=== PATIENT | female | born 1970 | race Caucasian/White ===

== ENCOUNTER → 2018-03-31 08:45 | Outpatient (CLI) | payer OTHER, SELFPAY ==
--- NOTE | 2018-03-31 08:50 | ECHOD_ITS ---
Reason For Study: MV DISORDER Procedure This was a 2D Doppler, Color Flow transthoracic echocardiogram. The exam was of adequate technical quality. Exam performed in department. Left Ventricle Normal LV size. Left ventricular systolic function is normal. The estimated ejection fraction is 60 %. No evidence for diastolic dysfunction. No regional wall motion abnormalities noted. Right Ventricle Normal RV size. Normal systolic function. Atria The left atrium is mildly enlarged. Normal right atrium. No doppler evidence for ASD. Mitral Valve There is no mitral annular calcification. Mild diffuse mitral valve thickening. Mild mitral valve prolapse. Trivial mitral valve insufficiency. Tricuspid Valve Normal tricuspid valve. Trivial tricuspid valve insufficiency. Right ventricular systolic pressure estimated to be 26 mmHg. Aortic Valve Trisinus/trileaflet aortic valve. Normal aortic valve. Pulmonic Valve The pulmonic valve is not well visualized. Mild (1+) pulmonic valve insufficiency. Great Vessels Normal sized aortic root. Pericardium/Pleural No pericardial effusion. MMode/2D Measurements & Calculations LVIDd: 5.1 cm IVSd: 1.1 cm Ao root diam: 3.3 cm LVIDs: 3.2 cm LVPWd: 1.0 cm LA dimension: 3.9 cm RVDd: 3.1 cm FS: 36.9 % LAV(MOD-bp): 60.8 ml LA A4 area: 19.2 cm2 RA A4 area: 19.1 cm2 LAV(MOD-bp) Indexed: 83.2 ml/m2 LAV(MOD-sp2): 63.5 ml LAV(MOD-sp4): 52.6 ml Doppler Measurements & Calculations MV E max wilian: 92.5 cm/sec Lat Peak E' Wilian: 13.9 cm/sec Med Peak E' Wilian: 11.0 cm/sec MV A max wilian: 69.1 cm/sec E/E' lat: 6.7 E/E' med: 8.4 MV E/A: 1.3 Ao V2 max: 136.7 cm/sec LV V1 max: 100.7 cm/sec PA V2 max: 99.7 cm/sec Ao max P.5 mmHg LV V1 max P.1 mmHg PI end-d wilian: 124.6 cm/sec TR max wilian: 239.1 cm/sec TR max P.3 mmHg Interpretation Summary Left ventricular systolic function is normal. The estimated ejection fraction is 60 %. The left atrium is mildly enlarged. Mild diffuse mitral valve thickening. Mild mitral valve prolapse. Trivial mitral valve insufficiency. Trivial tricuspid valve insufficiency. Mild (1+) pulmonic valve insufficiency. Right ventricular systolic pressure estimated to be 26 mmHg. No evidence for diastolic dysfunction. Ordering Physician: Jesse Carpio Referring Physician: Jesse Carpio Performed By: Shelby Hunter RDCS, RVT
== END ==
PROVIDERS: Family Provider Family Medicine; PCP Family Medicine; Visit Provider Family Medicine
DX: I05.9 Rheumatic mitral valve disease, unspecified (principal)
CPT/HCPCS: 93306

== ENCOUNTER 2018-05-10 16:00 | Outpatient (RCR) | payer OTHER, SELFPAY ==
--- NOTE | 2018-03-22 10:45 | HP.PTEVAL_ITS ---
Patient's Visit Information KRISTI MEDRANO is a 47 year old F referred to Physical Therapy by Jesse Carpio with a diagnosis of R plantar fascitis. Date of Evaluation: 03/16/18 Physical Therapist: Darci Nair - Visit Plan Frequency: 2x /Week Duration: 4 Weeks Plan: Start with G/S stretching, plantar fascia stretching, DFM to plantar fascia/graston. Use US to reduce symptoms. Aggressive stretching as tolerated. - Subjective Subjective: Pt. is here today for her initial evaluation with diagnosis of R foot plantar fascitis. Pt. reports having this pain for ~4-5 years, but has recently become worse. Pt. has has some relief with purchasing over the counter orthotics. Pt. works as a home health aide and has been having a lot of pain with walking, negotiating stairs, increased pain in mornings. She does have a night splint that she has been wearing. Pt. has not trialed any exercises for her symptoms. Pt. denies N/T in either LEs. Pt. reports being able to walk upto 1 mile, but has to stop due to pain. Pt. has recently purchased new shoes which helps. Pt. is hopeful to reduce symptoms in order to get back to work and recreational walking with increased tolerance. - Pain R plantar fascia Pain Intensity (Out of 10): 4 Pain Intensity Range: 1, 6 - Objective POSTURE: PT. has normal posture in stance. Pt. has slight over pronation in SLS. Pt. reports increased pain in barefoot. PALPATION: Pt. has increased pain with palpation of inferior aspect of calcaneus, most likely heel spur. Pt. has pain at plantar fascia insertion. Pt. has pain throughout longitudinal arch. NEUROLOGICAL: Pt. has normal sensation to light and sharp touch throughout bilateral. Pt. has 2+ bilateral achilles and patellar DTR bilaterally. Pt. is able to rise on heels and toes without issues, no visible weakness noted. ROM: L ankle- DF 12drg, PF 55deg, INV 18deg, EVR 18. R ankle- 8 deg of DF, PF 54deg, INV 18deg, EVR 18deg. MMT: 5/5 throughout bilateral ankles, 4+/5 bilateral foot intrinsic strength. GAIT: Pt. ambulates without AD. Pt. has slight antalgic pattern during R stance phase. Pt. has increased foot pronation with hind foot valgus. STAIRS: Pt. has increased pain with eccentric loading with R stance phase, no pain with ascending. SPECIAL TESTING: + windlass testing on R side, both unloaded and loaded. - Goals Goal 1:: Pt. to be I with HEP. Goal Time Frame: 4-6 Weeks Goal 2:: Pt. to have increased R ankle DF to 18deg reducing stress applied to plantar fascia with gait and standing positions. Goal Time Frame: 4-6 Weeks Goal 3:: Pt. to ambulate unlimited distance with 0-2/10 pain allowing for increased community mobility and tolerance to recreational walking. Goal Time Frame: 4-6 Weeks Goal 4:: Pt. to negotiate steps with reciprocal pattern with 1 HR with 0-2/10 pain allowing for increased tolerance to all work and home activities. Goal Time Frame: 4-6 Weeks Goal 5:: Pt. to complete all work related activities with 0-2/10 pain allowing for increased tolerance to all work activities. Goal Time Frame: 4-6 Weeks - Rehabilitation Potential Physical Therapy Diagnosis: Pt. has signs and symptoms consistent withR plantar fascitis, but also has heel spuring that may be contributing to her issues. Pt. has descreased facia length and G/S length. Pt. Rehabilitation Potential: Excellent - Anticipated Interventions Patient/Client Instruction: Educate patient on: Condition, Plan of Care, Risk Factors, Benefits of Fitness Program For the Purpose of:: To improve health and function, To foster healthy habits, To improve decision making, To facilitate caregiver knowledge, To improve self management, To prevent re-injury, To improve ability to perform tasks related to life management, To improve tolerance to ADL's Therapeutic Exercise to Include: Strength training, Power training, Body mechanics, Postural training, Flexibilty training, Passive ROM, Active ROM For the Purpose of:: To decrease pain, To increase ROM, To improve nutrient delivery to tissue, To increase oxygenation perfusion, To improve muscle performance and motor function, To improve gait and locomotor functions, To improve health of tissue, To decrease soft tissue restriction, To increase flexibility/ROM, To improve endurance, To improve balance Manual Therapy Techniques to Include: Massage, Mobilization, Passive ROM, Functional dry needling, Soft tissue mobilization For the Purpose of:: To decrease pain, To decrease swelling/inflammation, To increase ROM Ultrasound (thermal/non thermal): Yes For the Purpose of:: To decrease pain, To decrease swelling/inflammation, To increase ROM, To improve health of tissue, To decrease soft tissue restriction, To increase flexibility/ROM Thank you for the opportunity to evaluate your patient. For Medicare and Medicare HMO plans, please review the plan of care and approve it. It will need to be FAXED BACK to us at [phone] for Medicare purposes. Please let me know if there are questions or concerns regarding this plan of care. Physician Signature: Date:
--- NOTE | 2018-05-11 07:58 | HP.PTDCSUM ---
HP - PT D/C Summary It has been my pleasure to treat KRISTI MEDRANO under orders from Jesse Carpio, for the diagnosis of R plantar fascitis for a total of 8 visit(s). Discharge Date: 05/10/18 Please see the following information for a summary of their discharge status. - Subjective Subjective: Pt. reports having continued pain in lateral heel. Pt. ambulates with antalgic pattern. She reports having a good few weeks after injection, but is getting worse again. Pt. desires to follow up with physician at this point in time. - Pain R plantar fascia Pain Intensity (Out of 10): 0 R inferior calcaneus Pain Intensity (Out of 10): 3 - Overall Improvement % Improvement: 50 - Objective Objective/Function: Pt. has full motion of R ankle. Pt. has no pain throughout plantar fascia or longitudinal arch. Pt. has marked pain at lateral plantar surfaces of calcaneus. Pt. had 5/5 strength throughout ankle. GAIT- pt. continues to ambulates with antalgic pattern during heel strike and R stance phase. - Goals Goal 1:: Pt. to be I with HEP. Goal Progress: Goal Met Goal 2:: Pt. to have increased R ankle DF to 18deg reducing stress applied to plantar fascia with gait and standing positions. Goal Progress: Goal Met Goal 3:: Pt. to ambulate unlimited distance with 0-2/10 pain allowing for increased community mobility and tolerance to recreational walking. Goal Progress: Not Progressing Goal 4:: Pt. to negotiate steps with reciprocal pattern with 1 HR with 0-2/10 pain allowing for increased tolerance to all work and home activities. Goal Progress: Progressing Goal 5:: Pt. to complete all work related activities with 0-2/10 pain allowing for increased tolerance to all work activities. Goal Progress: Not Progressing - Plan Plan: Pt. to follow up with physician at this point in time to determine best course of action. - D/C Information Discharge Comments: Pt. was seen for her plantar fascitis in her R foot. Pt. is no longer having fascia pain, but is having lateral calcaneal pain with walking. Pt. has full motion of R ankle and strength. Pt. is still having pain during walking and is not progressing as expected with PT. Pt. will be DC back to physician at this point in time. If there are questions or concerns regarding this patient's physical therapy, please feel free to call me at [phone]. Thank you for the referral of this patient. Sincerely, Darci Nair
== END 2018-05-10 19:00 | disposition home or self-care (01) ==
LOC: PT 16:00
PROVIDERS: Family Provider Family Medicine; PCP Family Medicine; Visit Provider Family Medicine
DX: M72.2 Plantar fascial fibromatosis (principal)
CPT/HCPCS: 97035; 97110; 97162

== ENCOUNTER → 2018-05-19 12:46 | Outpatient (CLI) | payer OTHER, SELFPAY ==
--- NOTE | 2018-05-19 13:10 | RAD_ITS ---
STUDY: X-RAY - RIGHT FOOT CLINICAL: Female, 47 years old. Plantar fascial fibromatosis. TECHNIQUE: 3 weight. view(s) of the foot. COMPARISON: None. FINDINGS: There is an early enthesophyte involving the posterior superior calcaneus at the site of insertion of the Achilles tendon. There is a small plantar calcaneal spur. Normal talus and remaining tarsal bones. Normal visualized subtalar, talonavicular, calcaneocuboid, tarsal and tarsometatarsal articulations. Minor periarticular spurring at the lateral head of the first metatarsal. Normal 2-5 metatarsi. There is mild degenerative arthrosis of the metatarsophalangeal joint of the hallux . Normal tibial and fibular sesamoid bones. Normal interphalangeal joint of the great toe. Minor lateral particular spurring at the base of the first proximal phalanx Normal distal phalanx of the great toe. Normal second through fifth metatarsophalangeal joints. Normal interphalangeal joints and phalanges of the lesser toes. The soft tissue structures are unremarkable. There is no demonstrated osseous destructive lesion or fracture. RAD/Foot min 3 Views IMPRESSION: Minor degenerative changes of the foot, as described. Electronically Signed: Dell Brown MD at 19:45 EDT , Service support ,
== END ==
PROVIDERS: Family Provider Family Medicine; PCP Family Medicine; Visit Provider Family Medicine
DX: M72.2 Plantar fascial fibromatosis (principal)
CPT/HCPCS: 73630

== ENCOUNTER → 2018-07-14 08:12 | Outpatient (CLI) | payer OTHER, SELFPAY | PROVIDERS: Family Provider Family Medicine; PCP Family Medicine; Visit Provider Obstetrics & Gynecology | DX: Z12.31 Encounter for screening mammogram for malignant neoplasm of breast (principal) | CPT/HCPCS: 77063; 77067 ==

== ENCOUNTER → 2018-08-25 09:54 | Outpatient (CLI) | payer OTHER, SELFPAY ==
[2018-08-25 12:24] LABS: Erythrocyte Sedimentation Rate 20 mm/hr (0-20)
[2018-08-25 12:30] LABS: Absolute Lymphocyte Count 2.09 X10^3/ul (0.83-4.51); Absolute Neutrophil Count 5.9 X10^3/uL (2.0-7.7); Basophil# 0.04 X10^3/uL; Basophil% 0.4 % (0-1); Eosinophil# 0.16 X10^3/uL; Eosinophils% 1.8 % (0-5); Hematocrit 44.2 % (37-47); Hemoglobin 14.2 g/dl (12.0-15.0); Lymphocyte # 2.09 X10^3/ul (4.0); Lymphocyte % 23.5 % (19-41); Mean Corp Hgb Conc 32.1 g/gl (32-36); Mean Corpuscular Hgb 30.6 pg (27.0-32.0); Mean Corpuscular Volume 95.3 fL (81-99); Monocyte# 0.72 X10^3/uL; Monocyte% 8.1 % (0-10); Neutrophil # 5.88 X10^3/uL (2.7-7.7); Neutrophil % 66.1 % (47-70); Platelet Count 321 K/mm3 (150-450); RBC Distribution Width SD 44.9 fl (35.1-43.9); Red Blood Count 4.64 M/mm3 (4.2-5.4); White Blood Count 8.9 K/mm3 (4.4-11.0)
[2018-08-25 12:34] LABS: POSITIVE COUNT NO; POSITIVE DIFFERENTIAL NO; POSITIVE MORPHOLOGY NO
[2018-08-25 12:43] LABS: Vitamin B12 1118 pg/mL (211-911); Vitamin D,25 Hydroxy 36.6 ng/mL (29.95-100.01)
[2018-08-25 12:49] LABS: AST(SGOT) 18 U/L (15-37); Alanine Aminotransfer ALT/SGPT 30 U/L (13-56); Albumin, Serum 3.8 g/dL (3.2-5.0); Alkaline Phosphatase 87 U/L (45-117); Anion Gap 7 (5-15); BUN 12 mg/dL (7-18); BUN/Creat Ratio 14.5 RATIO (10-20); Calcium,Total 9.2 mg/dL (8.5-10.1); Chloride 105 mmol/L (98-107); Creatinine, Serum 0.83 mg/dL (0.55-1.02); EST Glomerular Filtration Rate 78 mL/min (>60); Est Glom Filt Rate - Afr Amer 95 mL/min (>60); Ferritin 81 ng/mL (8-252); Glucose 85 mg/dL (74-106); Iron 101 ug/dL (50-170); Potassium 4.1 mmol/L (3.5-5.1); Protein, Total 7.8 g/dL (6.4-8.2); Sodium Level 139 mmol/L (136-145); T4 Free Direct 0.91 ng/dL (0.76-1.46); Thyroid Stim Hormone (TSH) 3.46 uIU/mL (0.358-3.74)
== END ==
PROVIDERS: Family Provider Family Medicine; PCP Family Medicine; Visit Provider Family Medicine
DX: R53.83 Other fatigue (principal); E03.9 Hypothyroidism, unspecified
CPT/HCPCS: 36415; 80053; 82306; 82607; 82728; 83540; 84439; 84443; 85025; 85652

== ENCOUNTER 2018-11-11 08:48 | Emergency (ER) | payer OTHER, SELFPAY ==
[2018-11-11 08:49] VITALS: BP 135/71; PULSE 75; RESP 17; TEMP 36.8; O2SAT 96; BMI 35.9
--- NOTE | 2018-11-11 09:00 | EKG12_ITS ---
Test Reason : GEN ILLNESS Blood Pressure : / mmHG Vent. Rate : 070 BPM Atrial Rate : 070 BPM P-R Int : 140 ms QRS Dur : 084 ms QT Int : 406 ms P-R-T Axes : 023 -07 028 degrees QTc Int : 438 ms Normal sinus rhythm Normal ECG Confirmed by ABRIL BARNES ([id number]), editor house organ RYANNE MATHEW ([id number] on 11/17/2018 2:44:24 PM Referred By: SONYA Confirmed By:ABRIL BARNES
--- NOTE | 2018-11-11 09:00 | RAD_ITS ---
STUDY: X-RAY CHEST REASON FOR EXAM: Female, 47 years old. Congestion TECHNIQUE: Frontal and lateral views of the chest. COMPARISON: 03/28/2017 FINDINGS: The lungs are clear and expanded. There is no demonstrated pleural abnormality. Normal size heart. Normal mediastinum and fred. Normal visualized pulmonary arteries. Normal visualized aortic arch and descending thoracic aorta. Normal visualized thoracic spine. Normal visualized ribs, clavicles, and shoulders. There is no demonstrated abnormality of the visualized soft tissue structures of the upper abdomen. RAD/Chest PA and Lateral IMPRESSION: Normal x-ray examination of the chest. Electronically Signed: Juan Garcia MD at 9:50 EST Tel , Service support ,
--- NOTE | 2018-11-11 09:10 | ED.VISSUMM ---
- ER Visit Summary Date of Service: 11/11/18 Chief Complaint: Cough, cold symptoms History of Present Illness: The patient is a 47 F with no history of underlying lung disease presents with cough. Patient states that she was recently diagnosed with sinus infection. She completed a course of azithromycin. Her last dose was 3 days ago. States over the past 2 days, she began to feel worse. She feels like she is having difficulty breathing. She had a scant cough without productive sputum. She denies any fevers but has had some chills and sweats. She denies any underlying history of lung disease. She does wear CPAP at night. She denies chest pain. Physical Examination: Vital signs reviewed General: Well-nourished, well-developed Head: Normocephalic, atraumatic Eyes: Pupils equal and reactive, extraocular muscles intact Neck, supple, no lymphadenopathy Heart: Regular rate and rhythm Respiratory: No distress, scant wheeze throughout Abdomen: Soft, nontender, nondistended, no peritoneal signs Back: Nontender Extremities: Nontender, no edema, no cords Skin: Normal color no rash Neuro: Alert and oriented, no focal or lateralizing deficits Test Results: [] Emergency Department Course and Treatment: The patient presents with cough, shortness of breath, and wheezing. She is not hypoxic. She has no tachypnea. She was given nebulized breathing treatment which improved her aeration. She was also given steroids. Her x-ray shows no evidence of volume overload, enlarged cardiac silhouette, pneumothorax, or other dangerous process EKG demonstrated sinus rhythm without evidence of acute ischemia. My suspicion is that this is likely viral bronchitis causing her bronchospasm. She has already been on antibiotics. She does not have a fever. She does not have pneumonia. I do not see indication to continue antibiotics at this time. I am going to treat the patient with an inhaler and a prednisone burst. She is comfortable with this plan of care. She will be discharged home. Treatment Plan: [] Disposition: Discharge Impression: Viral bronchitis This note was generated with [employer] dictation software. It may contain incorrect words, spelling, and punctuation that were not noted in review of the chart prior to signing ED Disposition - Plan for ED Patient: Chief Complaint: General Illness Instructions: ED Wheezing Prescriptions: Albuterol Inhaler [Ventolin Hfa] 2 puff INHALATION Q4H PRN PRN #1 inhaler PRN Reason: Wheezing Prednisone 10 mg PO UD #33 tab Referrals: Conner Carpio MD [Primary Care Provider] -
[2018-11-11 09:15] VITALS: PULSE 79; RESP 18
[2018-11-11] MEDS: Ipratropium/Albuterol Sulfate 3 ML AMPUL.NEB INHALATION (09:15)
[2018-11-11] MEDS: predniSONE 20 MG Tablet 60 MG PO (10:00)
[2018-11-11 10:04] VITALS: BP 134/63; PULSE 73; RESP 17; O2SAT 94
== END 2018-11-11 10:05 | disposition home or self-care (01) ==
PROVIDERS: Emergency Provider Emergency Medicine; Family Provider Family Medicine; PCP Family Medicine
DX: J20.8 Acute bronchitis due to other specified organisms (principal); E07.9 Disorder of thyroid, unspecified; Z79.899 Other long term (current) drug therapy
CPT/HCPCS: 71046; 93005; 94640; 99284

== ENCOUNTER → 2018-11-26 17:48 | Outpatient (CLI) | payer OTHER, SELFPAY ==
[2018-11-11 08:49] VITALS: BMI 35.9
== END ==
PROVIDERS: Family Provider Family Medicine; PCP Family Medicine; Referring Provider Podiatrist; Visit Provider Podiatrist
DX: L60.0 Ingrowing nail (principal)
CPT/HCPCS: 87070; 87075; 87077; 87186; 87205

== ENCOUNTER → 2018-12-06 08:52 | Outpatient (CLI) | payer OTHER, SELFPAY ==
[2018-11-11 08:49] VITALS: BMI 35.9
[2018-12-06 10:12] LABS: Cholesterol 172 mg/dL (200); Glucose 97 mg/dL (74-106); High Density Lipoprotein 66 mg/dL; Triglycerides 89 mg/dL; Very Low Density Lipoprotein 18 mg/dL (5-40)
[2018-12-06 10:17] LABS: Vitamin D,25 Hydroxy 44.7 ng/mL (29.95-100.01)
== END ==
PROVIDERS: Family Provider Family Medicine; PCP Family Medicine; Visit Provider Family Medicine
DX: E78.5 Hyperlipidemia, unspecified (principal)
CPT/HCPCS: 36415; 80061; 82306; 82947

== ENCOUNTER → 2018-12-10 18:55 | Outpatient (CLI) | payer OTHER, SELFPAY ==
[2018-11-11 08:49] VITALS: BMI 35.9
[2018-12-10 21:06] LABS: M R Staph aureus DNA By PCR POSITIVE (Negative); Probe Check PASS; Staph aureus DNA By PCR POSITIVE (Negative)
--- OUTSIDE RECORDS SUMMARY | 2019-02-14 08:21 | XMS RPT_ITS ---
:1970 Author Organization OHIP Support Name Relationship Address Phone [facility] Unavailable [address] + [place] [address] PHAN MEDRANO Unavailable [address] [place] [address] SUMMMERS, IOLA Unavailable [address] + [place] [address] [facility] Unavailable [address] + [place] [address] ABDIRAHMANKARRI PHAN Unavailable [address] [place] [address] SUMMMERS, IOLA Unavailable [address] + [place] [address] [facility] Unavailable [address] + [place] [address] IVKARRI PHAN Unavailable [address] [place] [address] SUMMMERS, IOLA Unavailable [address] + [place] [address] [facility] Unavailable [address] + [place] [address] IVKARRI PHAN Unavailable [address] [place] [address] SUMMMERS, IOLA Unavailable [address] + [place] [address] [facility] Unavailable [address] + [place] [address] MITCHELL PHAN Unavailable [address] [place] [address] SUMMMERS, IOLA Unavailable [address] + [place] [address] [facility] Unavailable [address] + [place] [address] MITCHELL PHAN Unavailable [address] [place] [address] SUMMMERS, IOLA Unavailable [address] + [place] [address] [facility] Unavailable [address] + [place] [address] IVPHAN ZENG Unavailable [address] [place] [address] SUMMMERS, IOLA Unavailable [address] + [place] [address] [facility] Unavailable [address] + [place] [address] MITCHELL PHAN Unavailable [address] [place] [address] SUMMMERS, IOLA Unavailable [address] + [place] [address] [facility] Unavailable [address] + [place] [address] PHAN MEDRANO Unavailable [address] [place] [address] SUMMMERS, IOLA Unavailable [address] + [place] [address] [facility] Unavailable [address] + [place] [address] MITCHELL PHAN Unavailable [address] [place] [address] SUMMMERS, IOLA Unavailable [address] + [place] [address] [facility] Unavailable [address] + [place] [address] IVKARRI PHAN Unavailable [address] [place] [address] SUMMMERS, IOLA Unavailable [address] + [place] [address] Care Team Providers Name Role Phone Jesse Carpio Primary Care Unavailable Jamil Vu Attending Unavailable Ranney, Christopher Attending Unavailable Ranney, Christopher Primary Care Unavailable Ranney, Christopher Attending Unavailable [facility] , Jamil Attending Unavailable Ranney, Christopher Primary Care Unavailable , Jamil Referring Unavailable , Jamil Attending Unavailable Ranney, Christopher Primary Care Unavailable , Jamil Referring Unavailable Ranney, Christopher Attending Unavailable Ranney, Christopher Referring Unavailable Ranney, Christopher Primary Care Unavailable Ranney, Christopher Attending Unavailable Ranney, Christopher Referring Unavailable Ranney, Christopher Primary Care Unavailable Edgar Sol Attending Unavailable Ranney, Christopher Referring Unavailable Ranney, Christopher Attending Unavailable Ranney, Christopher Referring Unavailable [facility], [facility] Unavailable Seals, Chip Attending Unavailable Seals, Chip Referring Unavailable Ran[facility], [facility] Unavailable Ranney, Christopher Attending Unavailable Ranney, Christopher Primary Care Unavailable PROBLEMS PROBLEMS DATE TYPE CONDITION / CODE ATTENDING STATUS SOURCE 12/11/2018 Unknown L60.0 - Ingrowing Jamil Active [place] nail / Community L60.0(ICD-10) Hospital Repository 05/19/2018 Unknown 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 TOE TYPE CODE TESTS RESULT OUT OF REFERENCE UNITS RANGE LAB L8200.1100 Negative High MRSA POSITIVE RESULT LAB L8200.1150 Negative High SA RESULT POSITIVE Performed By: #### L8200.1075 #### [facility] [address] [place], [address] Observed: 2018 Status: F Source: [place] CULTURE, DEEP WOUND 3:30 PM [facility] REPOSITORY Results called on 12/16/180909 by MARIANNE to [phone]. Gram Stain Gram Stain 2+ Red Blood Cells No White Blood Cells No organisms seen Wound Culture #4 Gram positive micah suggestive of a diptheroid. Copy of report sent to Infection Control Printer [id number] 12/16/18 0737 MARIANNE. ORGANISM 1: Staphylococcus haemolyticus Amount Growth 1+ ORGANISM 2: Staphylococcus epidermidis Amount Growth 1+ ORGANISM 3: Streptococcus sanguinis Amount Growth Rare ORGANISM 4: Gram positive micah Amount Growth 1+ ORGANISM 5: Meth. resistant Staph. aureus Amount Growth Rare Staphylococcus haemolyticus: REACTION Cefoxitin *NF NEG Doxycline 1 S Daptomycin $$ 0.25 S Clindamycin $$ 0.5 S Inducable Clindamycin Resistan NEG Erythromycin $ >=8 R Gentamicin $ <=0.5 S Levofloxacin $ <=0.12 S Linezolid $$$$ 2 S Moxifloxicin *NF <=0.25 S Oxacillin NF <=0.25 S Tigecycline $$$$ <=0.12 S Rifampin $$ <=0.5 S Tetracycline NF >=16 R Trimethoprim/Sulfametho $ <=10 S Vancomycin $ <=0.5 S (NF) indicates non-formulary drug at [facility]. Approval by Infectious Disease Specialist required before non-formulary drugs may be ordered and/or dispensed. * CLSI guidelines does not recommend testing of cephalosporins. This interpretation is deduced from Beta-lactam/penicillin results. Staphylococcus epidermidis: REACTION Cefoxitin *NF POS Doxycline 1 S Daptomycin $$ 0.5 S Clindamycin $$ <=0.12 S Inducable Clindamycin Resistan NEG Erythromycin $ >=8 R Gentamicin $ <=0.5 S Levofloxacin $ <=0.12 S Linezolid $$$$ 1 S Moxifloxicin *NF <=0.25 S Oxacillin NF >=4 R Tigecycline $$$$ <=0.12 S Rifampin $$ <=0.5 S Tetracycline NF 2 S Trimethoprim/Sulfametho $ 80 R Vancomycin $ 1 S (NF) indicates non-formulary drug at [facility]. Approval by Infectious Disease Specialist required before non-formulary drugs may be ordered and/or dispensed. * CLSI guidelines does not recommend testing of cephalosporins. This interpretation is deduced from Beta-lactam/penicillin results. Streptococcus sanguinis: REACTION Ampicillin $ 0.50 I Benzylpenicillin NF 0.25 I Cefotaxime (Other dx) $ <=0.12 S Ceftriaxone (other dx) $ <=0.12 S Clindamycin $$ <=0.25 S Erythromycin $ <=0.12 S Linezolid $$$$ <=2 S Vancomycin $ 0.5 S (NF) indicates non-formulary drug at [facility]. Approval by Infectious Disease Specialist required before non-formulary drugs may be ordered and/or dispensed. * CLSI guidelines does not recommend testing of cephalosporins. This interpretation is deduced from Beta-lactam/penicillin results. Meth. resistant Staph. aureus: REACTION Cefoxitin *NF POS Doxycline <=0.5 S Daptomycin $$ 0.25 S Clindamycin $$ >=4 R Inducable Clindamycin Resistan NEG Erythromycin $ >=8 R Gentamicin $ <=0.5 S Levofloxacin $ >=8 R Linezolid $$$$ 2 S Moxifloxicin *NF >=8 R Oxacillin NF >=4 R Tigecycline $$$$ <=0.12 S Rifampin $$ <=0.5 S Tetracycline NF <=1 S Trimethoprim/Sulfametho $ <=10 S Vancomycin $ <=0.5 S (NF) indicates non-formulary drug at [facility]. Approval by Infectious Disease Specialist required before non-formulary drugs may be ordered and/or dispensed. * CLSI guidelines does not recommend testing of cephalosporins. This interpretation is deduced from Beta-lactam/penicillin results. Cult, Anaerobic Studies have confirmed that Anaerobic Gram Positive Cocci are routinely susceptible to: Penicillin/Ampicillin, Ampicillin/Sulbactam, Piperacillin/Tazobactam, Cefoxatin, Ertapenem, Imipenem, Meropenem and Metronidazole and vary in resistance to: Clindamycin and Moxifloxacin. ORGANISM 1: Anaerobic cocci Performed By: #### M100.1500 #### [facility] [address] [place], [place], [address] LIPID PROFILE Collected: 12/06/2018 Status: F Source: [place] 8:56 AM [facility] REPOSITORY TYPE CODE TESTS RESULT OUT OF RANGE REFERENCE UNITS LAB L501.4900 200 mg/dL Normal CHOL 172 Result Comment: <200 mg/dL Desirable 200-240 mg/dL Borderline >240 mg/dL High Risk LAB L501.5000 mg/dL Normal TRIG 89 Result Comment: The drugs N-Acetylcysteine and Metamizole may falsely depress this assay. Serum Triglycerides Reference Interval Normal <150 mg/dL Borderline high 150 - 199 mg/dL High 200 - 499 mg/dL Very High > or = 500 mg/dL LAB L501.6400 mg/dL Normal HDL 66 Result Comment: The drugs N-Acetylcysteine and Metamizole may falsely depress this assay. Reference Range HDL <40 mg/dL Low HDL Cholesterol HDL >or= 60 mg/dL High HDL Cholesterol LAB L501.6500 0-130 mg/dL Normal LDL 88 LAB L501.6600 5-40 mg/dL Normal VLDL 18 Performed By: #### L500.4100, L506.1000 #### [facility] [address] [place], [address] VITAMIN D,25 HYDROXY Collected: 12/06/2018 Status: F Source: [place] 8:56 AM [facility] REPOSITORY TYPE CODE TESTS RESULT OUT OF RANGE REFERENCE UNITS LAB L506.1000 29.95-100.01 ng/mL Normal Vitamin D 44.7 25-OH Result Comment: Vitamin D 25(OH) Status Range Deficiency <20 ng/mL (50nmol/L) Insuffciency 20 - 30 ng/mL (50 - 75 nmol/L) Sufficiency 30 - 100 ng/mL (75 - 250 nmol/L) Toxicity >100 ng/mL (>250 nmol/L) Performed By: #### L500.4100, L506.1000 #### [facility] [address] [place], [address] GLUCOSE Collected: 12/06/2018 Status: F Source: [place] 8:56 AM [facility] REPOSITORY TYPE CODE TESTS RESULT OUT OF RANGE REFERENCE UNITS LAB L501.0100 74-106 mg/dL Normal GLU 97 Result Comment: Please note revised GLUCOSE reference range effective 2017. Performed By: #### L501.0100 #### [facility] [address] [place], [address] Observed: 11/26/2018 Status: F Source: [place] CULTURE, DEEP WOUND 2:55 PM [facility] REPOSITORY Copy of report sent to Infection Control Printer [id number] 11/28/18 0857 TODD. Results called on 11/29/18-4654 by LALO to /Kaylah [phone]. Comments: LEFT HALLUX Gram Stain Gram Stain No White Blood Cells Rare Red Blood Cells Very Rare Gram positive cocci Wound Culture ORGANISM 1: Meth. resistant Staph. aureus Amount Growth 3+ Meth. resistant Staph. aureus: REACTION Benzylpenicillin NF >=0.5 R Cefoxitin *NF + Clindamycin $$ >=8 R Inducable Clindamycin Resistan - Erythromycin $ >=8 R Gentamicin $ <=0.5 S Levofloxacin $ >=8 R Linezolid $$$$ 2 S Oxacillin NF >=4 R Tigecycline $$$$ <=0.12 S Rifampin $$ <=0.5 S Tetracycline NF <=1 S Trimethoprim/Sulfametho $ <=10 S Vancomycin $ 1 S (NF) indicates non-formulary drug at [facility]. Approval by Infectious Disease Specialist required before non-formulary drugs may be ordered and/or dispensed. * CLSI guidelines does not recommend testing of cephalosporins. This interpretation is deduced from Beta-lactam/penicillin results. Cult, Anaerobic No anaerobic bacteria isolated. Performed By: #### M100.1500 #### [facility] [address] [place], [address] 12 LEAD ELECTROCARDIOGRAM Observed: 11/17/2018 Status: F Source: [place] 2:44 PM [facility] REPOSITORY [facility] [address] [place] [address] 12 Lead EKG 11/11/18 0919 MR#: [id number] Acct: [id number] Name: KRISTI MEDRANO Rep #: [id number] : 1970 47 From: Kaushal Barnes MD Attending Dr: Status: DEP ER Ordering Dr: Jamil Vu MD Date: 11/11/18 Location: ED Sex: F C Admitted: Test Reason : GEN ILLNESS Blood Pressure : / mmHG Vent. Rate : 070 BPM Atrial Rate : 070 BPM P-R Int : 140 ms QRS Dur : 084 ms QT Int : 406 ms P-R-T Axes : 023 -07 028 degrees QTc Int : 438 ms Normal sinus rhythm Normal ECG Confirmed by KAUSHAL BARNES ([id number]), editor house organ RYANNE MATHEW ([id number]) on 11/17/2018 2:44:24 PM Referred By: SONYA Confirmed By:KAUSHAL BARNES 11/17/18 1444 Date Kaushal Barnes MD CC: Jesse Carpio MD; Jamil Vu MD Signed EMERGENCY DEPARTMENT Observed: 11/11/2018 Status: F Source: [place] SUMMARY 11:01 AM [facility] REPOSITORY [facility] Medical Records Department [address] [place] [address] Emergency Department Summary 11/11/18 0910 MR#: [id number] Acct: [id number] Name: KRISTI MEDRANO Rep #: [id number] : 1970 47 From: Jamil Vu MD PCP: Jesse Carpio MD Status: DEP ER - ER Visit Summary Date of Service: 11/11/18 Chief Complaint: Cough, cold symptoms History of Present Illness: The patient is a 47 F with no history of underlying lung disease presents with cough. Patient states that she was recently diagnosed with sinus infection. She completed a course of azithromycin. Her last dose was 3 days ago. States over the past 2 days, she began to feel worse. She feels like she is having difficulty breathing. She had a scant cough without productive sputum. She denies any fevers but has had some chills and sweats. She denies any underlying history of lung disease. She does wear CPAP at night. She denies chest pain. Physical Examination: Vital signs reviewed General: Well-nourished, well-developed Head: Normocephalic, atraumatic Eyes: Pupils equal and reactive, extraocular muscles intact Neck, supple, no lymphadenopathy Heart: Regular rate and rhythm Respiratory: No distress, scant wheeze throughout Abdomen: Soft, nontender, nondistended, no peritoneal signs Back: Nontender Extremities: Nontender, no edema, no cords Skin: Normal color no rash Neuro: Alert and oriented, no focal or lateralizing deficits Test Results: [] Emergency Department Course and Treatment: The patient presents with cough, shortness of breath, and wheezing. She is not hypoxic. She has no tachypnea. She was given nebulized breathing treatment which improved her aeration. She was also given steroids. Her x-ray shows no evidence of volume overload, enlarged cardiac silhouette, pneumothorax, or other dangerous process EKG demonstrated sinus rhythm without evidence of acute ischemia. My suspicion is that this is likely viral bronchitis causing her bronchospasm. She has already been on antibiotics. She does not have a fever. She does not have pneumonia. I do not see indication to continue antibiotics at this time. I am going to treat the patient with an inhaler and a prednisone burst. She is comfortable with this plan of care. She will be discharged home. Treatment Plan: [] Disposition: Discharge Impression: Viral bronchitis This note was generated with [employer] Karma dictation software. It may contain incorrect words, spelling, and punctuation that were not noted in review of the chart prior to signing ED Disposition - Plan for ED Patient: Chief Complaint: General Illness Instructions: ED Wheezing Prescriptions: Albuterol Inhaler [Ventolin Hfa] 2 puff INHALATION Q4H PRN PRN #1 inhaler PRN Reason: Wheezing Prednisone 10 mg PO UD #33 tab Referrals: Conner Carpio MD [Primary Care Provider] - What to do if you have Problems For any increased pain, shortness of breath, bleeding, nausea or vomiting, chest pain, or any unexpected problems, contact your Primary Care Provider. Call [facility] ([phone]) or report to the closest Emergency Room. Call 911 if necessary. 11/11/18 1101 <Electronically signed by Jamil Vu MD> Date Jamil Vu MD Cosigner Signature (If Indicated): Date CC: Jesse Carpio MD CHEST PA AND LATERAL Observed: 11/11/2018 Status: F Source: [place] 9:01 AM [facility] REPOSITORY [facility] Imaging Services [address] [place] [address] Chest PA and Lateral MR#: [id number] Acct: [id number] Name: KRISTI MEDRANO Rep #: [id number] : 1970 F 47 From: Juan Garcia MD PCP: Jesse Carpio MD Status: REG ER Study: Chest PA and Lateral Date of Exam: 11/11/18 Exam# [id number] Ordering Dr: Jamil Vu MD STUDY: X-RAY CHEST REASON FOR EXAM: Female, 47 years old. Congestion TECHNIQUE: Frontal and lateral views of the chest. COMPARISON: 03/28/2017 FINDINGS: The lungs are clear and expanded. There is no demonstrated pleural abnormality. Normal size heart. Normal mediastinum and fred. Normal visualized pulmonary arteries. Normal visualized aortic arch and descending thoracic aorta. Normal visualized thoracic spine. Normal visualized ribs, clavicles, and shoulders. There is no demonstrated abnormality of the visualized soft tissue structures of the upper abdomen. RAD/Chest PA and Lateral IMPRESSION: Normal x-ray examination of the chest. Electronically Signed: Juan Garcia MD at 9:50 EST Tel , Service support , CC: Jesse Carpio MD; Jamil Vu MD Supply Teacher: Signed ERYTHROCYTE SED RATE Collected: 08/25/2018 Status: F Source: [place] 9:55 AM [facility] REPOSITORY TYPE CODE TESTS RESULT OUT OF RANGE REFERENCE UNITS LAB L102.0000 0-20 mm/hr Normal SED RATE 20 Performed By: #### L101.9900, L100.0100, L503.0105, L506.1000, L500.4050, L501.9520, L503.6150, L503.6550, L506.0400 #### [facility] [address] [place], [place], [id number] CBC W/DIFF, AUTOMATED Collected: 08/25/2018 Status: F Source: [place] 9:55 AM [facility] REPOSITORY TYPE CODE TESTS RESULT OUT OF RANGE REFERENCE UNITS LAB L100.1000 4.4-11.0 K/mm3 Normal WBC 8.9 LAB L100.1200 4.2-5.4 M/mm3 Normal RBC 4.64 LAB L100.1300 12.0-15.0 g/dl Normal HGB 14.2 LAB L100.1400 37-47 % Normal HCT 44.2 LAB L100.1500 81-99 fL Normal MCV 95.3 LAB L100.1600 27.0-32.0 pg Normal MCH 30.6 LAB L100.1700 32-36 g/gl Normal MCHC 32.1 LAB L100.1810 11.6-14.6 % Normal RDW CV 13.0 LAB L100.1820 35.1-43.9 fl High RDW SD 44.9 LAB L100.1900 150-450 K/mm3 Normal PLT 321 LAB L100.2000 6.2-12.0 fl Normal MPV 11.0 LAB L100.2100 47-70 % Normal NEUT% 66.1 LAB L100.2200 19-41 % Normal LY% 23.5 LAB L100.2300 0-10 % Normal MONO% 8.1 LAB L100.2400 0-5 % Normal EO% 1.8 LAB L100.2500 0-1 % Normal BASO% 0.4 LAB L100.2550 0.0-0.9 % Normal IM GRAN % 0.100 Result Comment: IG% - Immature Granulocytes (promyelocytes, myelocytes and metamyelocytes) > 1% indicates that a LEFT SHIFT is Present. LAB L100.2620 2.0-7.7 X10 3/uL Normal Absolute Neut 5.9 LAB L100.2720 0.83-4.51 X10 3/ul Normal Absolute Lymph 2.09 Performed By: #### L101.9900, L100.0100, L503.0105, L506.1000, L500.4050, L501.9520, L503.6150, L503.6550, L506.0400 #### [facility] [address] [place], [address] VITAMIN B12 Collected: 08/25/2018 Status: F Source: [place] 9:55 AM [facility] REPOSITORY TYPE CODE TESTS RESULT OUT OF REFERENCE UNITS RANGE LAB L503.0105 211-911 pg/mL High Vitamin B12 1118 Performed By: #### L101.9900, L100.0100, L503.0105, L506.1000, L500.4050, L501.9520, L503.6150, L503.6550, L506.0400 #### [facility] [address] [place], [place], [address] VITAMIN D,25 HYDROXY Collected: 08/25/2018 Status: F Source: [place] 9:55 AM [facility] REPOSITORY TYPE CODE TESTS RESULT OUT OF RANGE REFERENCE UNITS LAB L506.1000 29.95-100.01 ng/mL Normal Vitamin D 36.6 25-OH Result Comment: Vitamin D 25(OH) Status Range Deficiency <20 ng/mL (50nmol/L) Insuffciency 20 - 30 ng/mL (50 - 75 nmol/L) Sufficiency 30 - 100 ng/mL (75 - 250 nmol/L) Toxicity >100 ng/mL (>250 nmol/L) Performed By: #### L101.9900, L100.0100, L503.0105, L506.1000, L500.4050, L501.9520, L503.6150, L503.6550, L506.0400 #### [facility] [address] [place], [address] COMPREHENSIVE METABOLIC Collected: 08/25/2018 Status: F [facility] REPOSITORY TYPE CODE TESTS RESULT OUT OF RANGE REFERENCE UNITS LAB L501.0100 74-106 mg/dL Normal GLU 85 Result Comment: Please note revised GLUCOSE reference range effective 2017. LAB L501.1000 7-18 mg/dL Normal BUN 12 LAB L501.1100 0.55-1.02 mg/dL Normal CREAT,SERUM 0.83 Result Comment: The validity of the calculated GFR AND GFRAA in patients over 70 years has not been determined. Clinical correlation is essential. LAB L501.1110 >60 mL/min Normal EST GFR 78 Result Comment: Non- GFR Calc LAB L501.1115 >60 mL/min Normal EST GFR - AA 95 Result Comment: GFR Calc LAB L501.1300 10-20 RATIO Normal BUN/CRE 14.5 LAB L501.1500 6.4-8.2 g/dL T Normal PROT 7.8 LAB L501.1800 3.2-5.0 g/dL Normal ALB 3.8 LAB L501.1950 2.2-4.2 g/dL Normal GLOB 4.0 LAB L501.2000 0.9-2.4 RATIO Normal A/G 1.0 LAB L501.2200 8.5-10.1 mg/dL CA Normal 9.2 LAB L501.4100 15-37 U/L Normal AST 18 LAB L501.4305 45-117 U/L Normal ALK P 87 LAB L501.4405 13-56 U/L Normal ALT 30 LAB L501.4600 0.20-1.00 mg/dL T Normal BILI 0.40 LAB L501.5300 136-145 mmol/L NA Normal 139 LAB L501.5600 3.5-5.1 mmol/L K Normal 4.1 LAB L501.5900 98-107 mmol/L CL Normal 105 LAB L501.6100 21.0-32.0 mmol/L Normal CO2 27.0 LAB L501.6200 5-15 Normal GAP 7 Performed By: #### L101.9900, L100.0100, L503.0105, L506.1000, L500.4050, L501.9520, L503.6150, L503.6550, L506.0400 #### [facility] [address] [place], [address] THYROID STIM HORMONE Collected: 08/25/2018 Status: F Source: [place] (TSH) 9:55 AM [facility] REPOSITORY TYPE CODE TESTS RESULT OUT OF RANGE REFERENCE UNITS LAB L501.9520 0.358-3.74 uIU/mL Normal TSH 3.46 Performed By: #### L101.9900, L100.0100, L503.0105, L506.1000, L500.4050, L501.9520, L503.6150, L503.6550, L506.0400 #### [facility] [address] [place], [place], [id number] IRON Collected: 08/25/2018 Status: F Source: [place] 9:55 AM [facility] REPOSITORY TYPE CODE TESTS RESULT OUT OF RANGE REFERENCE UNITS LAB L503.6150 50-170 ug/dL Normal IRON 101 Performed By: #### L101.9900, L100.0100, L503.0105, L506.1000, L500.4050, L501.9520, L503.6150, L503.6550, L506.0400 #### [facility] [address] [place] [address] Ave[address] [place], [place], [id number] FERRITIN Collected: 08/25/2018 Status: F Source: [place] 9:55 AM [facility] REPOSITORY TYPE CODE TESTS RESULT OUT OF RANGE REFERENCE UNITS LAB L503.6550 8-252 ng/mL Normal FERRITIN 81 Performed By: #### L101.9900, L100.0100, L503.0105, L506.1000, L500.4050, L501.9520, L503.6150, L503.6550, L506.0400 #### [facility] [address] [place] [address] Ave[address] [place], [place], [id number] T4 FREE DIRECT Collected: 08/25/2018 Status: F Source: [place] 9:55 AM [facility] REPOSITORY TYPE CODE TESTS RESULT OUT OF RANGE REFERENCE UNITS LAB L506.0400 0.76-1.46 ng/dL Normal T4 FREE 0.91 DIRECT Performed By: #### L101.9900, L100.0100, L503.0105, L506.1000, L500.4050, L501.9520, L503.6150, L503.6550, L506.0400 #### [facility] [place], [address] SCREENING MAMM (CAD), Observed: 07/14/2018 Status: F Source: [place] 8:13 AM [facility] REPOSITORY [facility] Imaging Services [address] [place] [address] SCREENING MAMM (CAD), BILAT MR#: [id number] Acct: [id number] Name: KRISTI MEDRANO Rep #: [id number] : 1970 F 47 From: Bebeto Booker MD PCP: Jesse Carpio MD Status: REG CLI Study: SCREENING MAMM (CAD), BILAT Date of Exam: 07/14/18 Exam# [id number] Ordering Dr: Chip Collier MD MAMMOGRAPHY - BILATERAL SCREENING REASON FOR EXAM: Female, 47 years old. Routine annual screening examination. PERTINENT HISTORY: Non-contributory. TECHNIQUE: Digital bilateral breast jim (3D mammographic acquisition) in the CC and MLO projections. 2-D mediolateral oblique (MLO) and craniocaudad (CC) views of both breasts were obtained. CAD: Full Field Digital Mammography with Computer Added Detection was performed. COMPARISON: Comparison is made with prior study dated March 12, 2016 and prior ultrasound dated March 24, 2016. FINDINGS: Breast Composition: The breasts are heterogeneously dense, which may obscure small masses. There are no dominant masses or suspicious calcifications. No other significant abnormalities are identified. There has been no significant change since the prior study. BI/SCREENING MAMM (CAD), BILAT IMPRESSION: Stable bilateral screening mammogram. Yearly follow-up mammogram recommended. (A) ASSESSMENT CATEGORY: BIRADS Category 1: Negative. A letter regarding these results will be sent to the patient by the facility within 30 days. Approximately 10% of breast cancers are not detected by mammography. A normal mammogram should not delay biopsy of a clinically suspicious abnormality. [id number] Electronically Signed: Bebeto Booker MD at 9:46 EDT Tel [phone], Service support , CC: Jesse Carpio MD; Chip Collier MD Supply Teacher: Signed FOOT MIN 3 VIEWS Observed: 05/19/2018 Status: F Source: [place] 12:51 PM [facility] REPOSITORY [facility] Imaging Services [address] [place] [address] Foot min 3 Views MR#: [id number] Acct: [id number] Name: KRISTI MEDRANO Rep #: [id number] : 1970 F 47 From: Steven Brown MD PCP: Jesse Carpio MD Status: REG CLI Study: Foot min 3 Views Date of Exam: 05/19/18 Exam# [id number] Ordering Dr: Conner Carpio MD STUDY: X-RAY - RIGHT FOOT CLINICAL: Female, 47 years old. Plantar fascial fibromatosis. TECHNIQUE: 3 weight. view(s) of the foot. COMPARISON: None. FINDINGS: There is an early enthesophyte involving the posterior superior calcaneus at the site of insertion of the Achilles tendon. There is a small plantar calcaneal spur. Normal talus and remaining tarsal bones. Normal visualized subtalar, talonavicular, calcaneocuboid, tarsal and tarsometatarsal articulations. Minor periarticular spurring at the lateral head of the first metatarsal. Normal 2-5 metatarsi. There is mild degenerative arthrosis of the metatarsophalangeal joint of the hallux . Normal tibial and fibular sesamoid bones. Normal interphalangeal joint of the great toe. Minor lateral particular spurring at the base of the first proximal phalanx Normal distal phalanx of the great toe. Normal second through fifth metatarsophalangeal joints. Normal interphalangeal joints and phalanges of the lesser toes. The soft tissue structures are unremarkable. There is no demonstrated osseous destructive lesion or fracture. RAD/Foot min 3 Views IMPRESSION: Minor degenerative changes of the foot, as described. Electronically Signed: Dell Brown MD at 19:45 EDT , Service support , CC: Jesse Carpio MD Supply Teacher: Signed PT D/C SUMMARY (1) Observed: 05/11/2018 Status: F Source: [place] 7:58 AM [facility] REPOSITORY [facility] Physical Therapy [facility] [address] [place] [address]. [address] [place] [address] Fax REHABILITATION SERVICES DISCHARGE SUMMARY MR#: [id number] Acct: [id number] Name: KRISTI MEDRANO Rep #: [id number] : 1970 47 From: Darci Nair DPT Referring Dr.: Jesse Carpio MD Status: REG RCR Insurance: [employer] [id number] SELF PAY INSURANCE [place] - PT D/C Summary It has been my pleasure to treat KRISTI MEDRANO under orders from Jesse Carpio, for the diagnosis of R plantar fascitis for a total of 8 visit(s). Discharge Date: 05/10/18 Please see the following information for a summary of their discharge status. - Subjective Subjective: Pt. reports having continued pain in lateral heel. Pt. ambulates with antalgic pattern. She reports having a good few weeks after injection, but is getting worse again. Pt. desires to follow up with physician at this point in time. - Pain R plantar fascia Pain Intensity (Out of 10): 0 R inferior calcaneus Pain Intensity (Out of 10): 3 - Overall Improvement % Improvement: 50 - Objective Objective/Function: Pt. has full motion of R ankle. Pt. has no pain throughout plantar fascia or longitudinal arch. Pt. has marked pain at lateral plantar surfaces of calcaneus. Pt. had 5/5 strength throughout ankle. GAIT- pt. continues to ambulates with antalgic pattern during heel strike and R stance phase. - Goals Goal 1:: Pt. to be I with HEP. Goal Progress: Goal Met Goal 2:: Pt. to have increased R ankle DF to 18deg reducing stress applied to plantar fascia with gait and standing positions. Goal Progress: Goal Met Goal 3:: Pt. to ambulate unlimited distance with 0-2/10 pain allowing for increased community mobility and tolerance to recreational walking. Goal Progress: Not Progressing Goal 4:: Pt. to negotiate steps with reciprocal pattern with 1 HR with 0-2/10 pain allowing for increased tolerance to all work and home activities. Goal Progress: Progressing Goal 5:: Pt. to complete all work related activities with 0-2/10 pain allowing for increased tolerance to all work activities. Goal Progress: Not Progressing - Plan Plan: Pt. to follow up with physician at this point in time to determine best course of action. - D/C Information Discharge Comments: Pt. was seen for her plantar fascitis in her R foot. Pt. is no longer having fascia pain, but is having lateral calcaneal pain with walking. Pt. has full motion of R ankle and strength. Pt. is still having pain during walking and is not progressing as expected with PT. Pt. will be DC back to physician at this point in time. If there are questions or concerns regarding this patient's physical therapy, please feel free to call me at [phone]. Thank you for the referral of this patient. Sincerely, Darci Nair <Electronically signed by Darci Nair DPT> 05/11/18 0758 CC: Jesse Carpio MD CLS Signed ECHOCARDIOGRAM COMPLETE Observed: 03/31/2018 Status: F Source: [place] 5:47 PM [facility] REPOSITORY [facility] Cardiovascular Services [address] [place] [address] Echo Complete 03/31/18 0851 MR#: [id number] Acct: [id number] Name: KRISTI MEDRANO Rep #: [id number] : 1970 47 From: Edgar Sol MD Attending Dr: Jesse Carpio MD Status: REG CLI Ordering Dr: Conner Carpio MD Date: 03/31/18 Location: [facility] Sex: F C Admitted: Reason For Study: MV DISORDER Procedure This was a 2D Doppler, Color Flow transthoracic echocardiogram. The exam was of adequate technical quality. Exam performed in department. Left Ventricle Normal LV size. Left ventricular systolic function is normal. The estimated ejection fraction is 60 %. No evidence for diastolic dysfunction. No regional wall motion abnormalities noted. Right Ventricle Normal RV size. Normal systolic function. Atria The left atrium is mildly enlarged. Normal right atrium. No doppler evidence for ASD. Mitral Valve There is no mitral annular calcification. Mild diffuse mitral valve thickening. Mild mitral valve prolapse. Trivial mitral valve insufficiency. Tricuspid Valve Normal tricuspid valve. Trivial tricuspid valve insufficiency. Right ventricular systolic pressure estimated to be 26 mmHg. Aortic Valve Trisinus/trileaflet aortic valve. Normal aortic valve. Pulmonic Valve The pulmonic valve is not well visualized. Mild (1+) pulmonic valve insufficiency. Great Vessels Normal sized aortic root. Pericardium/Pleural No pericardial effusion. MMode/2D Measurements AND Calculations LVIDd: 5.1 cm IVSd: 1.1 cm Ao root diam: 3.3 cm LVIDs: 3.2 cm LVPWd: 1.0 cm LA dimension: 3.9 cm RVDd: 3.1 cm FS: 36.9 % LAV(MOD-bp): 60.8 ml LA A4 area: 19.2 cm2 RA A4 area: 19.1 cm2 LAV(MOD-bp) Indexed: 83.2 ml/m2 LAV(MOD-sp2): 63.5 ml LAV(MOD-sp4): 52.6 ml Doppler Measurements AND Calculations MV E max wilian: 92.5 cm/sec Lat Peak E' Wilian: 13.9 cm/sec Med Peak E' Wilian: 11.0 cm/sec MV A max wilian: 69.1 cm/sec E/E' lat: 6.7 E/E' med: 8.4 MV E/A: 1.3 Ao V2 max: 136.7 cm/sec LV V1 max: 100.7 cm/sec PA V2 max: 99.7 cm/sec Ao max P.5 mmHg LV V1 max P.1 mmHg PI end-d wilian: 124.6 cm/sec TR max wilian: 239.1 cm/sec TR max P.3 mmHg Interpretation Summary Left ventricular systolic function is normal. The estimated ejection fraction is 60 %. The left atrium is mildly enlarged. Mild diffuse mitral valve thickening. Mild mitral valve prolapse. Trivial mitral valve insufficiency. Trivial tricuspid valve insufficiency. Mild (1+) pulmonic valve insufficiency. Right ventricular systolic pressure estimated to be 26 mmHg. No evidence for diastolic dysfunction. Ordering Physician: Jesse Carpio Referring Physician: Jesse Carpio Performed By: Shelby Hunter RDCS, RVT 03/31/18 1747 Date Edgar Sol MD CC: Jesse Carpio MD Date Dictated: 03/31/18 0851 Date Transcribed: 03/31/18 1747 Supply Teacher: Signed INITAL EVALUATION (1) Observed: 03/22/2018 Status: F Source: [place] - PT 10:45 AM [facility] REPOSITORY [facility] Physical Therapy [facility] [address] [place], [place] [address] Fax REHABILITATION SERVICES INITIAL EVALUATION MR#: [id number] Acct: [id number] Name: KRISTI MEDRANO Rep #: [id number] : 1970 47 From: Darci Nair DPT Referring Dr.: Jesse Carpio MD Status: REG RCR Insurance: [employer] [id number] SELF PAY INSURANCE Patient's Visit Information KRISTI MEDRANO is a 47 year old F referred to Physical Therapy by Jesse Carpio with a diagnosis of R plantar fascitis. Date of Evaluation: 03/16/18 Physical Therapist: Darci Nair - Visit Plan Frequency: 2x /Week Duration: 4 Weeks Plan: Start with G/S stretching, plantar fascia stretching, DFM to plantar fascia/graston. Use US to reduce symptoms. Aggressive stretching as tolerated. - Subjective Subjective: Pt. is here today for her initial evaluation with diagnosis of R foot plantar fascitis. Pt. reports having this pain for 4-5 years, but has recently become worse. Pt. has has some relief with purchasing over the counter orthotics. Pt. works as a home health aide and has been having a lot of pain with walking, negotiating stairs, increased pain in mornings. She does have a night splint that she has been wearing. Pt. has not trialed any exercises for her symptoms. Pt. denies N/T in either LEs. Pt. reports being able to walk upto 1 mile, but has to stop due to pain. Pt. has recently purchased new shoes which helps. Pt. is hopeful to reduce symptoms in order to get back to work and recreational walking with increased tolerance. - Pain R plantar fascia Pain Intensity (Out of 10): 4 Pain Intensity Range: 1, 6 - Objective POSTURE: PT. has normal posture in stance. Pt. has slight over pronation in SLS. Pt. reports increased pain in barefoot. PALPATION: Pt. has increased pain with palpation of inferior aspect of calcaneus, most likely heel spur. Pt. has pain at plantar fascia insertion. Pt. has pain throughout longitudinal arch. NEUROLOGICAL: Pt. has normal sensation to light and sharp touch throughout bilateral. Pt. has 2+ bilateral achilles and patellar DTR bilaterally. Pt. is able to rise on heels and toes without issues, no visible weakness noted. ROM: L ankle- DF 12drg, PF 55deg, INV 18deg, EVR 18. R ankle- 8 deg of DF, PF 54deg, INV 18deg, EVR 18deg. MMT: 5/5 throughout bilateral ankles, 4+/5 bilateral foot intrinsic strength. GAIT: Pt. ambulates without AD. Pt. has slight antalgic pattern during R stance phase. Pt. has increased foot pronation with hind foot valgus. STAIRS: Pt. has increased pain with eccentric loading with R stance phase, no pain with ascending. SPECIAL TESTING: + windlass testing on R side, both unloaded and loaded. - Goals Goal 1:: Pt. to be I with HEP. Goal Time Frame: 4-6 Weeks Goal 2:: Pt. to have increased R ankle DF to 18deg reducing stress applied to plantar fascia with gait and standing positions. Goal Time Frame: 4-6 Weeks Goal 3:: Pt. to ambulate unlimited distance with 0-2/10 pain allowing for increased community mobility and tolerance to recreational walking. Goal Time Frame: 4-6 Weeks Goal 4:: Pt. to negotiate steps with reciprocal pattern with 1 HR with 0-2/10 pain allowing for increased tolerance to all work and home activities. Goal Time Frame: 4-6 Weeks Goal 5:: Pt. to complete all work related activities with 0-2/10 pain allowing for increased tolerance to all work activities. Goal Time Frame: 4-6 Weeks - Rehabilitation Potential Physical Therapy Diagnosis: Pt. has signs and symptoms consistent withR plantar fascitis, but also has heel spuring that may be contributing to her issues. Pt. has descreased facia length and G/S length. Pt. Rehabilitation Potential: Excellent - Anticipated Interventions Patient/Client Instruction: Educate patient on: Condition, Plan of Care, Risk Factors, Benefits of Fitness Program For the Purpose of:: To improve health and function, To foster healthy habits, To improve decision making, To facilitate caregiver knowledge, To improve self management, To prevent re-injury, To improve ability to perform tasks related to life management, To improve tolerance to ADL's Therapeutic Exercise to Include: Strength training, Power training, Body mechanics, Postural training, Flexibilty training, Passive ROM, Active ROM For the Purpose of:: To decrease pain, To increase ROM, To improve nutrient delivery to tissue, To increase oxygenation perfusion, To improve muscle performance and motor function, To improve gait and locomotor functions, To improve health of tissue, To decrease soft tissue restriction, To increase flexibility/ROM, To improve endurance, To improve balance Manual Therapy Techniques to Include: Massage, Mobilization, Passive ROM, Functional dry needling, Soft tissue mobilization For the Purpose of:: To decrease pain, To decrease swelling/inflammation, To increase ROM Ultrasound (thermal/non thermal): Yes For the Purpose of:: To decrease pain, To decrease swelling/inflammation, To increase ROM, To improve health of tissue, To decrease soft tissue restriction, To increase flexibility/ROM Thank you for the opportunity to evaluate your patient. For Medicare and Medicare HMO plans, please review the plan of care and approve it. It will need to be FAXED BACK to us at [phone] for Medicare purposes. Please let me know if there are questions or concerns regarding this plan of care. Physician Signature: Date: <Electronically signed by Darci Nair DPT> 03/22/18 1045 CC: Jesse Carpio MD CLS Signed For Medicare only, by signing this I certify the plan of care. Physicians Signature Date ALLERGIES ALLERGIES DATE TYPE / CODE NAME / CODE REACTION SEVERITY SOURCE 11/11/2018 Drug venom-honey Swelling SV [facility] Allergy/4160 [id number] Hospital 45647(SNOMED 98(RXNORM) Repository CT) ENCOUNTERS ENCOUNTERS ADMIT/DISCHARGE ACCOUNT ADMITTING ENCOUNTER LOCATION SOURCE NUMBER CLASS 2018 [id number] Ambulatory [place] 3 [facility] ing:LABSPEC Repository 12/06/2018 [id number] Ambulatory [place] 7 [facility] ing:LAB.FUTUR Repository E 11/26/2018 [id number] [place] 9 [facility] ing:LABSPEC Repository 11/21/2018 [id number] Ambulatory [place] 0 [facility] ing:LAB.FUTUR Repository E 11/11/2018/ [id number] Emergency Louise [place] 8 4 [facility] ing:ED Repository 08/25/2018 [id number] [place] 1 [facility] ing:MFPLAB Repository 07/14/2018 [id number] Ambulatory [place] [facility] 9 [facility] ing:OPBI Repository 05/19/2018 [id number] Ambulatory [place] 7 [facility] ing:MTRAD Repository 05/10/2018/ [id number] Ambulatory [place] 8 9 [facility] ing:PT Repository 03/31/2018 [id number] Ambulatory [place] 1 [facility] ing:CVS Repository 03/31/2018 [id number] Ambulatory BMSBuilding:W [place] 8 [facility] Repository PAYERS PAYERS ENCOUNTER GUARANTOR PAYER SUBSCRIBER SOURCE 2018 KRISTI Tavera Primary PHAN R [place] [id number] Insurance:HEALTH IVINODOB: [facility] [id number] [address]Hrtxtl Number: Repository 135[address]Ixd: 330 [id number] [phone] () Date:4365-48-81DE [address] [place] [address]YD: 2018 Secondary NOT GIVENUNK [place] Insurance:SELF PAY [facility] Number: Effective Repository Date:2018 12/06/2018 KRISTI Tavera Primary PHAN Gil [id number] Insurance:HEALTH IVINODOB: [facility] [id number] [address]Buvhit Number: Repository [id number]: (330 [id number] [phone] (HP) Date:2703-71-55JU [address] [address]BT: 12/06/2018 Secondary NOT GIVENUNK [place] Insurance:SELF PAY [facility] Number: Effective Repository Date:2018-11-21 11/26/2018 KRISTI Tavera Primary PHAN [place] [id number] Insurance:HEALTH IVINODOB: [facility] [id number] [address]Twripm Number: Repository [phone]: (330 [id number] [phone] () Date:3838-79-32PF [address] [address]BJ: 11/26/2018 Secondary NOT GIVENUNK [place] Insurance:SELF PAY [facility] Number: Effective Repository Date:2018-11-26 11/21/2018 KRISTI Tavera Primary PHAN R [place] [id number] Insurance:HEALTH IVINODOB: [facility] [id number] [address]Klewqt Number: Repository [phone]: (330 [id number] [phone] (HP) Date:5247-54-49EB [address] [address]CE: 11/21/2018 Secondary NOT GIVENUNK [place] Insurance:SELF PAY [facility] Number: Effective Repository Date:2018-11-21 11/11/2018 KRISTI Tavera Primary PHAN Gil [id number] Insurance:HEALTH IVINODOB: [facility] [id number] [address]Qaagjg Number: Repository [phone]: (330) [id number] [phone] (HP) Date:4224-23-00HH [address] [place] [address]VP: 11/11/2018 Secondary NOT GIVENUNK [place] Insurance:SELF PAY [facility] Number: Effective Repository Date:2018-11-11 08/25/2018 DOREAN A Primary PHAN IVINODOB: [place] [id number] Insurance:[facility] [id number] [address]Svmblj Number: Repository [id number]: (330) [id number] [phone] (HP) Date:7318-57-25EO [facility] [address] [place] [phone]: 08/25/2018 Secondary NOT GIVENUNK [place] Insurance:SELF PAY [facility] Number: Effective Repository Date:2018-08-25 07/14/2018 DOREAN A Primary PHAN IVINODOB: [place] [id number] Insurance:[facility] [id number] [address]Aywexm Number: Repository [phone]: (330) [id number] [phone] (HP) Date:4385-03-45KJ [address] [address]DC: 07/14/2018 Secondary NOT GIVENUNK [place] Insurance:SELF PAY [facility] Number: Effective Repository Date:2018-06-23 05/19/2018 DOREAN A Primary PHAN IVINODOB: [place] [id number] Insurance:[facility] [id number] [address]Cnwdxz Number: Repository [id number]: (330) [id number] [phone] (HP) Date:3814-08-74YC [address] [place] [address]WR: 05/19/2018 Secondary NOT GIVENUNK [place] Insurance:SELF PAY [facility]: Effective Repository Date:2018-05-19 05/10/2018 DOREAN A Primary PHAN IVINODOB: [place] [id number] Insurance:HEALTH [id number] [address]Rdjprv Number: Repository [phone]: (330 [id number] [phone] (HP) Date:4861-85-01WD [address] [place] [phone]: 05/10/2018 Secondary NOT GIVENUNK [place] Insurance:SELF PAY [facility] Number: Effective Repository Date:2018-03-11 03/31/2018 KRISTI A Primary PHNA IVINODOB: [place] [id number] Insurance:[facility] [id number] [address]Ypjdhg Number: Repository [phone]: (330 [id number] [phone] () Date:8933-02-62KH [address] [address]GI: 03/31/2018 Secondary NOT GIVENUNK [place] Insurance:SELF PAY [facility] Number: Effective Repository Date:2018-03-11 03/31/2018 LAURAEATenzin A Primary PHAN IVINODOB: [place] [id number] Insurance:HEALTH [id number] [address]Pypnsk Number: Repository [id number]: (330 [id number] [phone] (HP) Date:2373-07-35HC [address] [address]MN: 03/31/2018 Secondary NOT GIVENUNK [place] Insurance:SELF PAY [facility] Number: Effective Repository Date:2018-03-31
== END ==
PROVIDERS: Family Provider Family Medicine; PCP Family Medicine; Referring Provider Podiatrist; Visit Provider Podiatrist
DX: L60.0 Ingrowing nail (principal)
CPT/HCPCS: 87070; 87075; 87077; 87186; 87205; 87640

== ENCOUNTER → 2019-02-15 06:31 | Outpatient (CLI) | payer OTHER, SELFPAY ==
[2019-01-13 15:01] VITALS: BMI 35.9
--- NOTE | 2019-02-15 08:51 | STRESSREP ---
Stress Test Report Date: 02-15-19 Procedure: Exercise tolerance test/imaging study Indications: Shortness of breath/dyspnea on exertion Consent: Per the patient Procedure: The patient exercised on a Santosh protocol for 6 minutes completing Stage II achieving a peak heart rate of 162 bpm (94 % predicted maximal heart rate) with a peak blood pressure 166/70 mmHg and a peak MET capacity of 7 METs. The baseline ECG demonstrated on his bradycardia. The peak exercise ECG demonstrated no obvious ECG changes. There was an isolated PVC during recovery. The functional capacity was considered average. There was no complaint of chest discomfort during exercise or recovery. The examination was discontinued secondary to dyspnea and leg fatigue. Impression: 1. Technically adequate (percent predicted maximal heart rate greater than 85%) exercise tolerance test 2. Peak exercise ECG with no obvious ECG change 3. There was an isolated PVC during recovery 4. Nuclear images pending Myocardial perfusion imaging study: Technique: The patient was injected with 14.7 mCi of technetium 99m Cardiolite and subsequently rest SPECT Cardiolite nuclear imaging was obtained in the horizontal long, vertical long, and short axis views. The patient exercised on a Santosh protocol for 6 minutes completing Stage II achieving a peak heart rate of 162 bpm (94 % predicted maximal heart rate) with a peak blood pressure 166/70 mmHg and a peak MET capacity of 7 METs. The patient was injected with 44.4 mCi of technetium 99m Cardiolite and subsequently stress SPECT Cardiolite nuclear imaging was obtained in the horizontal long, vertical long, and short axis views. A gated Cardiolite study at peak stress was obtained. Interpretation: Rest and stress SPECT Cardiolite nuclear imaging status post realignment, normalization, and attenuation correction, demonstrates the appearance of relative uniform tracer uptake and myocardial perfusion appearing within normal limits. There is end systolic thickening and brightening. The gated Cardiolite study demonstrates myocardial thickening and inward wall motion. The reported LVEF is 74 %. Impression: 1. Rest and stress SPECT Cardiolite nuclear imaging demonstrate relative uniform tracer uptake and myocardial perfusion appearing within normal limits. 2. The gated Cardiolite study reports an LVEF of 74 %. This note was generated with Dine[employer]asm software. It may contain incorrect words, spelling, and punctuation that were not noted in checking the note before signing.
== END ==
PROVIDERS: Family Provider Family Medicine; PCP Family Medicine; Referring Provider Internal Medicine Cardiovascular Disease; Visit Provider Internal Medicine Cardiovascular Disease
DX: R06.02 Shortness of breath (principal)
CPT/HCPCS: 78452; 93017; A9500; A4216

== ENCOUNTER → 2019-05-04 16:52 | Outpatient (CLI) | payer OTHER, SELFPAY ==
[2019-01-13 15:01] VITALS: BMI 35.9
--- NOTE | 2019-05-04 16:55 | RAD_ITS ---
STUDY: X-RAY - CERVICAL SPINE REASON FOR EXAM: Female, 48 years old. Neck pain, right shoulder and arm pain. TECHNIQUE: 5 view(s) of the cervical spine were obtained. COMPARISON: None FINDINGS: Normal anterior atlantoaxial articulation. Normal odontoid process. Normal cervical lordosis. There is multi-level endplate spondylosis. There is multi-level degenerative disc disease with multilevel disc space narrowing. Normal visualized intervertebral neuroforamina. The soft tissue structures are unremarkable. RAD/Cerv Spine 4 or 5 Views IMPRESSION: Moderate degenerative disc disease lower cervical spine. MRI would be useful. Electronically Signed: Gigi Swenson MD at 17:20 EDT Tel , Service support ,
== END ==
PROVIDERS: Family Provider Family Medicine; PCP Family Medicine; Referring Provider Family Medicine; Visit Provider Family Medicine
DX: M54.2 Cervicalgia (principal)
CPT/HCPCS: 72050

== ENCOUNTER → 2019-05-23 13:57 | Outpatient (CLI) | payer OTHER, SELFPAY ==
[2019-01-13 15:01] VITALS: BMI 35.9
--- NOTE | 2019-05-23 14:04 | MRI_ITS ---
STUDY: MRI CERVICAL SPINE WITHOUT CONTRAST REASON FOR EXAM: Female, 48 years old. Right shoulder pain and finger numbness TECHNIQUE: Standardized fat and water weighted pulse sequences were obtained in the sagittal and axial planes. COMPARISON: Cervical spine on May 04, 2019 FINDINGS: Normal foramen magnum and brainstem-cervical cord junction. Normal craniovertebral junction. Normal anterior atlantoaxial articulation. Normal odontoid process. Decreased cervical lordosis. Normal vertebral bodies and posterior osseous elements. C2-3: Normal endplates. Normal disc height, signal and morphology. Normal central canal and intervertebral neural foramina. C3-4: Normal endplates. Normal disc height, signal and morphology. Normal central canal and intervertebral neural foramina. C4-5: Narrowed disc space and endplate spurring. Minor bulging disc osteophyte complex. Mild narrowing the central canal. Severe bilateral neuroforaminal stenosis secondary to bony hypertrophy. C5-6: Disc space and endplate spurring. Mild bulging disc osteophyte complex with associated central/right paracentral disc protrusion and mild narrowing the central canal and compression upon the cord to the right of the midline. Severe right neuroforaminal stenosis and mild to moderate narrowing on the left secondary to bony hypertrophy C6-7: Narrowed disc space with endplate spurring and degenerative endplate changes. Minor bulging disc osteophyte complex. Normal central canal. Moderate right neuroforaminal stenosis and mild to moderate narrowing on the left secondary to bony hypertrophy C7-T1: Normal endplates. Normal disc height, signal and morphology. Normal central canal and intervertebral neural foramina. Normal cervical cord. Normal visualized soft tissue structures. No significant change since prior exam given differences in imaging techniques MRI/Spine Cervical (Routine) IMPRESSION: Moderate spondylosis and multilevel spinal stenosis most severe at C5-6 with associated cord compression and severe neuroforaminal stenosis. Other findings as above Electronically Signed: Román Mireles MD at 16:04 EDT , Service support ,
== END ==
PROVIDERS: Family Provider Family Medicine; PCP Family Medicine; Referring Provider Family Medicine; Visit Provider Family Medicine
DX: S46.811A Strain of other muscles, fascia and tendons at shoulder and upper arm level, right arm, initial encounter (principal)
CPT/HCPCS: 72141

== ENCOUNTER 2019-06-01 16:00 | Outpatient (RCR) | payer OTHER, SELFPAY ==
[2019-01-13 15:01] VITALS: BMI 35.9
--- NOTE | 2019-05-11 14:00 | HP.PTEVAL_ITS ---
Patient's Visit Information KRISTI MEDRANO is a 48 year old F referred to Physical Therapy by Conner Carpio MD with a diagnosis of R arm pain, cervical pain, cervical DDD. Date of Evaluation: 05/06/19 Physical Therapist: Darci Nair DPT - Visit Plan Frequency: 2x /Week Duration: 4 Weeks Plan: Start with gentle retraction, trigger point release, modalities as needed. Progress postural control, further retraction once symptoms have strated to alleviate. Pt. is in a lot of pain this date and did not present with a directional preference. May warrant MRI if not progressing. - Subjective Findings: Pt. is here today for her initial evaluation with diagnosis of R arm pain, cervical DDD. Pt. reports having radiating pain down her R arm to her thumb and index finger. Pt. has numbness along came region. Pt. reports having pain for ~10 days without any mechanism of injury. She has had pain in her neck and R amr previously, but not this intense. Pt. reports unbale to get comfortable in any position and is now having to sleep semi reclined in chair. Pt. reprots inability to complete work related activities seoncdary to increased pain. She did have an injection recently without reduction in symptoms. Pt. re ports having R UE weakness as well. Pt. has had an xray- showing DDD in lower cervical spine. Pt. is hopeful to reduce symptoms in order to get back to all recreational/work activities wtihout limitations. - Pain R UE Pain Intensity (Out of 10): 6 Pain Intensity Range: 3, 10 Cervical spine Pain Intensity (Out of 10): 4 Pain Intensity Range: 2, 8 - Objective POSTURE: PT. has FH posture, R arm in gaureded posture. Pt. had increased tho racic kyphosis as well. PALAPTION: Pt. has increased pain at R cervical erector spinea, R UT and R levator scapule. Hypomobility noted throughout cervical spine, increased pain in lower cervical with spring PA. NEURO: normal sensation, normal DTR of BUEs. ROM: cervical spine: normal throuhgout, except rectraction (mod loss increase NW), ext mod loss increase NW. B shoulders- normal throughout, except flexion abd on R side. (normal range, but increase in symptoms). MMT: Pt. has normal symmetrical strength of BUEs. cervical iso- normal throughout. - Special Tests C/S Radiculapathy - Right Upper limb tension test: Negative C/S Radiculapathy - Right Spurlings: Positive C/S Radiculapathy - Right Cervical distraction: Positive C/S Radiculapathy - Right Relief test: Negative C/S Radiculapathy - Valsalva: Negative Cervical Sitting: Protrusion - Mechanical Response: No effect Cervical Sitting: Protrusion - Symptoms During Testing: No effect Cervical Sitting: Protrusion - Symptoms After Testing: No effect Cervical Sitting: Retraction - Mechanical Response: No effect Cervical Sitting: Retraction - Symptoms During Testing: Increases Cervical Sitting: Retraction - Symptoms After Testing: Worse Cervical Sitting: Retraction-Extension - Mechanical Response: No effect Cerv Sitting: Retraction-Extension - Symptoms During Testing: Increases Cerv Sitting: Retraction-Extension - Symptoms After Testing: Worse Cervical Sitting: Sidebend Right - Mechanical Response: No effect Cervical Sitting: Sidebend Right - Symptoms During Testing: No effect Cervical Sitting: Sidebend Right - Symptoms After Testing: No effect Cervical Sitting: Sidebend Left - Mechanical Response: No effect Cervical Sitting: Sidebend Left - Symptoms During Testing: Increases Cervical Sitting: Sidebend Left - Symptoms After Testing: Worse Cervical Sitting: Rotation Right - Mechanical Response: No effect Cervical Sitting: Rotation Right - Symptoms During Testing: No effect Cervical Sitting: Rotation Right - Symptoms After Testing: No effect Cervical Sitting: Rotation Left - Mechanical Response: No effect Cervical Sitting: Rotation Left - Symptoms During Testing: No effect Cervical Sitting: Rotation Left - Symptoms After Testing: No effect Cervical Sitting: Flexion - Mechanical Response: No effect Cervical Sitting: Flexion - Symptoms During Testing: No effect Cervical Sitting: Flexion - Symptoms After Testing: No effect - Goals Goal 1:: Pt. to be I with HEP. Goal Time Frame: 4-6 Weeks Goal 2:: Pt. to have full cervical ROM without increase in symptoms. Goal Time Frame: 4-6 Weeks Goal 3:: Pt. have decreased N/T in RUE by 50%. Goal Time Frame: 4-6 Weeks Goal 4:: Pt. to sleep throughout the night without issues. Goal Time Frame: 4-6 Weeks Goal 5:: Pt. to demonstrate proper posture throughout therapy session. Goal Time Frame: 4-6 Weeks Goal 6:: Pt. to resume all work related activities without increase in symptoms. - Rehabilitation Potential Physical Therapy Diagnosis: Pt. has signs and symptoms consistent with R arm pain, cervical pain, cervical DDD. Pt. appears to have radiating pain down her R UE to thumb and 4trh finger. Pt. has numbness in same region. Pt. did not have a a directional preference this date, but symptoms are highly irritable. Pt. would benefit from PT to increase ROM, but may need MRI to rule out more sinister pathology. Rehabilitation Potential: Fair - Anticipated Interventions Patient/Client Instruction: Educate patient on: Condition, Plan of Care, Risk Factors, Benefits of Fitness Program For the Purpose of:: To foster healthy habits, To improve decision making, To facilitate caregiver knowledge, To improve self management, To prevent re- injury, To improve ability to perform tasks related to life management Therapeutic Exercise to Include: Strength training, Power training, Body mec hanics, Postural training, Flexibilty training, Passive ROM, Active ROM, Araseli Exercises, Scapular Strength/Stabilization For the Purpose of:: To decrease pain, To decrease swelling/inflammation, To increase ROM, To improve nutrient delivery to tissue, To increase oxygenation perfusion, To improve health of tissue, To decrease soft tissue restriction, To increase flexibility/ROM Manual Therapy Techniques to Include: Mobilization, Functional dry needling, Soft tissue mobilization For the Purpose of:: To decrease pain, To decrease swelling/inflammation, To increase ROM, To improve nutrient delivery to tissue, To increase oxygenation perfusion, To improve muscle performance and motor function TENS: Yes IF ES: Yes Cryotherapy (ice pack, ice massage): Yes Ultrasound (thermal/non thermal): Yes For the Purpose of:: To decrease pain, To decrease swelling/inflammation, To increase ROM, To improve nutrient delivery to tissue, To increase oxygenation perfusion, To improve muscle performance and motor function Thank you for the opportunity to evaluate your patient. For Medicare and Medicare HMO plans, please review the plan of care and approve it. It will need to be FAXED BACK to us at [phone] for Medicare purposes. For Medicare only, by signing this I certify the plan of care. Please let me know if there are questions or concerns regarding this plan of care. Physician Signature: Date:
--- NOTE | 2019-11-17 07:38 | HP.PTDCNRP_ITS ---
HP - Discharge Summary (1) - Patient Information KRISTI MEDRANO was seen in my office for initial evaluation on 05/06/19. The following Plan of Care was established for this patient: Initial Frequency: 2x /Week Initial Duration: 4 Weeks - Anticipated Interventions Patient/Client Instruction: Educate patient on: Condition, Plan of Care, Risk Factors, Benefits of Fitness Program For the Purpose of:: To foster healthy habits, To improve decision making, To facilitate caregiver knowledge, To improve self management, To prevent re- injury, To improve ability to perform tasks related to life management Therapeutic Exercise to Include: Strength training, Power training, Body mechanics, Postural training, Flexibilty training, Passive ROM, Active ROM, Araseli Exercises, Scapular Strength/Stabilization For the Purpose of:: To decrease pain, To decrease swelling/inflammation, To increase ROM, To improve nutrient delivery to tissue, To increase oxygenation perfusion, To improve health of tissue, To decrease soft tissue restriction, To increase flexibility/ROM Manual Therapy Techniques to Include: Mobilization, Functional dry needling, So ft tissue mobilization For the Purpose of:: To decrease pain, To decrease swelling/inflammation, To increase ROM, To improve nutrient delivery to tissue, To increase oxygenation perfusion, To improve muscle performance and motor function TENS: Yes IF ES: Yes Cryotherapy (ice pack, ice massage): Yes Ultrasound (thermal/non thermal): Yes For the Purpose of:: To decrease pain, To decrease swelling/inflammation, To increase ROM, To improve nutrient delivery to tissue, To increase oxygenation perfusion, To improve muscle performance and motor function This patient was last seen in our office 05/11/19. Pertinent comments regarding their Physical therapy will appear below: Pt. was seen for her radiating cervical pain. Pt. was seen for 2 visits and has not been seen in several months. Pt. will be DC from PT at this point in time. At this point I will be discontinuing this patient from physical therapy. I would be happy to see this patient again in the future if found appropriate by the physician. Thank you! Darci Nair, MARIELY
== END 2019-06-01 19:00 | disposition home or self-care (01) ==
LOC: PT 16:00
PROVIDERS: Family Provider Family Medicine; PCP Family Medicine; Referring Provider Family Medicine; Visit Provider Family Medicine
DX: M50.30 Other cervical disc degeneration, unspecified cervical region (principal)
CPT/HCPCS: 97014; 97035; 97161; G0283

== ENCOUNTER → 2019-06-02 15:49 | Outpatient (CLI) | payer OTHER, SELFPAY ==
[2019-01-13 15:01] VITALS: BMI 35.9
--- NOTE | 2019-06-02 15:53 | RAD_ITS ---
STUDY: X-RAY - CERVICAL SPINE REASON FOR EXAM: Female, 48 years old. Disc herniation. TECHNIQUE: Frontal, odontoid, and lateral neutral, flexion, and extension view(s) of the cervical spine were obtained. COMPARISON: MRI May 23, 2019 FINDINGS: Normal anterior atlantoaxial articulation. Normal odontoid process. There is straightening of the normal cervical lordosis in the neutral position. There is grade 1 retrolisthesis at C2-3. There is grade 1 retrolisthesis at C2-3 and C3-4 in extension. There is reduction in flexion. There is no acute fracture. There is C5-6 and C6-7 disc space narrowing and endplate spondylosis. The soft tissue structures are unremarkable. RAD/Cerv Spine 2 or 3 Views IMPRESSION: Cervical spondylosis. Electronically Signed: Wilner Hale MD at 9:26 EDT , Service support ,
== END ==
PROVIDERS: Family Provider Family Medicine; PCP Family Medicine
DX: M50.222 Other cervical disc displacement at C5-C6 level (principal)
CPT/HCPCS: 72040

== ENCOUNTER → 2019-09-01 08:47 | Outpatient (CLI) | payer OTHER, SELFPAY ==
[2019-01-13 15:01] VITALS: BMI 35.9
[2019-09-01 10:40] LABS: Hematocrit 43.3 % (37-47); Mean Corp Hgb Conc 32.3 g/dL (32-36); Mean Corpuscular Hgb 31.5 pg (27.0-32.0); Mean Corpuscular Volume 97.3 fL (81-99); Mean Platelet Vol. 10.7 fl (6.2-12.0); Platelet Count 323 K/mm3 (150-450); RBC Distribution Width CV 12.5 % (11.6-14.6); RBC Distribution Width SD 44.5 fl (35.1-43.9); Red Blood Count 4.45 M/mm3 (4.2-5.4); White Blood Count 7.1 K/mm3 (4.4-11.0)
[2019-09-01 11:27] LABS: AST(SGOT) 16 U/L (15-37); Alanine Aminotransfer ALT/SGPT 24 U/L (13-56); Albumin, Serum 3.6 g/dL (3.2-5.0); Alkaline Phosphatase 76 U/L (45-117); Anion Gap 8 (5-15); BUN 12 mg/dL (7-18); BUN/Creat Ratio 14.2 RATIO (10-20); Calcium,Total 9.1 mg/dL (8.5-10.1); Chloride 107 mmol/L (98-107); Creatinine, Serum 0.84 mg/dL (0.55-1.02); EST Glomerular Filtration Rate 76 mL/min (>60); Est Glom Filt Rate - Afr Amer 92 mL/min (>60); Ferritin 132 ng/mL (8-252); Globulin 3.7 g/dL (2.2-4.2); Glucose 97 mg/dL (74-106); Iron 124 ug/dL (50-170); Protein, Total 7.3 g/dL (6.4-8.2); Sodium Level 141 mmol/L (136-145); Thyroid Stim Hormone (TSH) 5.79 uIU/mL (0.358-3.74)
[2019-09-01 11:29] LABS: Vitamin B12 1074 pg/mL (211-911); Vitamin D,25 Hydroxy 46.1 ng/mL (29.95-100.01)
== END ==
PROVIDERS: Family Provider Family Medicine; PCP Family Medicine; Referring Provider Family Medicine; Visit Provider Family Medicine
DX: D64.9 Anemia, unspecified (principal); E78.5 Hyperlipidemia, unspecified; E03.9 Hypothyroidism, unspecified; E55.9 Vitamin D deficiency, unspecified
CPT/HCPCS: 36415; 80053; 82306; 82607; 82728; 83540; 84443; 85027

== ENCOUNTER → 2019-12-01 16:15 | Outpatient (CLI) | payer OTHER, SELFPAY ==
[2019-01-13 15:01] VITALS: BMI 35.9
[2019-12-01 18:02] LABS: Thyroid Stim Hormone (TSH) 4.25 uIU/mL (0.358-3.74)
== END ==
PROVIDERS: Family Provider Family Medicine; PCP Family Medicine; Referring Provider Family Medicine; Visit Provider Family Medicine
DX: E03.9 Hypothyroidism, unspecified (principal)
CPT/HCPCS: 36415; 84439; 84443

== ENCOUNTER → 2020-02-01 16:31 | Outpatient (CLI) | payer OTHER, SELFPAY ==
[2019-01-13 15:01] VITALS: BMI 35.9
[2020-02-01 18:41] LABS: Thyroid Stim Hormone (TSH) 2.22 uIU/mL (0.358-3.74)
== END ==
PROVIDERS: PCP Family Medicine; Referring Provider Family Medicine; Visit Provider Family Medicine
DX: E03.9 Hypothyroidism, unspecified (principal)
CPT/HCPCS: 36415; 84443

== ENCOUNTER → 2020-05-02 09:37 | Outpatient (CLI) | payer OTHER, SELFPAY ==
[2020-03-02 13:16] VITALS: BMI 36.2
--- NOTE | 2020-05-02 09:41 | RAD_ITS ---
STUDY: X-RAY - LUMBAR SPINE REASON FOR EXAM: Female, 49 years old. Low back pain TECHNIQUE: 3 view(s) of the lumbar spine were obtained. COMPARISON: Comparison is made with prior examination dated November 27, 2015. FINDINGS: Normal lumbar lordosis. There is no substantial scoliosis. There is a normal alignment of the vertebrae. Marked degree of disc space narrowing and spondylosis at the L5-S1 level. Phleboliths are seen in the pelvis more prominent on the left side. RAD/Lumbar Spine 2 or 3 Views IMPRESSION: Degenerative changes of the spine, as detailed above. This is unchanged. Electronically Signed: Bebeto Booker, at 10:54 EDT , Service support ,
== END ==
PROVIDERS: PCP Family Medicine; Referring Provider Anesthesiology Pain Medicine; Visit Provider Anesthesiology Pain Medicine
DX: M54.5 Low back pain (principal)
CPT/HCPCS: 72100

== ENCOUNTER → 2020-08-20 16:43 | Outpatient (CLI) | payer OTHER, SELFPAY ==
[2020-03-02 13:16] VITALS: BMI 36.2
== END ==
PROVIDERS: PCP Family Medicine; Visit Provider Family Medicine
DX: Z20.828 Contact with and (suspected) exposure to other viral communicable diseases (principal)
CPT/HCPCS: 87635; U0003

== ENCOUNTER → 2020-10-08 16:00 | Outpatient (CLI) | payer OTHER, SELFPAY ==
[2020-03-02 13:16] VITALS: BMI 36.2
== END ==
PROVIDERS: PCP Family Medicine; Visit Provider Family Medicine
DX: Z20.828 Contact with and (suspected) exposure to other viral communicable diseases (principal)
CPT/HCPCS: 87635; U0003

== ENCOUNTER → 2020-11-06 15:44 | Outpatient (CLI) | payer OTHER, SELFPAY ==
[2020-03-02 13:16] VITALS: BMI 36.2
--- NOTE | 2020-11-06 15:50 | RAD_ITS ---
STUDY: X-RAY - PELVIS AND LEFT HIP REASON FOR EXAM: Female, 49 years old. left hip pain that radiates into groin TECHNIQUE: 3 views of the pelvis and hip. COMPARISON: None. FINDINGS: There is a non-specific bowel gas pattern. Normal visualized soft tissue structures. Normal bilateral iliac wings, sacroiliac joints and visualized sacrum. Normal bilateral superior and inferior pubic rami. Normal pubic symphysis. Normal bilateral ischial tuberosities. Normal visualized femoral head. Normal acetabulum. Normal hip joint. RAD/HIP, UNI W/ Pelvis 2-3 Views IMPRESSION: Normal x-ray examination of the pelvis and hip. Electronically Signed: Bishop Gabriel MD at 23:29 EST , Service support ,
== END ==
PROVIDERS: PCP Family Medicine; Referring Provider Family Medicine; Visit Provider Family Medicine
DX: M25.552 Pain in left hip (principal)
CPT/HCPCS: 73502

== ENCOUNTER → 2020-11-09 09:13 | Outpatient (CLI) | payer OTHER, SELFPAY ==
[2020-03-02 13:16] VITALS: BMI 36.2
[2020-11-09 10:09] LABS: Hematocrit 41.8 % (37-47); Hemoglobin 13.4 g/dL (12.0-15.0); Mean Corp Hgb Conc 32.1 g/dL (32-36); Mean Corpuscular Hgb 31.1 pg (27.0-32.0); Mean Platelet Vol. 10.6 fl (6.2-12.0); Platelet Count 348 K/mm3 (150-450); RBC Distribution Width CV 12.8 % (11.6-14.6); RBC Distribution Width SD 45.9 fl (35.1-43.9); Red Blood Count 4.31 M/mm3 (4.2-5.4); White Blood Count 10.4 K/mm3 (4.4-11.0)
[2020-11-09 10:40] LABS: Vitamin B12 754 pg/mL (211-911); Vitamin D,25 Hydroxy 44.3 ng/mL
[2020-11-09 10:56] LABS: Anion Gap 6 (5-15); BUN 22 mg/dL (7-18); BUN/Creat Ratio 27.3 RATIO (10-20); Chloride 105 mmol/L (98-107); Cholesterol 173 mg/dL (200); Creatinine, Serum 0.81 mg/dL (0.55-1.02); EST Glomerular Filtration Rate 80 mL/min (>60); Est Glom Filt Rate - Afr Amer 97 mL/min (>60); Glucose 85 mg/dL (74-106); High Density Lipoprotein 63 mg/dL; Sodium Level 138 mmol/L (136-145); Thyroid Stim Hormone (TSH) 5.74 uIU/mL (0.358-3.74); Triglycerides 62 mg/dL; Very Low Density Lipoprotein 12 mg/dL (5-40)
== END ==
PROVIDERS: PCP Family Medicine; Referring Provider Family Medicine; Visit Provider Family Medicine
DX: R53.83 Other fatigue (principal); E03.9 Hypothyroidism, unspecified; Z13.220 Encounter for screening for lipoid disorders
CPT/HCPCS: 36415; 80048; 80061; 82306; 82607; 84443; 85027

== ENCOUNTER → 2020-11-29 14:01 | Outpatient (CLI) | payer OTHER, SELFPAY ==
[2020-03-02 13:16] VITALS: BMI 36.2
== END ==
PROVIDERS: PCP Family Medicine; Referring Provider Family Medicine; Visit Provider Family Medicine
DX: Z20.822 Contact with and (suspected) exposure to COVID-19 (principal)
CPT/HCPCS: 87635; U0005; U0003

== ENCOUNTER 2021-02-05 06:52 | Emergency (ER) | payer OTHER, SELFPAY ==
[2020-03-02 13:16] VITALS: BMI 36.2
[2021-02-05 06:53] VITALS: BP 118/59; PULSE 68; RESP 16; TEMP 36.8; O2SAT 97; BMI 38.4
[2021-02-05] MEDS: Ondansetron 4 MG/2 ML Vial IV (07:12)
[2021-02-05] MEDS: morphine 8 MG/ML Syringe IV (07:15)
--- NOTE | 2021-02-05 07:24 | ED.VIS.BACK ---
History of Present Illness Chief Complaint: Back Informant: Patient, Significant Other Onset: Month(s) - Chronic back pain that up abruptly got worse. Context: Sudden Onset Chronic pain exacerbated by: History of degenerative disc disease and problems with disks. Injury: - - He denies any injury. Timing: Continuous Quality: Dull, Aching Location: Lumbar Current Severity: Severe Maximum Severity: Severe Worsened by: improves with: Movement, Ambulation, Bending Relieved by: Nothing Associated Symptoms: - - She denies bowel bladder dysfunction. She denies saddle paresthesia or anesthesia. She denies radicular pain. She denies fever or chills. She has no risk factors for epidural abscess. She has not had a recent epidural injection. She is scheduled for an epidural injection. Her last injection w Narrative: Patient 50-year-old obese woman who presents with acute exacerbation of low back pain. She has no red flags for epidural abscess. Her pain is not in a radicular pattern. Patient pain is exacerbated with movement. Patient did not take anything prior to presentation. She denies direct trauma. She denies any bruising or rash. Prior similar symptoms: Yes, With Prior Back Pain Recent Illness/Hospitalization: No - Past Medical History (1) Nonrheumatic mitral (valve) prolapse Status: Acute (2) Menorrhagia Status: Chronic (3) Mixed hyperlipidemia Status: Chronic Past Medical History - Allergies and Home Meds Allergies/Adverse Reactions: Allergies sertraline [From Zoloft] Allergy (Severe, Verified 02/05/21 06:55) nausea, vomiting venom-honey bee [bee venom (honey bee)] Allergy (Severe, Verified 02/05/21 06:55) Swelling bupropion [From Wellbutrin] Adverse Reaction (Severe, Verified 02/05/21 06:55) nightmares citalopram [From Celexa] Adverse Reaction (Severe, Verified 02/05/21 06:55) sexual side effect Primary Care Physician: Conner Carpio MD [Primary Care Provider] - Prior records reviewed: Yes Surgical History: noncontributory Lives: Spouse/ Significant Other Smoking Status: Never smoker Alcohol: None Drugs: None - Family History Maternal Family History: Family History (Last Reviewed 01/13/19 @ 14:54 by Adriane Wniston) Sister Hypertension Myocardial infarction Sister Heart disease Hypertension Grandmother CVA (cerebral vascular accident) Heart disease Brother Hypertension Father CVA (cerebral vascular accident) Sister Hypertension Sister Hypertension Mother Heart disease Family History: Reports: No pertinent history Paternal Family History: Family History (Last Reviewed 01/13/19 @ 14:54 by Adriane Winston) Sister Hypertension Myocardial infarction Sister Heart disease Hypertension Grandmother CVA (cerebral vascular accident) Heart disease Brother Hypertension Father CVA (cerebral vascular accident) Sister Hypertension Sister Hypertension Mother Heart disease Family History: Reports: No pertinent history Review of Systems General: Denies: Chills, Fever, Malaise, Subjective, Sweats ENT: Denies: Rhinorrhea, Sore throat Cardiovascular: Denies: Chest pain, Palpitations Respiratory: Denies: Dyspnea, Cough, Dyspnea on exertion Gastrointestinal: Denies: Abdominal pain, Nausea, Vomiting, Diarrhea, Melena, Hematochezia Genitourinary: Denies: Dysuria, Hematuria, Frequency Musculoskeletal: Reports: Back pain. Denies: Myalgias, Arthralgias, Neck pain, Swelling, Extremity Pain Skin: Denies: Rash, Wounds Neurological: Denies: Headache, Weakness, Parasthesia, Numbness Psych: Reports: Depression, Anxiety Endocrine: Denies: Polyuria, Polydipsia Hematologic: Denies: Easy bruising, Easy bleeding Physical Exam Vital Signs/Narrative: Vital Signs Temp Pulse Resp BP Pulse Ox 02/05/21 06:53 98.2 F 68 16 118/59 L 97 Inital Vital Signs reviewed: Yes General: Well nourished, Well developed, Obese Head: Normocephalic, Atraumatic Eyes: Perrl, EOMI. Negative for: Pale conjunctiva, Scleral icterus ENT: Moist mucous membranes, No rhinorrhea Neck: Supple, Nontender, No lymphadenopathy, No JVD Cardiovascular: Regular rate, Regular rhythm, No murmurs, Normal S1, Normal S2 Respiratory: No distress, CTA bilaterally, Chest nontender Abdomen: Soft, Nontender, Nondistended, Normal bowel sounds. Negative for: Hepatomegaly, Splenomegaly, Bernal's sign Rectal: Deferred, - - Perianal sensation. Back: Normal Inspection, Nontender, Paraspinal Tenderness - Right lower paralumbar region above the superior posterior iliac crest., Negative SLR - Right, Negative SLR - Left. Negative for: Surgical Scar, Well-Healed, Spinal tenderness, CVA tenderness, Positive SLR - Right, Positive SLR - Left Extremeties: Nontender, No edema, Strong Pulses, Symmetric. Negative for: Tenderness, Edema Skin: Normal color, No rash, No Trauma. Negative for: Cyanosis, Diaphoresis, Jaundice Neuro: Alert, Oriented, Normal Strength - Over 5 strength with plantar dorsiflexion. EHL intact. Normal sensation over L3, L4 and L5 dermatome., Normal Sensation, Normal DTR - Deep tendon reflex 2+ the patella and ankle and symmetric. Psychological: Depressed Diagnostic/Tx/Re-eval - Medical Decision Making Presents with atraumatic exacerbation of back pain. Will review prior MRI. Based on pain with minimal movement this is consistent with a musculoskeletal etiology. She has no radicular pain and negative straight leg and crossover test. There is no neurologic deficit appreciated on examination. Patient's prior records were reviewed. Going back to 2013 there is no images of the LS spine other than plain x-rays. There is an MRI of the cervical spine which reveals multiple levels of disc disease. There is also spinal stenosis with mild impingement of spinal cord. Patient was reevaluated at 0755. She reports significant improving the pain presently is a 5. Plan is additional dose of morphine and discharged home. states he will contact Dr. Pugh. Patient was informed she has significant degenerative disease. The degenerative disease will only get worse. She was encouraged to lose weight which has contributed to her degenerative disc disease. She was explained the physics of weight with relationship to back pain. ED Disposition - Plan for ED Patient: Disposition: Home or Assisted Living Diagnosis: Acute exacerbation of chronic low back pain Instructions: ED Back Pain (Acute or Chronic) Referrals: Conner Carpio MD [Primary Care Provider] -
[2021-02-05] MEDS: Morphine 4 MG/ML Syringe IV (08:12)
[2021-02-05 08:46] VITALS: BP 119/57; PULSE 62; RESP 15; O2SAT 99
== END 2021-02-05 08:48 | disposition home or self-care (01) ==
PROVIDERS: Emergency Provider Emergency Medicine; PCP Family Medicine
DX: M54.5 Low back pain (principal); G89.29 Other chronic pain; E66.9 Obesity, unspecified
CPT/HCPCS: 96374; 96375; 96376; 99283; A4216; J2405

== ENCOUNTER 2021-03-03 10:02 | Emergency (ER) | payer OTHER, SELFPAY ==
[2021-03-03 10:03] VITALS: BP 149/86; PULSE 72; RESP 18; TEMP 37.1; O2SAT 96; BMI 38.2
--- NOTE | 2021-03-03 10:34 | ED.VIS.GEN ---
History of Present Illness Chief Complaint: Back Informant: Patient, Significant Other Onset: Yesterday Context: Gradual Onset - Without any particular injury, movement, lifting, or obvious trigger Timing: Continuous Quality: Pain, burning Location: Neck down into rhomboids and back of head Current Severity: Severe Maximum Severity: Severe Worsened by: Movement Relieved by: Nothing Associated Symptoms: Denies weakness, numbness upper extremities or bowel or bladder dysfunction Narrative: Patient states she has a history of chronic pain in her neck and lumbosacral back along with radiculopathies in both regions. For this, she gets periodic epidural steroid injections in both regions by her pain specialist. The pain she is having now is typical of a flareup of her chronic neck pain and in addition, this exact pain has been temporarily relieved by epidural steroid injections in the past. She denies anything unusual, stating that if it was not the weekend she would have gone straight to her pain specialist Dr. Pugh. She does not like to take pain medicine if she can avoid it, she took a diclofenac yesterday but it did not help and that is all she had at home as far as prescription pain medications. She was here relatively recently for similar problem with exacerbation in her low back and received a shot of morphine which did help significantly and then she saw Dr. Pugh and had an injection now her low back feels relatively good and stable. 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 (2) Nonrheumatic mitral (valve) prolapse Status: Chronic (3) Mixed hyperlipidemia Status: Chronic Past Medical History - Allergies and Home Meds Allergies/Adverse Reactions: Allergies sertraline [From Zoloft] Allergy (Severe, Verified 03/03/21 10:18) nausea, vomiting venom-honey bee [bee venom (honey bee)] Allergy (Severe, Verified 03/03/21 10:18) Swelling bupropion [From Wellbutrin] Adverse Reaction (Severe, Verified 03/03/21 10:18) nightmares citalopram [From Celexa] Adverse Reaction (Severe, Verified 03/03/21 10:18) sexual side effect Primary Care Physician: Conner Carpio MD [Primary Care Provider] - Lives: Spouse/ Significant Other Smoking Status: Never smoker - Family History Maternal Family History: Family History (Last Reviewed 01/13/19 @ 14:54 by Adriane Winston) Sister Hypertension Myocardial infarction Sister Heart disease Hypertension Grandmother CVA (cerebral vascular accident) Heart disease Brother Hypertension Father CVA (cerebral vascular accident) Sister Hypertension Sister Hypertension Mother Heart disease Family History: Reports: No pertinent history Paternal Family History: Family History (Last Reviewed 01/13/19 @ 14:54 by Adriane Winston) Sister Hypertension Myocardial infarction Sister Heart disease Hypertension Grandmother CVA (cerebral vascular accident) Heart disease Brother Hypertension Father CVA (cerebral vascular accident) Sister Hypertension Sister Hypertension Mother Heart disease Family History: Reports: No pertinent history Review of Systems General: Denies: Chills, Fever, Sweats Cardiovascular: Denies: Chest pain, Palpitations Respiratory: Denies: Dyspnea, Cough Gastrointestinal: Denies: Abdominal pain, Vomiting Musculoskeletal: Reports: Neck pain, Back pain. Denies: Swelling, Extremity Pain Neurological: Reports: Headache. Denies: Weakness, Parasthesia, Numbness Physical Exam Vital Signs/Narrative: Vital Signs Temp Pulse Resp BP Pulse Ox 03/03/21 10:03 98.7 F 72 18 149/86 H 96 Inital Vital Signs reviewed: Yes General: Well nourished, Well developed, Acute Distress - Pain. Lying left lateral decub, sobbing and moaning. Attempts to converse, follows commands, otherwise appropriate. Head: Normocephalic, Atraumatic Eyes: Perrl, EOMI Neck: Supple, No lymphadenopathy, - - Diffusely tender. Full range of motion. Respiratory: No distress Skin: Normal color, No rash, No Trauma Neurological: Alert, Oriented x3, Cranial nerves II-XII grossly intact, Normal Strength, Normal Sensation, Normal Gait Psychological: Tearful Diagnostic/Tx/Re-eval - Medical Decision Making Patient confirms that she is having an exacerbation of chronic symptoms. She does not have any objective weakness in her arms. She was given dose of morphine, Toradol 30 IM, prophylactic Zofran, and discharged stable condition with her . ED Disposition - Plan for ED Patient: Disposition: Home or Assisted Living Diagnosis: Chronic neck pain, Acute neck pain Instructions: ED Back and Neck Pain, General Referrals: Conner Carpio MD [Primary Care Provider] - Román Miles MD [STAFF PHYSICIAN] - As soon as possible
[2021-03-03] MEDS: Ondansetron ODT 4 MG Tablet 8 MG PO (10:42)
[2021-03-03] MEDS: Ketorolac 30 MG/ML Syringe IM (10:43)
[2021-03-03] MEDS: Morphine 4 MG/ML Syringe IM (10:45)
[2021-03-03 11:11] VITALS: BP 113/76; PULSE 56; RESP 15
== END 2021-03-03 11:12 | disposition home or self-care (01) ==
LOC: ED 10:45
PROVIDERS: Emergency Provider Emergency Medicine; PCP Family Medicine
DX: M54.2 Cervicalgia (principal); G89.29 Other chronic pain; E78.2 Mixed hyperlipidemia
CPT/HCPCS: 96372; 99282

== ENCOUNTER → 2021-03-13 10:46 | Outpatient (CLI) | payer OTHER, SELFPAY ==
[2021-03-03 10:03] VITALS: BMI 38.2
--- NOTE | 2021-03-13 10:49 | RAD_ITS ---
STUDY: X-RAY - CERVICAL SPINE REASON FOR EXAM: Female, 50 years old. LYMPHADENOPATHY TECHNIQUE: view(s) of the cervical spine were obtained. COMPARISON: None FINDINGS: Normal anterior atlantoaxial articulation. Normal odontoid process. Normal cervical lordosis. There is multi-level endplate spondylosis. There is multi-level degenerative disc disease with multilevel disc space narrowing. Normal visualized intervertebral neuroforamina. The soft tissue structures are unremarkable. RAD/Neck for Soft Tissue IMPRESSION: Multilevel disc space narrowing and spondylosis. Electronically Signed: Bebeto Booker MD at 15:52 EDT , Service support ,
[2021-03-13 12:27] LABS: Erythrocyte Sedimentation Rate 5 mm/hr (0-30)
[2021-03-13 12:30] LABS: Absolute Lymphocyte Count 1.96 X10^3/uL (0.83-4.51); Absolute Neutrophil Count 4.3 X10^3/uL (2.0-7.7); Basophil# 0.06 X10^3/uL; Basophil% 0.8 % (0-1); Eosinophil# 0.13 X10^3/uL; Eosinophils% 1.8 % (0-5); Hematocrit 44.4 % (37-47); Hemoglobin 13.6 g/dL (12.0-15.0); Lymphocyte # 1.96 X10^3/ul (0.83-4.51); Lymphocyte % 27.5 % (19-41); Mean Corp Hgb Conc 30.6 g/dL (32-36); Mean Corpuscular Hgb 30.3 pg (27.0-32.0); Mean Corpuscular Volume 98.9 fL (81-99); Mean Platelet Vol. 10.2 fl (6.2-12.0); Monocyte# 0.64 X10^3/uL; NRBC Flagged by Analyzer 0 % (0-5); Neutrophil % 60.3 % (47-70); Platelet Count 428 K/mm3 (150-450); RBC Distribution Width CV 12.6 % (11.6-14.6); Red Blood Count 4.49 M/mm3 (4.2-5.4); White Blood Count 7.1 K/mm3 (4.4-11.0)
[2021-03-13 12:53] LABS: CRP 5.11 mg/L (0.0-3.0); T4 Free Direct 1.07 ng/dL (0.76-1.46)
== END ==
PROVIDERS: PCP Family Medicine; Referring Provider Family Medicine; Visit Provider Family Medicine
DX: R59.0 Localized enlarged lymph nodes (principal); M51.36 Other intervertebral disc degeneration, lumbar region; E03.9 Hypothyroidism, unspecified
CPT/HCPCS: 36415; 70360; 84439; 84443; 85025; 85652; 86140

== ENCOUNTER → 2021-03-29 08:53 | Outpatient (CLI) | payer OTHER, SELFPAY ==
[2021-03-03 10:03] VITALS: BMI 38.2
--- NOTE | 2021-03-29 08:58 | US_ITS ---
HISTORY: ENLARGED LYMPH NODES EXAMINATION: US Thyroid (eg thyroid, parathyroid, parotid) TECHNIQUE: Felix scale and color doppler imaging was performed of the thyroid gland. COMPARISON: None FINDINGS: RIGHT THYROID LOBE: 5.4 x 1.8 x 1.4 cm. Heterogenous echotexture with normal vascularity. Nodules: No thyroid nodules are present. LEFT THYROID LOBE: 5.0 x 1.6 x 1.4 cm. Heterogenous echotexture with normal vascularity. Nodules: Single solid nodule in the lower pole, 10 x 10 x 6 mm, with smooth margins, hypoechoic, wider than tall without internal calcification. TR 4, moderately suspicious. ISTHMUS: 5 mm. Nodules: No thyroid nodules are present. Bilateral lymph nodes identified, largest on the right and 0.3 cm, on the left 1.6 cm, normal morphology. US/Thyroid IMPRESSION: Heterogenous thyroid with single moderately suspicious 10 mm solid nodule inferior left lobe, TI-RADS Category 4, moderately suspicious. Recommend routine annual follow-up. ACR TI-RADS recommendations (J Am Carlos Radiol 2017): Based on composition, echogenicity, shape, margin, and echogenic foci. TR5 (=7 points) - Highly suspicious FNA if = 1cm, follow up if 0.5-0.9 cm every year for 5 years TR4 (4 - 6 points) - Moderately suspicious FNA if = 1.5cm, follow - up if 1-1.4 cm in 1, 2, 3 and 5 years TR3 (3 points) - Mildly suspicious FNA if = 2.5cm, follow - up if 1.5-2.4 cm in 1, 3 and 5 years TR2 (2 points) - Not suspicious No FNA or follow-up TR1 (0 points) - Benign No FNA or follow-up -Biopsy no more than 2 nodules which meet FNA criteria. -Follow/report no more than 4 nodules with highest TR point totals. -Follow-up can stop at 5 years if there is no change in size. -If nodule TR level increases on follow-up the next sonogram should be done in one year. at 2344 Reported and signed by: Jian Corley MD Electronically Signed: Jian Corley MD at 23:43 EDT Tel , Service support ,
== END ==
PROVIDERS: PCP Family Medicine; Referring Provider Family Medicine; Visit Provider Family Medicine
DX: R59.0 Localized enlarged lymph nodes (principal)
CPT/HCPCS: 76536

== ENCOUNTER → 2021-05-15 11:45 | Outpatient (CLI) | payer OTHER, SELFPAY ==
--- NOTE | 2021-05-15 11:48 | BI_ITS ---
MAMMOGRAPHY - BILATERAL SCREENING 3-D TOMOSYNTHESIS REASON FOR EXAM: Female, 50 years old. SCREENING PERTINENT HISTORY: No significant family history. TECHNIQUE: 2-D mammograms and 3-D Tomosynthesis of the breast (s) were performed. CAD was performed. COMPARISON: 07/14/2018 FINDINGS: The breast composition is of scattered fibroglandular tissue. However: There is small irregular density seen on the craniocaudal view lateral aspect of the left breast that needs further assessment by ultrasound. Otherwise no obvious spiculated lesion, microcalcifications, skin thickening or nipple retraction. There are multiple benign looking lymph nodes in the axillary areas bilaterally. BI/SCRN MAMM (CAD)W/EDER BILAT IMPRESSION: Small dense. Small irregular density seen on the left side lateral aspect craniocaudal view needs further assessment by ultrasound. This is new since the previous exam June 2018 BIRADS-0 Electronically Signed: Anabel Mendez, at 15:53 EDT Tel , Service support ,
== END ==
PROVIDERS: PCP Family Medicine; Referring Provider Family Medicine; Visit Provider Family Medicine
DX: Z12.31 Encounter for screening mammogram for malignant neoplasm of breast (principal)
CPT/HCPCS: 77063; 77067

== ENCOUNTER 2021-05-20 17:38 | Emergency (ER) | payer OTHER, SELFPAY ==
[2021-05-20 17:39] VITALS: BP 127/75; PULSE 72; RESP 16; TEMP 36.6; O2SAT 95; BMI 37.4
--- NOTE | 2021-05-20 19:28 | CT_ITS ---
STUDY: CTA HEAD AND NECK WITH CONTRAST REASON FOR EXAM: Female, 50 years old. Sudden head and neck pain RADIATION DOSAGE (If Supplied By Facility): CTDIvol = ( 28.54 ) mGy, DLP = ( 1491.33 ) mGycm TECHNIQUE: CT angiography was performed with a multi-detector CT scanner. Data acquisition was obtained from the skull base through the vertex following intravenous administration of 100mL Isovue-370. MIP images were reconstructed from the axial data set. Post-processing of the angiographic images was performed, with multiplanar reformation and 3D reconstruction. Individualized dose optimization techniques were used for this CT. COMPARISON: May 18, 2015 FINDINGS: Normal bilateral petrous carotid arteries. Normal right cavernous carotid artery with a normal supraclinoid bifurcation. Normal left cavernous carotid artery with a normal supraclinoid bifurcation. Normal right A1 segments of the anterior cerebral artery. Normal left A1 segments of the anterior cerebral artery. Normal intact anterior communicating artery (ACOM). Normal bilateral A2 segments of the anterior cerebral arteries. Normal right M1 and M2 segments of the middle cerebral arteries, with a normal M1 bifurcation. Normal left M1 and M2 segments of the middle cerebral arteries, with a normal M1 bifurcation. Normal right posterior communicating artery (PCOM). There is non-visualization of the left posterior communicating artery (PCOM). There is a small atretic left vertebral artery with a dominant right vertebral artery. Normal basilar artery with a normal basilar bifurcation. The visualized bilateral superior cerebellar (SCA) arteries are normal. Normal bilateral P1, P2 and visualized P3 segments of the posterior cerebral arteries. There is no demonstrated aneurysm of the [place]. There is no demonstrated abnormality of the visualized brain. AORTIC ARCH: Normal visualized aortic arch. Normal origins of the brachiocephalic, left common carotid, and left subclavian arteries. RIGHT CAROTID ARTERIES: Normal right common carotid artery (CCA). Normal right common carotid bulb. Normal origin of the right internal carotid (ICA) artery without a hemodynamically significant stenosis. There is atherosclerotic tortuous elongation of the cervical portion of the right internal carotid artery. Normal origin of the right external carotid artery (ECA). LEFT CAROTID ARTERIES: Normal left common carotid artery (CCA). Normal left common carotid bulb. Normal origin of the left internal carotid (ICA) artery without a hemodynamically significant stenosis. There is atherosclerotic tortuous elongation of the cervical portion of the left internal carotid artery. Normal origin of the left external carotid artery (ECA). VERTEBRAL ARTERIES: Normal bilateral vertebral arteries. Other: Thyroid gland is enlarged with small nodules. There is degenerative change of the cervical spine. CT/CTA Head AND Neck W/ Contrast IMPRESSION: No aneurysm or large vessel occlusion. No internal carotid artery stenosis. Tortuous internal carotid arteries. Electronically Signed: Wilner Hale MD at 21:27 EDT , Service support ,
--- NOTE | 2021-05-20 19:30 | EDS_ITS ---
HPI History of Present Illness Chief Complaint: Headache Detail of Chief Complaint: Headache that started suddenly around 5:20 PM. Informant: patient Onset/Context/Timing Current Severity: 04/01 Maximum Severity: 07/02 Narrative Narrative: Patient presents to the emergency department with complaint of sudden onset of headache that started around 5:20 PM. Patient states that she was doing some work on her knees when she had sudden onset of pain in her head and felt like someone was squeezing her head. Patient complains of pain down into her neck as well. She denies nausea or vomiting. She denies photophobia. She states that 10 years ago she used to have headaches and migraines but really has not had any issue with them since that time. She states that 10 years ago she required a blood patch for a severe headache that was not associated with any type of instrumentation or lumbar puncture. Patient states that there is a family history of brain aneurysms and has had multiple family members from them. Prior similar symptoms: No [facility] Medical History (Updated 05/20/21 @ 21:[address] Sierra Scott, ) Anxiety Benzodiazepine overdose Cardiac murmur Depression Dysmenorrhea Menorrhagia Mixed hyperlipidemia Nonrheumatic mitral (valve) prolapse MARLYN on CPAP Sinus bradycardia Sinusitis Suicidal overdose Suicidal overdose Home Medications sennosides 1 tab PO BID PRN 11/17/16 [History Last Taken Unknown] trazodone 200 mg PO QHS 11/17/16 [History Last Taken Unknown] pravastatin 40 mg PO QHS 03/28/17 [History Last Taken Unknown] fluticasone propionate 50 mcg/actuation nasal spray,suspension 2 spray INTRANASAL DAILY 12/27/18 [History Last Taken Unknown] lisdexamfetamine 30 mg capsule 40 mg PO QAM cap 12/27/18 [History Last Taken Unknown] omeprazole 20 mg tablet,delayed release 20 mg PO DAILY 12/27/18 [History Last Taken Unknown] cholecalciferol (vitamin D3) 50 mcg (2,000 unit) capsule 4,000 unit PO DAILY cap 01/13/19 [History Last Taken Unknown] cyanocobalamin (vitamin B-12) 1,000 mcg tablet 1,000 mcg PO .qod tab 03/02/20 [History Last Taken Unknown] levothyroxine 100 mcg tablet See Rx Instructions .ROUTE .COMPLEX tab 04/10/20 [History Last Taken Unknown] diclofenac potassium 100 mg PO DAILY 03/03/21 [History Last Taken Unknown] Allergy/AdvReac Type Severity Reaction Status Date / Time sertraline [From Zoloft] Allergy Severe nausea, Verified 05/20/21 17:39 vomiting venom-honey bee Allergy Severe Swelling Verified 05/20/21 17:39 [bee venom (honey bee)] bupropion [From Wellbutrin] AdvReac Severe nightmares Verified 05/20/21 17:39 citalopram [From Celexa] AdvReac Severe sexual Verified 05/20/21 17:39 side effect Family History Sister Hypertension Myocardial infarction Sister Heart disease Hypertension Grandmother CVA (cerebral vascular accident) Heart disease Brother Hypertension Father CVA (cerebral vascular accident) Sister Hypertension Sister Hypertension Mother Heart disease Surgical History History of carpal tunnel surgery History of hysterectomy Social History (Updated 03/02/20 @ 13:[address] Edgar Sol MD) Smoking Status: Never smoker alcohol intake: never substance use type: does not use ROS ROS ED Constitutional Constitutional ED: Reports systems reviewed and no addt'l complaints, except as documented; Denies body ache(s), change in weight or chills Eyes Eyes: Denies acute decrease in peripheral vision, change in vision, double vision or loss of vision ENT ENT ED: Reports none; Denies ear pain, lip swelling, loss taste/smell, neck pain, otalgia or sore throat Cardiovascular Cardiovascular: Reports none; Denies abdominal pain, chest pain with activity, leg edema, lightheadedness, palpitations, rapid heart rate or syncope Respiratory/Chest Respiratory/Chest: Reports none; Denies change in mental status, dry cough, dyspnea, hemoptysis, shortness of breath at rest or shortness of breath with exertion Gastrointestinal Gastrointestinal: Reports none and nausea; Denies abdominal pain, change in stool character, diarrhea, hematemesis, hematochezia, melena, rectal bleeding or vomiting Genitourinary Genitourinary ED: Reports none; Denies abdominal discomfort, anuria, dysuria, genital pain or polyuria Musculoskeletal Musculoskeletal: Reports none; Denies arthralgias, back pain, difficulty walking, extremity pain, muscle weakness or myalgias Integumentary Reports none; Denies abscess or rash Neurologic Neurologic: Reports none and headache(s); Denies abnormal gait, confusion, focal weakness, frequent falls, loss of vision, numbness, paresthesias, radicular pain, vertigo or weakness Psychiatric Psychiatric: Reports systems reviewed and no addt'l complaints, except as documented and none; Denies behavioral changes, confusion, difficulty concentrating, hallucinations, suicidal ideation, tactile hallucinations or visual hallucinations Endocrine Endocrinology: Denies none, cold intolerance, excessive sweating, fatigue or heat intolerance Hematologic/Lymphatic Hematologic/Lymphatic: Reports none; Denies anemia, easy bleeding or easy bruising Allergic/Immunologic Allergic/Immunologic ED: Denies as per HPI, none, lip swelling, mouth swelling, throat swelling, tongue swelling or hives EXAM Physical Exam Const Vital Signs: 05/20/21 17:39 05/20/21 20:51 Temperature 97.8 F Temperature Source Temporal Pulse Rate 72 55 L Respiratory Rate 16 15 Blood Pressure 127/75 H 120/72 Blood Pressure Mean 92 88 Pulse Ox 95 Oxygen Delivery Method Room Air Positive well nourished and well developed General Appearance ED: well developed and NAD HEENT Reports TM's clear and moist mucous membranes normocephalic and atraumatic; Negative for trauma or tenderness Tympanic Membrane ED: Yes TM's clear Eyes PERRL and EOMs intact bilaterally General Eye ED: Negative for pale conjunctiva or scleral icterus Neck no lymphadenopathy, supple and no JVD General: Negative for tenderness Chest Wall inspection of chest normal and palpation of chest normal Chest: Negative for tenderness Resp normal respiratory effort and clear to auscultation bilaterally Effort and Inspection: Negative for respiratory distress or pain with movement Auscultation: Negative for rhonchi, wheezes or diminished lung sounds Cardio regular rate, regular rhythm, S1 normal heart sound, S2 normal heart sound and no murmurs Peripheral Pulses: pulses 2+ throughout GI normal to inspection, nondistended, normoactive bowel sounds, soft to palpation, non-tender, non-distended and no masses Back/Spine no CVA tenderness and no thoracic nor lumbar tenderness Extremity normal to inspection General Extremety ED: Negative for edema General Extremity: Negative for edema Neuro oriented x3, CN's II-XII intact bilaterally, no sensory deficits noted and gait normal Neuro Narrative: Finger-nose and heel gavin testing within normal limits, negative Romberg, negative for drift, fundi benign Sensorium / Orientation: awake, alert, oriented to person, oriented to place and oriented to time Motor Exam: strength 5/5 throughout and strength abnormal Psych mental status grossly normal Skin no rashes or lesions noted and no wounds MDM MDM MDM Narrative Medical decision making narrative: Patient's headache mostly resolved at this time after medication with Reglan and Benadryl as well as a liter fluid bolus. CTA of head and neck was unremarkable. I suspect possibly migraine as the etiology versus tension headache. Patient's had a lot of chronic issues with neck pain and history of spinal stenosis. She is in pain management. She will follow-up with her primary care physician and pain management doctor. Lab Data Attestation: I reviewed the patient's lab results. Labs: Laboratory Results - last 24 hr 05/20/21 05/20/21 19:40 19:40 WBC 8.3 RBC 4.14 L Hgb 12.7 Hct 40.4 MCV 97.6 MCH 30.7 MCHC 31.4 L RDW Std Deviation 45.1 H RDW Coeff of Serafin 12.6 Plt Count 334 MPV 10.3 Immature Gran % (Auto) 0.400 Neut % (Auto) 63.8 Lymph % (Auto) 25.0 Harlan % (Auto) 8.2 Eos % (Auto) 1.9 Baso % (Auto) 0.7 Absolute Neuts (auto) 5.3 Absolute Lymphs (auto) 2.06 Nucleated RBC % 0 Sodium 143 Potassium 3.7 Chloride 106 Carbon Dioxide 30.0 Anion Gap 7 BUN 14 Creatinine 0.89 Estim Creat Clear Calc 68.05 Est GFR (MDRD) Af Amer 86 Est GFR (MDRD) Non-Af 71 BUN/Creatinine Ratio 15.7 Glucose 109 H Calcium 9.1 Radiography Diagnostic Testing: Radiology Impression Head/Neck CTA 05/20/21 19:28 IMPRESSION: No aneurysm or large vessel occlusion. No internal carotid artery stenosis. Tortuous internal carotid arteries. Electronically Signed: Wilner Hale MD at 21:27 EDT , Service support , Discharge Plan Triage Chief Complaint: Headache ED Provider: Ungur,Remus Dx/Rx/DC Orders Clinical Impression: Headache Instructions: ED Headache Unspecified Prescriptions: No Action Vyvanse 30 mg capsule 40 mg PO QAM RF: 0 fluticasone propionate [Allergy Relief (fluticasone)] 50 mcg/actuation spray,suspension 2 spray INTRANASAL DAILY RF: 0 omeprazole 20 mg tablet,delayed release (DR/EC) 20 mg PO DAILY RF: 0 levothyroxine 100 mcg tablet See Rx Instructions .ROUTE .COMPLEX RF: 0 sennosides 1 TABLET tablet 1 tab PO BID PRN (Reason: Constipation) RF: 0 trazodone 100 MG tablet 200 mg PO QHS RF: 0 cholecalciferol (vitamin D3) 2,000 unit capsule 4,000 unit PO DAILY RF: 0 cyanocobalamin (vitamin B-12) 1,000 mcg tablet 1,000 mcg PO .qod RF: 0 pravastatin 40 MG tablet 40 mg PO QHS RF: 0 diclofenac potassium 50 MG tablet 100 mg PO DAILY RF: 0 Primary Care Provider: Conner Carpio Referrals: Conner Carpio MD [Primary Care Provider] - 3-5 Days Disposition Disposition: Home, Self Care
[2021-05-20] MEDS: DiphenhydrAMINE 50 MG/ML Syringe 25 MG IV (19:40)
[2021-05-20] MEDS: Metoclopramide 10 MG/2 ML Vial IV (19:40)
[2021-05-20] MEDS: 0.9% Normal Saline 1,000 ML 1000 ML IV (19:40)
[2021-05-20 19:55] LABS: Absolute Lymphocyte Count 2.06 X10^3/uL (0.83-4.51); Absolute Neutrophil Count 5.3 X10^3/uL (2.0-7.7); Basophil# 0.06 X10^3/uL; Basophil% 0.7 % (0-1); Eosinophil# 0.16 X10^3/uL; Eosinophils% 1.9 % (0-5); Hematocrit 40.4 % (37-47); Hemoglobin 12.7 g/dL (12.0-15.0); Lymphocyte # 2.06 X10^3/ul (0.83-4.51); Mean Corp Hgb Conc 31.4 g/dL (32-36); Mean Corpuscular Hgb 30.7 pg (27.0-32.0); Mean Corpuscular Volume 97.6 fL (81-99); Mean Platelet Vol. 10.3 fl (6.2-12.0); Monocyte# 0.68 X10^3/uL; Monocyte% 8.2 % (0-10); NRBC Flagged by Analyzer 0 % (0-5); Neutrophil # 5.26 X10^3/uL (2.7-7.7); Neutrophil % 63.8 % (47-70); Platelet Count 334 K/mm3 (150-450); RBC Distribution Width CV 12.6 % (11.6-14.6); RBC Distribution Width SD 45.1 fl (35.1-43.9); Red Blood Count 4.14 M/mm3 (4.2-5.4); White Blood Count 8.3 K/mm3 (4.4-11.0)
[2021-05-20 20:11] LABS: Anion Gap 7 (5-15); BUN 14 mg/dL (7-18); BUN/Creat Ratio 15.7 RATIO (10-20); Calcium,Total 9.1 mg/dL (8.5-10.1); Chloride 106 mmol/L (98-107); Creatinine, Serum 0.89 mg/dL (0.55-1.02); EST Glomerular Filtration Rate 71 mL/min (>60); Est Glom Filt Rate - Afr Amer 86 mL/min (>60); Estimated Creatinine Clearance 68.05 ml/min; Glucose 109 mg/dL (74-106); Potassium 3.7 mmol/L (3.5-5.1); Sodium Level 143 mmol/L (136-145)
[2021-05-20 20:51] VITALS: BP 120/72; PULSE 55; RESP 15
[2021-05-20 21:29] VITALS: BP 108/58; PULSE 57; RESP 16; O2SAT 98
== END 2021-05-20 21:33 | disposition home or self-care (01) ==
PROVIDERS: Emergency Provider Emergency Medicine; PCP Family Medicine
DX: R51.9 Headache, unspecified (principal); E78.2 Mixed hyperlipidemia; Z79.899 Other long term (current) drug therapy
CPT/HCPCS: 70496; 70498; 80048; 85025; 96361; 96374; 96375; 99283; J7030; Q9967; A4216

== ENCOUNTER → 2021-05-22 10:53 | Outpatient (CLI) | payer OTHER, SELFPAY ==
[2021-05-20 17:39] VITALS: BMI 37.4
--- NOTE | 2021-05-22 10:56 | US_ITS ---
STUDY: ULTRASOUND BREAST - LEFT REASON FOR EXAM: Female, 50 years old. Abnormal screening mammogram. TECHNIQUE: Axial and longitudinal images of the LEFT breast were performed with a high resolution ultrasound transducer. # OF IMAGES: 42 COMPARISON: Comparison is made with prior mammogram dated 05/15/2021. FINDINGS: LEFT Breast: The lateral half of the left breast was examined by ultrasound. No sonographic abnormality is seen. US/Breast Limited Unilateral IMPRESSION: No sonographic abnormality is seen. ASSESSMENT CATEGORY: BIRADS Category 1: Negative. A letter regarding these results will be sent to the patient by the facility within 30 days. Electronically Signed: Bebeto Booker MD at 15:13 EDT , Service support ,
== END ==
PROVIDERS: PCP Family Medicine; Referring Provider Family Medicine; Visit Provider Family Medicine
DX: R92.8 Other abnormal and inconclusive findings on diagnostic imaging of breast (principal)
CPT/HCPCS: 76642

== ENCOUNTER → 2021-06-26 10:30 | Outpatient (CLI) | payer OTHER, SELFPAY ==
[2021-06-26 12:08] LABS: Hemoglobin 13.4 g/dL (12.0-15.0); Mean Corp Hgb Conc 31.2 g/dL (32-36); Mean Corpuscular Hgb 30.7 pg (27.0-32.0); Mean Corpuscular Volume 98.4 fL (81-99); Mean Platelet Vol. 10.8 fl (6.2-12.0); Platelet Count 350 K/mm3 (150-450); RBC Distribution Width CV 12.3 % (11.6-14.6); RBC Distribution Width SD 45.1 fl (35.1-43.9); Red Blood Count 4.37 M/mm3 (4.2-5.4); White Blood Count 6.8 K/mm3 (4.4-11.0)
[2021-06-26 12:34] LABS: AST(SGOT) 19 U/L (15-37); Alanine Aminotransfer ALT/SGPT 34 U/L (13-56); Albumin, Serum 3.9 g/dL (3.2-5.0); Alkaline Phosphatase 91 U/L (45-117); Anion Gap 5 (5-15); BUN 19 mg/dL (7-18); BUN/Creat Ratio 24.3 RATIO (10-20); Calcium,Total 9.3 mg/dL (8.5-10.1); Chloride 107 mmol/L (98-107); Creatinine, Serum 0.78 mg/dL (0.55-1.02); EST Glomerular Filtration Rate 83 mL/min (>60); Est Glom Filt Rate - Afr Amer 100 mL/min (>60); Ferritin 181 ng/mL (8-252); Free T3 2.2 pg/mL (2.18-3.98); Glucose 96 mg/dL (74-106); Iron 80 ug/dL (50-170); Potassium 4.1 mmol/L (3.5-5.1); Protein, Total 7.9 g/dL (6.4-8.2); Sodium Level 140 mmol/L (136-145); T4 Free Direct 1.36 ng/dL (0.76-1.46); Thyroid Stim Hormone (TSH) 0.81 uIU/mL (0.358-3.74)
[2021-06-26 12:39] LABS: Vitamin B12 1572 pg/mL (211-911)
== END ==
PROVIDERS: PCP Family Medicine; Referring Provider Family Medicine; Visit Provider Family Medicine
DX: D64.9 Anemia, unspecified (principal); E03.9 Hypothyroidism, unspecified; E55.9 Vitamin D deficiency, unspecified; R53.81 Other malaise
CPT/HCPCS: 36415; 80053; 82306; 82607; 82728; 83540; 84439; 84443; 84481; 85027

== ENCOUNTER 2021-06-28 14:48 | Emergency (ER) | payer OTHER, SELFPAY ==
[2021-06-28 14:50] VITALS: BP 121/64; PULSE 67; RESP 17; TEMP 36.1; O2SAT 95; BMI 37.3
--- NOTE | 2021-06-28 15:15 | EDS_ITS ---
HPI History of Present Illness Chief Complaint: Other, Pain/Inj Informant: patient Onset/Context/Timing Onset: - (Acute on chronic) Current Severity: Moderate Maximum Severity: Severe Narrative Narrative: Patient presents secondary to neck pain. She is a history of spinal stenosis in her neck and is currently under pain management Dr. Pugh. She states he did call in a prescription for Percocet and steroids for her but told her if the pain was severe it was okay to go to the emergency room for a shot of pain medication. Patient denies any recent injury. She states she is not able to take her pain medication during the day when she has to work because it makes her sleepy. Her last dose of pain medication was last evening. [facility] Medical History Anxiety Benzodiazepine overdose Cardiac murmur Depression Dysmenorrhea Menorrhagia Mixed hyperlipidemia Nonrheumatic mitral (valve) prolapse MARLYN on CPAP Sinus bradycardia Sinusitis Suicidal overdose Suicidal overdose Home Medications sennosides 1 tab PO BID PRN 11/17/16 [History Last Taken Unknown] trazodone 200 mg PO QHS 11/17/16 [History Last Taken Unknown] pravastatin 40 mg PO QHS 03/28/17 [History Last Taken Unknown] fluticasone propionate 50 mcg/actuation nasal spray,suspension 2 spray INTRANASAL DAILY 12/27/18 [History Last Taken Unknown] lisdexamfetamine 30 mg capsule 40 mg PO QAM cap 12/27/18 [History Last Taken Unknown] omeprazole 20 mg tablet,delayed release 20 mg PO DAILY 12/27/18 [History Last Taken Unknown] cholecalciferol (vitamin D3) 50 mcg (2,000 unit) capsule 4,000 unit PO DAILY cap 01/13/19 [History Last Taken Unknown] cyanocobalamin (vitamin B-12) 1,000 mcg tablet 1,000 mcg PO .qod tab 03/02/20 [History Last Taken Unknown] levothyroxine 100 mcg tablet See Rx Instructions .ROUTE .COMPLEX tab 03/02/20 [History Last Taken Unknown] diclofenac potassium 100 mg PO DAILY 03/03/21 [History Last Taken Unknown] oxycodone-acetaminophen [Percocet] 1 tab PO Q6H PRN 06/28/21 [History Last Taken Unknown] Allergy/AdvReac Type Severity Reaction Status Date / Time sertraline [From Zoloft] Allergy Severe nausea, Verified 06/28/21 14:49 vomiting venom-honey bee Allergy Severe Swelling Verified 06/28/21 14:49 [bee venom (honey bee)] bupropion [From Wellbutrin] AdvReac Severe nightmares Verified 06/28/21 14:49 citalopram [From Celexa] AdvReac Severe sexual Verified 06/28/21 14:49 side effect Family History Sister Hypertension Myocardial infarction Sister Heart disease Hypertension Grandmother CVA (cerebral vascular accident) Heart disease Brother Hypertension Father CVA (cerebral vascular accident) Sister Hypertension Sister Hypertension Mother Heart disease Surgical History History of carpal tunnel surgery History of hysterectomy Social History Smoking Status: Never smoker alcohol intake: never substance use type: does not use ROS ROS ED Constitutional Constitutional ED: Denies chills or fever(s) Eyes Eyes: Denies change in vision ENT ENT ED: Denies sore throat Cardiovascular Cardiovascular: Denies chest pain Respiratory/Chest Respiratory/Chest: Denies cough or dyspnea Gastrointestinal Gastrointestinal: Denies abdominal pain, diarrhea, nausea or vomiting Genitourinary Genitourinary ED: Denies dysuria Musculoskeletal Musculoskeletal: Reports arthralgias and neck pain; Denies back pain Integumentary Denies rash Neurologic Neurologic: Denies weakness Psychiatric Psychiatric: Denies anxiety or depression Allergic/Immunologic Allergic/Immunologic ED: Denies urticaria EXAM Physical Exam Const Vital Signs: 06/28/21 14:50 Temperature 97.0 F L Temperature Source Temporal Pulse Rate 67 Respiratory Rate 17 Blood Pressure 121/64 H Blood Pressure Mean 83 Pulse Ox 95 Oxygen Delivery Method Room Air Positive well nourished and well developed General Appearance ED: well developed HEENT Reports normocephalic and head/scalp atraumatic Eyes PERRL and EOMs intact bilaterally Neck supple Chest Wall inspection of chest normal and palpation of chest normal Resp normal respiratory effort and clear to auscultation bilaterally Cardio regular rate and regular rhythm GI normal to inspection, nondistended, normoactive bowel sounds Palpation: soft Back/Spine no CVA tenderness Back/Spine Narrative: Left lower paracervical tenderness. No midline cervical tenderness. Extremity normal to inspection Neuro oriented x3 and no sensory deficits noted Sensorium / Orientation: alert Motor Exam: strength 5/5 throughout Psych mental status grossly normal Skin no rashes or lesions noted MDM MDM MDM Narrative Medical decision making narrative: Patient is given IM injection of Dilaudid for pain control. 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 Discharge Plan Triage Chief Complaint: Other, Pain/Inj ED Provider: Brea Vaz Dx/Rx/DC Orders Clinical Impression: Spinal stenosis Instructions: ED Back and Neck Pain, General Prescriptions: No Action Vyvanse 30 mg capsule 40 mg PO QAM RF: 0 fluticasone propionate [Allergy Relief (fluticasone)] 50 mcg/actuation spray,suspension 2 spray INTRANASAL DAILY RF: 0 omeprazole 20 mg tablet,delayed release (DR/EC) 20 mg PO DAILY RF: 0 levothyroxine 100 mcg tablet See Rx Instructions .ROUTE .COMPLEX RF: 0 sennosides 1 TABLET tablet 1 tab PO BID PRN (Reason: Constipation) RF: 0 trazodone 100 MG tablet 200 mg PO QHS RF: 0 cholecalciferol (vitamin D3) 2,000 unit capsule 4,000 unit PO DAILY RF: 0 cyanocobalamin (vitamin B-12) 1,000 mcg tablet 1,000 mcg PO .qod RF: 0 pravastatin 40 MG tablet 40 mg PO QHS RF: 0 diclofenac potassium 50 MG tablet 100 mg PO DAILY RF: 0 oxycodone-acetaminophen [Percocet] 5-325 mg Tablet 1 tab PO Q6H PRN (Reason: Pain) RF: 0 Primary Care Provider: Conner Carpio Referrals: Conner Carpio MD [Primary Care Provider] - Román Miles MD [STAFF PHYSICIAN] - Keep [facility] appointment Disposition Disposition: Home, Self Care
[2021-06-28] MEDS: HYDROmorphone 1 MG/ML Syringe IM (15:30)
== END 2021-06-28 15:52 | disposition home or self-care (01) ==
PROVIDERS: Emergency Provider Emergency Medicine; PCP Family Medicine
DX: M48.00 Spinal stenosis, site unspecified (principal); E78.2 Mixed hyperlipidemia; Z79.899 Other long term (current) drug therapy
CPT/HCPCS: 96372; 99282

== ENCOUNTER 2021-06-29 15:05 | Emergency (ER) | payer OTHER, SELFPAY ==
[2021-06-28 14:50] VITALS: BMI 37.3
[2021-06-29 15:06] VITALS: BP 142/90; PULSE 68; RESP 6; TEMP 36.2; O2SAT 95; BMI 37.2
--- NOTE | 2021-06-29 16:13 | EDS_ITS ---
HPI History of Present Illness Chief Complaint: Other, Pain/Inj Detail of Chief Complaint: None traumatic neck pain Informant: patient and family Onset/Context/Timing Onset: Days Context: Gradual Onset Timing: Continuous Current Severity: Mild Maximum Severity: Moderate Narrative Narrative: 50-year-old female has known spinal stenosis of her neck. She seen a spine surgeon but she has been trying to hold off on surgery. She also sees Dr. Pugh of pain management and is on Percocet at home for pain along with a muscle relaxant anti-inflammatory. She gets spine injections from time to time. States she is just having pain in the left lateral side of her neck. Denies any recent trauma. No fever. No numbness or weakness of her upper or lower extremities. Prior similar symptoms: Yes Recent Illness/Hospitalization: No PFSH PFS Medical History Anxiety Benzodiazepine overdose Cardiac murmur Depression Dysmenorrhea Menorrhagia Mixed hyperlipidemia Nonrheumatic mitral (valve) prolapse MARLYN on CPAP PTSD (post-traumatic stress disorder) Sinus bradycardia Sinusitis Suicidal overdose Suicidal overdose Home Medications sennosides 1 tab PO BID PRN 11/17/16 [History Last Taken Unknown] trazodone 200 mg PO QHS 11/17/16 [History Last Taken Unknown] pravastatin 40 mg PO QHS 03/28/17 [History Last Taken Unknown] fluticasone propionate 50 mcg/actuation nasal spray,suspension 2 spray INTRANASAL DAILY 12/27/18 [History Last Taken Unknown] lisdexamfetamine 30 mg capsule 40 mg PO QAM cap 12/27/18 [History Last Taken Unknown] omeprazole 20 mg tablet,delayed release 20 mg PO DAILY 12/27/18 [History Last Taken Unknown] cholecalciferol (vitamin D3) 50 mcg (2,000 unit) capsule 4,000 unit PO DAILY cap 01/13/19 [History Last Taken Unknown] cyanocobalamin (vitamin B-12) 1,000 mcg tablet 1,000 mcg PO .qod tab 03/02/20 [History Last Taken Unknown] levothyroxine 100 mcg tablet See Rx Instructions .ROUTE .COMPLEX tab 03/02/20 [History Last Taken Unknown] diclofenac potassium 100 mg PO DAILY 03/03/21 [History Last Taken Unknown] oxycodone-acetaminophen [Percocet] 1 tab PO Q6H PRN 06/28/21 [History Last Taken Unknown] cyclobenzaprine 10 mg PO TID 06/29/21 [History Last Taken Unknown] methylprednisolone mg 06/29/21 [History Last Taken Unknown] Allergy/AdvReac Type Severity Reaction Status Date / Time sertraline [From Zoloft] Allergy Severe nausea, Verified 06/29/21 15:05 vomiting venom-honey bee Allergy Severe Swelling Verified 06/29/21 15:05 [bee venom (honey bee)] bupropion [From Wellbutrin] AdvReac Severe nightmares Verified 06/29/21 15:05 citalopram [From Celexa] AdvReac Severe sexual Verified 06/29/21 15:05 side effect Family History Sister Hypertension Myocardial infarction Sister Heart disease Hypertension Grandmother CVA (cerebral vascular accident) Heart disease Brother Hypertension Father CVA (cerebral vascular accident) Sister Hypertension Sister Hypertension Mother Heart disease Surgical History History of carpal tunnel surgery History of hysterectomy Social History Smoking Status: Never smoker alcohol intake: never substance use type: does not use ROS ROS ED ROS Narrative Denies recent illness. Review of Systems ROS Unobtainable: Denies due to encephalopathy Constitutional Constitutional ED: Denies chills or fever(s) Eyes Eyes: Denies change in vision ENT ENT ED: Denies ear pain or sore throat Cardiovascular Cardiovascular: Denies chest pain Respiratory/Chest Respiratory/Chest: Denies cough or dyspnea Gastrointestinal Gastrointestinal: Denies abdominal pain, diarrhea, nausea or vomiting Genitourinary Genitourinary ED: Denies dysuria Musculoskeletal Musculoskeletal: Reports neck pain; Denies myalgias Integumentary Denies rash Neurologic Neurologic: Denies headache(s) Psychiatric Psychiatric: Denies depression Endocrine Endocrinology: Denies polyuria Allergic/Immunologic Allergic/Immunologic ED: Denies urticaria EXAM Physical Exam Narrative Exam Narrative: Middle-aged female no acute distress vital signs stable afebri le. HEENT exam unremarkable neck lymphadenopathy left trapezius spasm and tenderness. Lungs clear. Heart regular rhythm. Abdomen soft nontender. 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 Normal range of motion. Neurologic exam unremarkable. Const Vital Signs: 06/29/21 15:06 06/29/21 15:33 Temperature 97.2 F L Temperature Source Temporal Pulse Rate 68 Respiratory Rate 6 L Respiratory Effort Normal Respiratory Pattern Normal Blood Pressure 142/90 H Blood Pressure Mean 107 Pulse Ox 95 Oxygen Delivery Method Room Air Positive well nourished and well developed; Negative for unkempt General Appearance ED: well developed; Negative for unkempt HEENT Reports moist mucous membranes Negative for trauma or tenderness Eyes PERRL and EOMs intact bilaterally Neck no lymphadenopathy, supple and no JVD General: tenderness Chest Wall inspection of chest normal and palpation of chest normal Resp normal respiratory effort and clear to auscultation bilaterally Cardio regular rate, regular rhythm, S1 normal heart sound, S2 normal heart sound and no murmurs GI normal to inspection, nondistended, normoactive bowel sounds, non-tender and non-distended Auscultation: normoactive bowel sounds Palpation: soft Back/Spine no CVA tenderness Extremity normal to inspection General Extremety ED: Negative for edema or tenderness General Extremity: Negative for edema Neuro oriented x3 and CN's II-XII intact bilaterally Sensorium / Orientation: alert; Negative for orientation impaired, lethargic or stuporous Motor Exam: strength 5/5 throughout Psych mental status grossly normal Appearance: Negative for unkempt Skin no rashes or lesions noted and no wounds MDM MDM MDM Narrative Medical decision making narrative: Middle-aged female has known neck and back chronic pain under pain management. Has obvious left trapezius muscle spasm. She is already on a muscle relaxant, Percocet and anti-inflammatory at home. She will be given p.o. Valium here. She and I discussed there is no need for imaging today. Outpatient follow-up with her pain management doctor and spine surgeon. Discharge Plan Triage Chief Complaint: Other, Pain/Inj ED Provider: Anibal Cisneros Dx/Rx/DC Orders Clinical Impression: Neck muscle spasm Instructions: ED Neck Spasm, No Trauma Prescriptions: No Action Vyvanse 30 mg capsule 40 mg PO QAM RF: 0 fluticasone propionate [Allergy Relief (fluticasone)] 50 mcg/actuation spray,suspension 2 spray INTRANASAL DAILY RF: 0 omeprazole 20 mg tablet,delayed release (DR/EC) 20 mg PO DAILY RF: 0 levothyroxine 100 mcg tablet See Rx Instructions .ROUTE .COMPLEX RF: 0 sennosides 1 TABLET tablet 1 tab PO BID PRN (Reason: Constipation) RF: 0 trazodone 100 MG tablet 200 mg PO QHS RF: 0 cholecalciferol (vitamin D3) 2,000 unit capsule 4,000 unit PO DAILY RF: 0 cyanocobalamin (vitamin B-12) 1,000 mcg tablet 1,000 mcg PO .qod RF: 0 pravastatin 40 MG tablet 40 mg PO QHS RF: 0 diclofenac potassium 50 MG tablet 100 mg PO DAILY RF: 0 oxycodone-acetaminophen [Percocet] 5-325 mg Tablet 1 tab PO Q6H PRN (Reason: Pain) RF: 0 cyclobenzaprine 10 mg tablet 10 mg PO TID RF: 0 methylprednisolone 4 mg tablets,dose pack RF: 0 Primary Care Provider: Conner Carpio Referrals: Conner Carpio MD [Primary Care Provider] - As Needed Activity Restrictions/Additional Instructions: Follow-up with your pain management doctor and spine doctor as needed. Hot shower, warm bath and massage to help relieve muscle spasms in your neck. Continue with your current medications such as your home anti-inflammatory, muscle relaxant and pain medications. Disposition Disposition: Home, Self Care
[2021-06-29] MEDS: diazePAM 5 MG Tablet 10 MG PO (16:16)
[2021-06-29 16:35] VITALS: RESP 18
== END 2021-06-29 16:36 | disposition home or self-care (01) ==
PROVIDERS: Emergency Provider Emergency Medicine; PCP Family Medicine
DX: M62.838 Other muscle spasm (principal); M54.2 Cervicalgia; E78.2 Mixed hyperlipidemia; Z79.899 Other long term (current) drug therapy
CPT/HCPCS: 99284

== ENCOUNTER → 2021-07-10 12:14 | Outpatient (CLI) | payer OTHER, SELFPAY ==
[2021-06-29 15:06] VITALS: BMI 37.2
--- NOTE | 2021-07-10 12:17 | ECHOD_ITS ---
Reason For Study: MVP Procedure This was a 2D Doppler, Color Flow transthoracic echocardiogram. The exam was of adequate technical quality. Exam performed in department. Left Ventricle Normal LV size. Apical false tendon noted. Left ventricular systolic function is normal. The estimated ejection fraction is 60 %. No evidence for diastolic dysfunction. No regional wall motion abnormalities noted. Right Ventricle Normal RV size. Normal systolic function. Atria Normal left atrium. Normal right atrium. No doppler evidence for ASD. Mitral Valve There is no mitral annular calcification. Equivocal mitral valve prolapse. Trivial mitral valve insufficiency. Tricuspid Valve Normal tricuspid valve. Trivial tricuspid valve insufficiency. Unable to estimate RV systolic pressure due to insufficient tricuspid regurgitant envelope. Aortic Valve Trisinus/trileaflet aortic valve. Normal aortic valve. Pulmonic Valve The pulmonic valve is not well visualized. Great Vessels Normal sized aortic root. Pericardium/Pleural No pericardial effusion. Medication Patient has a known PFO. MMode/2D Measurements & Calculations LVIDd: 5.2 cm IVSd: 1.1 cm Ao root diam: 3.3 cm LVIDs: 2.5 cm LVPWd: 1.1 cm RVDd: 3.3 cm FS: 51.0 % LAV(MOD-bp): 39.1 ml LVAd ap4: 32.4 cm2 LVAd ap2: 32.0 cm2 LAV(MOD-bp) Indexed: 18.6 ml/m2 LVLd ap4: 8.5 cm LVLd ap2: 8.2 cm LAV(MOD-sp2): 40.8 ml EDV(MOD-sp4): 105.0 ml EDV(MOD-sp2): 108.9 ml LAV(MOD-sp4): 36.8 ml EDV(sp4-el): 105.1 ml EDV(sp2-el): 105.4 ml LVAs ap4: 19.5 cm2 LVAs ap2: 16.8 cm2 LVLs ap4: 7.3 cm LVLs ap2: 6.9 cm ESV(MOD-sp4): 47.9 ml ESV(MOD-sp2): 36.1 ml ESV(sp4-el): 44.5 ml ESV(sp2-el): 34.5 ml EF(MOD-sp4): 54.4 % EF(MOD-sp2): 66.9 % EF(sp4-el): 57.6 % SV(MOD-sp4): 57.1 ml SV(MOD-sp2): 72.8 ml SV(sp4-el): 60.6 ml LA A4 area: 14.7 cm2 RA A4 area: 15.8 cm2 Doppler Measurements & Calculations MV E max wilian: 86.8 cm/sec Lat Peak E' Wilian: 13.0 cm/sec Med Peak E' Wilina: 8.3 cm/sec MV A max wilian: 45.8 cm/sec E/E' lat: 6.7 E/E' med: 10.5 MV E/A: 1.9 Ao V2 max: 151.6 cm/sec LV V1 max: 125.5 cm/sec PA V2 max: 100.0 cm/sec Ao max P.2 mmHg LV V1 max P.3 mmHg ECHO/Echo Complete Interpretation Summary Left ventricular systolic function is normal. The estimated ejection fraction is 60 %. Apical false tendon noted. Equivocal mitral valve prolapse. Trivial mitral valve insufficiency. Trivial tricuspid valve insufficiency. Unable to estimate RV systolic pressure due to insufficient tricuspid regurgita nt envelope. No evidence for diastolic dysfunction. Ordering Physician: Conner Carpio Referring Physician: Conner Carpio Performed By: Sophie Duff, [place]
== END ==
PROVIDERS: PCP Family Medicine; Referring Provider Family Medicine; Visit Provider Family Medicine
DX: I05.9 Rheumatic mitral valve disease, unspecified (principal)
CPT/HCPCS: 93306

== ENCOUNTER → 2021-09-19 17:51 | Outpatient (CLI) | payer OTHER, SELFPAY | PROVIDERS: PCP Family Medicine; Referring Provider Family Medicine; Visit Provider Family Medicine | DX: Z20.822 Contact with and (suspected) exposure to COVID-19 (principal) | CPT/HCPCS: 87635; U0005; U0003 ==

== ENCOUNTER 2021-10-02 10:30 | Outpatient (RCR) | payer OTHER, SELFPAY ==
--- NOTE | 2021-07-31 11:45 | HP.PTEVAL_ITS ---
Patient's Visit Information KRISTI MEDRANO is a 50 year old F referred to Physical Therapy by Dr. Román Miles MD with a diagnosis of cervical disc degeneration adn spondylosis.. Date of Evaluation: 07/31/21 Physical Therapist: Montana Blanco, DPT, OCS, CSCS - Visit Plan Frequency: 2-3x /Week Duration: 4-6 Weeks Plan: 3x/week for 3-6 weeks for.. 1. STM to pericervical mm with Manual PROM ret/ext, rotations and manual traction. 2. postural and cervical and core strength(cervical and LB) to HEP. 3. Pt has TENs that she will bring in to be taught on. - Subjective Has spinal stenosis in neck and OA in LB and pain in both places R gricelda eneck severe and L moderate. Saw surgeon and he ordered pain management. Has had injections in neck and LB and they help her LB but neck still feels squished down and can sause posterior SAUCEDO. Neck has hurt for years and worse last year or two. LB has hurt for long time also. Denies numbness or tingling and no arm or leg symptoms. Pain in neck to 5/10 on normal day and to 7/10. Rarely not painful at all. LB pain 0-9/109 and been to ER 3 x in past few months. Better now due to injections. Is on muscle relaxer. 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 Exercises : none. Sleep is not interrupted due to pain, sleeping and pain pill helps. Is a surgical candidate but does not want it. Home activities are interrupted in that she will have ramp put out front as it is hard to climb steps later in day due to pain. Trying to get shower bars. Can't mow lawn anymore. - Pain Neck pain Pain Intensity (Out of 10): 5 Pain Intensity Range: 0, 5, 9 LBP Pain Intensity (Out of 10): 0 Pain Intensity Range: 0, 10 - Objective cervical AROM L 45, R 60 and ext 55, some pain L rotation centrally. Lumbar ext mod llimited and flexion min limited and SB WNL and no pain today. reflexes 2/3 bi and tri and achilles, and patella. Sensation UE and LE WNL to gross light touch. Strength 4- LE and 4 UE without myotomal abnormalities. core strength 3+ flexiona dn ext. Tender to palpation in B UT, subocc and rhomboids. scap mobility is slow but fair. Posture is max forward head and protracted scap B. Kyphosis preferred in thoracic spine. Flat lumbar lordosis. Walks normal witho ut pain today and trasnfers slow but I. - Balance/Special Test Scores Oswestry Neck Score: 23 - Goals Goal 1:: Cervical aROM symmetrical and normal without pain Goal Time Frame: 4-6 Weeks Goal 2:: Pt feel neck pain 75% improved to 2/10 at worst and manageable Goal Time Frame: 4-6 Weeks Goal 3:: Pt tolerate work without increase pain. Goal Time Frame: 4-6 Weeks Goal 4:: I approp HEP to manage symptoms including posture and strenghtening. Goal Time Frame: 4-6 Weeks Goal 5:: <15 neck [id number] score Goal Time Frame: 4-6 Weeks - Rehabilitation Potential Physical Therapy Diagnosis: Degeneration lumbar and cervical spine leading to activity deficits. Rehabilitation Potential: Questionable - Anticipated Interventions Patient/Client Instruction: Educate patient on: Condition, Plan of Care For the Purpose of:: To decrease pain, To increase ROM, To improve muscle performance and motor function, To increase tolerance to activity/condition/position, To improve ability of physical actions for home/community/work/leisure Therapeutic Exercise to Include: Strength training, Postural training, Flexibilty training, Passive ROM, Active ROM, Dynamic Lumbar Stabilization, Scapular Strength/Stabilization For the Purpose of:: To decrease pain, To increase ROM, To improve muscle performance and motor function, To increase tolerance to activity/condition/position, To improve ability of physical actions for home/community/work/leisure Manual Therapy Techniques to Include: Passive ROM, Soft tissue mobilization For the Purpose of:: To decrease pain, To increase ROM TENS: Yes Thermo therapy (hot pack): Yes For the Purpose of:: To decrease pain Thank you for the opportunity to evaluate your patient. For Medicare and Medicare HMO plans, please review the plan of care and approve it. It will need to be FAXED BACK to us at [phone] for Medicare purposes. For Medicare only, by signing this I certify the plan of care. Please let me know if there are questions or concerns regarding this plan of care. Physician Signature: Date:
--- NOTE | 2021-08-28 09:21 | HP.PTDCSUM ---
It has been my pleasure to treat KRISTI MEDRANO referred by Dr. Román Miles MD, with the diagnosis of cervical disc degeneration adn spondylosis. for a total of 10 visit(s). Discharge Date: 08/28/21 Please see the following information for a summary of their discharge status. Subjective: 90% better. L side neck continues to have knot intermittently. Worse in the morning as she toss and turns alot. More sore with air conditioning especially in car. Turning head real far. Turning head in car can be sore. Achy after long day at work. HEP going well at home. Saw Dr. Pugh and will have injection. feels like she can manage neck at home with exercises. Neck pain Pain Intensity (Out of 10): 0 LBP Pain Intensity (Out of 10): 6 % Improvement: 90 Objective/Function: 63 ext, 70 R rot and 73 L rotation , just some achy at end ranges. Much improved posture adn neck movement and patient with confidence that she can continue to progress at home Goal 1:: Cervical aROM symmetrical and normal without pain Goal Progress: Goal Met Goal 2:: Pt feel neck pain 75% improved to 2/10 at worst and manageable Goal Progress: Goal Met Goal 3:: Pt tolerate work without increase pain. Goal Progress: Progressing Goal 4:: I approp HEP to manage symptoms including posture and strenghtening. Goal Progress: Goal Met Goal 5:: <15 neck [id number] score Goal Progress: Goal Met Plan: d/c neck. Pt will contact doctor regarding prescription for LB treatment. If there are questions or concerns regarding this patient's physical therapy, please feel free to call me at [phone]. Thank you for the referral of this patient. Sincerely, Montana Blanco, DPT, OCS, CSCS Balance/Gait/Functional tests - Balance/Special Test Scores Oswestry Neck Score: 9
--- NOTE | 2021-09-09 12:45 | HP.PTEVAL2_ITS ---
Patient's Visit Information KRISTI MEDRANO is a 50 year old F referred to Physical Therapy by Dr. Román Miles MD with a diagnosis of Lumbar degeneration. Date of Evaluation: 09/09/21 Physical Therapist: EDSON LowryT, OCS, CSCS - Visit Plan Frequency: 2x /Week Duration: 4-6 Weeks Plan: 2x/week x 3-4 weeks for... 1. NS strength and lumbar ROM exercises. 2. rollout and stretch hip flexors. 3. progress to home core strength/gy general strength as pain allows. 4. ES with for pain as needed. - Subjective Subjective: Chronic low back pain for a few years and worseing where she needed injections for last few years. They help for a couple months. Had some 6 weeks ago burning the nerve. Pain is 4-10/10.Was bad yesterday as she is helping her friend. She was recently treated for neck which was doing great but did not do exercises over the weekend. May get another injection but insurance has refused it until therapy. Pain is central LB and off to R. No leg symptoms, no numbness or tingling. Standing is worse. Feels better sitting. Recliner at home is uncomfortable. Lying on side feels good, lying on back can hurt. Sleep is worsening and getting 5 hours out of normal 7. 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 No regular exercises at home. - Objective Objective: Walks slow but steady. hesitant to sit or stand too fast. Posture is increased lordosis in lumabr. hip flexors mod tight and HS mod tight. C/o pain with HS stretches in both hamstrings. LB aROM ext mod limited and painful centrally. Max limited segmentally and no pain. SB R painful and L not painful. reflexes 2/3 patella and achilles. Sensation WNL to gross light touch. Strength 4+/5 LE, 4- in core, able to find posterior pelvic tilt quickly but hard to hokd. -SLR, - slump test. - Goals Goal 1:: LB painfree at rest and 2/10 at most 75% improved. Goal Time Frame: 4-6 Weeks Goal 2:: Sleep without interruption at night Goal Time Frame: 4-6 Weeks Goal 3:: I approp management of condition and NS strengthening. Goal Time Frame: 4-6 Weeks Goal 4:: Oswestry score <10 - Rehabilitation Potential Physical Therapy Diagnosis: LB degeneration Rehabilitation Potential: Good - Anticipated Interventions Patient/Client Instruction: Educate patient on: Condition, Plan of Care For the Purpose of:: To decrease pain, To increase ROM, To improve muscle performance and motor function, To increase tolerance to activity/condition/position, To improve ability of physical actions for home/community/work/leisure Therapeutic Exercise to Include: Strength training, Flexibilty training, Gait and locomotor training, Passive ROM, Active ROM, Dynamic Lumbar Stabilization For the Purpose of:: To decrease pain, To increase ROM, To improve muscle performance and motor function, To increase tolerance to activity/condition/position, To improve ability of physical actions for home/community/work/leisure Manual Therapy Techniques to Include: Mobilization, Passive ROM, Soft tissue mobilization For the Purpose of:: To decrease pain, To increase ROM, To improve muscle performance and motor function, To increase tolerance to activity/conditi on/position TENS: Yes Thermo therapy (hot pack): Yes For the Purpose of:: To decrease pain, To increase ROM Thank you for the opportunity to evaluate your patient. For Medicare and Medicare HMO plans, please review the plan of care and approve it. It will need to be FAXED BACK to us at [phone] for Medicare purposes. For Medicare only, by signing this I certify the plan of care. Please let me know if there are questions or concerns regarding this plan of care. Physician Signature:___ Date:
--- NOTE | 2021-10-02 11:22 | HP.PTDCS(2) ---
It has been my pleasure to treat KRISTI MEDRANO referred by Dr. Román Miles MD, with the diagnosis of Lumbar degeneration for a total of 6 visit(s). Discharge Date: 10/02/21 Please see the following information for a summary of their discharge status. Subjective: Getting better. Only thing that bothhers her now is riding in the car long time. Standing in one place. Wants to hold on further therapy, will f/u with doctor and continue exercises at home and will buy ball. Had pain up to 6/10 in LB after long day at work. Did not keep her up at night. HEP going OK for LB and neck has not been problem. To doctor for back injection on 10/09. % Improvement: 80 Objective/Function/Assessment: L/S AROM is slightly painful R side in extension otherwisegood ROM without increased pain. Walks without antalgia but does have pain up steps with R LE trasniently. Overall much better and willing to continue with HEP until doctor f/u next week. Patient Goals: Decrease Pain Goal 1:: LB painfree at rest and 2/10 at most 75% improved. Goal Progress: Progressing Goal 2:: Sleep without interruption at night Goal Progress: Goal Met Goal 3:: I approp management of condition and NS strengthening. Goal Progress: Goal Met Goal 4:: Oswestry score <10 Goal Progress: Not Progressing Plan: d/c to HEP, 80% better and having injection next week. Discharge Comments: Pt to continue via HEP and f/u with doctor for injection next week. If there are questions or concerns regarding this patient's physical therapy, please feel free to call me at [phone]. Thank you for the referral of this patient. Sincerely, Montana Blanco, DPT, OCS, CSCS
== END 2021-10-02 19:00 | disposition home or self-care (01) ==
LOC: PT 10:30
PROVIDERS: PCP Family Medicine; Visit Provider Anesthesiology Pain Medicine
DX: M50.30 Other cervical disc degeneration, unspecified cervical region (principal); M47.812 Spondylosis without myelopathy or radiculopathy, cervical region
CPT/HCPCS: 97014; 97110; 97140; 97161; 97162; 97164; 97530; G0283

== ENCOUNTER 2021-12-10 16:20 | Outpatient (CLI) | payer OTHER, SELFPAY | END 2021-12-10 23:59 | disposition short-term general hospital (02) | PROVIDERS: PCP Family Medicine; Referring Provider Family Medicine; Visit Provider Family Medicine | DX: Z20.822 Contact with and (suspected) exposure to COVID-19 (principal) | CPT/HCPCS: 87635; U0003; U0005 ==

== ENCOUNTER 2022-02-20 18:22 | Emergency (ER) | payer OTHER, SELFPAY ==
[2022-02-20 18:46] VITALS: BP 126/77; PULSE 78; RESP 16; TEMP 35.9; O2SAT 98; BMI 36.6
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
[2022-02-20] MEDS: Morphine 4 MG/ML Syringe IM (21:46)
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
== END 2022-02-20 22:31 | disposition home or self-care (01) ==
PROVIDERS: Emergency Provider Student in an Organized Health Care Education/Training Program; PCP Family Medicine; Visit Provider Student in an Organized Health Care Education/Training Program
DX: S80.12XA Contusion of left lower leg, initial encounter (principal); S80.11XA Contusion of right lower leg, initial encounter; G47.33 Obstructive sleep apnea (adult) (pediatric); V89.2XXA Person injured in unspecified motor-vehicle accident, traffic, initial encounter
CPT/HCPCS: 73590; 96372; 99285

== ENCOUNTER 2022-03-13 13:40 | Emergency (ER) | payer OTHER, SELFPAY ==
[2022-03-13 13:41] VITALS: BP 125/84; PULSE 62; RESP 18; TEMP 36.2; O2SAT 94; BMI 35.6
--- NOTE | 2022-03-13 13:56 | VDLE_ITS ---
Reason For Study: Swelling RIGHT GSV is normal. CFV is compressible, spontaneous, phasic, competent and demonstrates normal augmentation. FV is compressible, spontaneous, phasic, competent and demonstrates normal augmentation. POP V is compressible, spontaneous, phasic, competent and demonstrates normal augmentation. T/P Trunk is compressible. PTV is compressible. RT PerV is compressible. Procedure This is a venous duplex using B-mode, color flow and spectral Doppler. Exam performed portable in ED. A preliminary report was called and/or faxed to [facility]. VL/Venous Duplex US, Unilateral Interpretation Summary There is no evidence of right lower extremity deep vein thrombosis. Right great saphenous vein appears patent and compressible segmentally. Ordering Physician: Sierra Scott Referring Physician: Jesse Carpio MD Performed By: Jena Velázquez RVT
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
== END 2022-03-13 14:36 | disposition home or self-care (01) ==
PROVIDERS: Emergency Provider Emergency Medicine; PCP Family Medicine; Visit Provider Emergency Medicine
DX: S80.11XA Contusion of right lower leg, initial encounter (principal); E78.2 Mixed hyperlipidemia; Z79.899 Other long term (current) drug therapy; G47.33 Obstructive sleep apnea (adult) (pediatric); V89.2XXA Person injured in unspecified motor-vehicle accident, traffic, initial encounter
CPT/HCPCS: 93971; 99282

== ENCOUNTER → 2022-04-10 | Outpatient (CLI) | payer OTHER, SELFPAY | END | disposition home or self-care (01) | PROVIDERS: PCP Family Medicine; Referring Provider Family Medicine; Visit Provider Family Medicine | DX: Z20.822 Contact with and (suspected) exposure to COVID-19 (principal) | CPT/HCPCS: 87633; 87635; U0003; U0005 ==

== ENCOUNTER → 2022-05-08 | Outpatient (CLI) | payer OTHER, SELFPAY ==
[2022-05-08 18:01] LABS: Vitamin B12 525 pg/mL (211-911)
[2022-05-08 18:08] LABS: ALB/GLOB Ratio 1.1 RATIO (0.9-2.4); AST(SGOT) 20 U/L (15-37); Alanine Aminotransfer ALT/SGPT 34 U/L (13-56); Alkaline Phosphatase 96 U/L (45-117); Anion Gap 7 (5-15); BUN 16 mg/dL (7-18); BUN/Creat Ratio 20.5 RATIO (10-20); Calcium,Total 9.2 mg/dL (8.5-10.1); Chloride 103 mmol/L (98-107); Creatinine, Serum 0.78 mg/dL (0.55-1.02); EST Glomerular Filtration Rate 82 mL/min (>60); Est Glom Filt Rate - Afr Amer 100 mL/min (>60); Globulin 3.6 g/dL (2.2-4.2); Glucose 87 mg/dL (74-106); Protein, Total 7.6 g/dL (6.4-8.2); Sodium Level 138 mmol/L (136-145); Thyroid Stim Hormone (TSH) 4.79 uIU/mL (0.358-3.74)
== END | disposition home or self-care (01) ==
LOC: MFPLAB 15:11
PROVIDERS: PCP Family Medicine; Referring Provider Family Medicine; Visit Provider Family Medicine
DX: E53.8 Deficiency of other specified B group vitamins (principal); E78.5 Hyperlipidemia, unspecified; E03.9 Hypothyroidism, unspecified
CPT/HCPCS: 36415; 80053; 82607; 84443

== ENCOUNTER → 2022-08-18 | Outpatient (CLI) | payer OTHER, SELFPAY ==
[2022-08-18 16:37] LABS: T4 Free Direct 1.35 ng/dL (0.76-1.46); Thyroid Stim Hormone (TSH) 2.03 uIU/mL (0.358-3.74)
== END | disposition home or self-care (01) ==
LOC: MFPLAB 13:57
PROVIDERS: PCP Family Medicine; Referring Provider Family Medicine; Visit Provider Family Medicine
DX: E03.9 Hypothyroidism, unspecified (principal)
CPT/HCPCS: 36415; 84439; 84443

== ENCOUNTER → 2022-09-25 | Outpatient (CLI) | payer OTHER, SELFPAY ==
[2022-09-25 11:02] LABS: Cholesterol 180 mg/dL (200); High Density Lipoprotein 69 mg/dL; Triglycerides 76 mg/dL; Very Low Density Lipoprotein 15 mg/dL (5-40)
== END | disposition home or self-care (01) ==
LOC: MFPLAB 08:11
PROVIDERS: PCP Family Medicine; Referring Provider Family Medicine; Visit Provider Family Medicine
DX: E78.5 Hyperlipidemia, unspecified (principal)
CPT/HCPCS: 36415; 80061

== ENCOUNTER → 2023-03-05 | Outpatient (CLI) | payer OTHER, SELFPAY ==
--- NOTE | 2023-03-05 16:02 | RAD_ITS ---
INDICATION: WRIST PAIN EXAMINATION/TECHNIQUE: X-RAY - LEFT XR Wrist Min 3 Views 4 VIEWS COMPARISON: None. FINDINGS: SOFT TISSUES: No soft tissue swelling or gas. No radiopaque foreign body. BONES/JOINTS: Demineralized bones. Normal appearance of the navicular. Normal appearance of the distal radioulnar joint, radiocarpal joint, and carpal arcs. No sclerotic or destructive changes observed. RAD/Wrist min 3 Views IMPRESSION: Demineralized bones. No significant degenerative change. Electronically Signed: Edgar Grande MD at 20:32 EDT ,
== END | disposition home or self-care (01) ==
LOC: MTRAD 16:00
PROVIDERS: PCP Family Medicine; Referring Provider Family Medicine; Visit Provider Family Medicine
DX: M25.532 Pain in left wrist (principal)
CPT/HCPCS: 73110

== ENCOUNTER 2023-05-11 15:53 | Emergency (ER) | payer OTHER, SELFPAY ==
[2023-05-11 15:55] VITALS: BP 113/85; PULSE 98; RESP 16; TEMP 36.2; O2SAT 99; BMI 36.3
--- NOTE | 2023-05-11 16:00 | RAD_ITS ---
STUDY: X-RAY - LEFT SHOULDER REASON FOR EXAM: Female, 52 years old. trauma TECHNIQUE: 4 view(s) of the shoulder. COMPARISON: None. FINDINGS: There is mild degenerative arthrosis of the glenohumeral articulation. There is degenerative arthrosis of the acromioclavicular joint without inferior osseous spur formation. Normal acromion. There is demineralization of the humerus and visualized osseous structures. The soft tissue structures are unremarkable. Normal visualized pulmonary apex. RAD/Shoulder min 2 Views IMPRESSION: No evidence of acute osseous injury. Electronically Signed: Seamus Garber DO at 16:29 EDT ,
[2023-05-11 17:14] VITALS: BP 101/76; PULSE 77; RESP 16; O2SAT 94
--- NOTE | 2023-05-11 17:50 | EX.ED.GENINJ ---
HPI History of Present Illness Chief Complaint: Head Injury Narrative Narrative: Patient presents with injury to left shoulder and head. Patient was putting together a bed last night at home. One of the metal rails slid when it was leaning against the wall. One of them hit her shoulder and one hit her head. No loss of consciousness. She has soreness in those areas. Today when she was out shopping she felt nauseated and a little unsteady and just did not feel right. This prompted her to come in. [facility] Medical History Anxiety Benzodiazepine overdose Cardiac murmur Depression Dysmenorrhea Menorrhagia Mixed hyperlipidemia Nonrheumatic mitral (valve) prolapse MARLYN on CPAP PTSD (post-traumatic stress disorder) Sinus bradycardia Sinusitis Suicidal overdose Suicidal overdose Home Medications sennosides 8.6 mg tablet 1 tab PO BID PRN Constipation 11/17/16 [History Last Taken Unknown] trazodone 100 mg tablet 200 mg PO QHS 11/17/16 [History Last Taken Unknown] pravastatin 40 mg tablet 40 mg PO QHS 03/28/17 [History Last Taken Unknown] fluticasone propionate 50 mcg/actuation nasal spray,suspension (Allergy Relief (fluticasone)) 2 spray intranasal DAILY 12/27/18 [History Last Taken Unknown] lisdexamfetamine 30 mg capsule (Vyvanse) 40 mg PO QAM 12/27/18 [History Last Taken Unknown] omeprazole 20 mg tablet,delayed release 20 mg PO DAILY 12/27/18 [History Last Taken Unknown] levothyroxine 100 mcg tablet See Rx Instructions .Route .COMPLEX 03/02/20 [History Last Taken Unknown] oxycodone-acetaminophen 5 mg-325 mg tablet (Percocet) 1 tab PO Q6H PRN Pain 06/28/21 [History Last Taken Unknown] methylprednisolone 4 mg tablets in a dose pack mg 06/29/21 [History Last Taken Unknown] fluoxetine 20 mg capsule 20 mg PO DAILY 03/13/22 [History Last Taken Unknown] gabapentin 400 mg capsule 03/13/22 [History Last Taken Unknown] Allergy/AdvReac Type Severity Reaction Status Date / Time adhesive tape AdvReac Rash Verified 05/11/23 15:57 Dressing: Non-Medicated AdvReac Rash Verified 05/11/23 15:57 [bandaids] Family History Sister Hypertension Myocardial infarction Sister Heart disease Hypertension Grandmother CVA (cerebral vascular accident) Heart disease Brother Hypertension Father CVA (cerebral vascular accident) Sister Hypertension Sister Hypertension Mother Heart disease Surgical History History of carpal tunnel surgery History of hysterectomy Social History Smoking Status: Never smoker alcohol intake: never substance use type: does not use ROS ROS ED Constitutional Constitutional ED: Denies chills or fever(s) Eyes Eyes: Denies blurry vision, change in vision or other ENT ENT ED: Denies rhinorrhea Cardiovascular Cardiovascular: Denies chest pain Respiratory/Chest Respiratory/Chest: Denies cough or dyspnea Gastrointestinal Gastrointestinal: Reports nausea; Denies vomiting Musculoskeletal Musculoskeletal: Reports arthralgias, myalgias and neck pain Integumentary Reports other Details: Contusion left shoulder ; Denies rash Neurologic Neurologic: Reports headache(s); Denies paresthesias or weakness Hematologic/Lymphatic Hematologic/Lymphatic: Denies easy bleeding or easy bruising EXAM Physical Exam Narrative Exam Narrative: Patient is awake alert sitting comfortably in bed no acute distress carries on normal conversation. HEENT does show contusion of the posterior aspect of the head but no laceration. Neck shows no focal bony tenderness. She does have chronic neck issues and is sore all the time but this is really baseline. Chest shows normal breathing normal saturations at 99% on room air showing no hypoxia. Lungs are clear bilaterally. No subcutaneous air. Heart is regular. No murmur gallop or rub. Peripheral pulses are equal. Abdomen is benign. Extremities do show a contusion to the left superior posterior aspect of the shoulder consistent with her injury. But range of motion is good. No clinical indication of dislocation at all. Const Vital Signs: 05/11/23 15:55 05/11/23 17:00 05/11/23 17:14 Temperature 97.1 F L Temperature Source Temporal Pulse Rate 98 77 Respiratory Rate 16 16 Respiratory Effort Normal Non-Labored Respiratory Depth Normal Respiratory Pattern Normal Blood Pressure 113/85 H 101/76 Blood Pressure Mean 94 84 Pulse Ox 99 94 Oxygen Delivery Method Room Air Room Air Room Air 05/11/23 17:51 Temperature Temperature Source Pulse Rate 67 Respiratory Rate 16 Respiratory Effort Respiratory Depth Respiratory Pattern Blood Pressure 101/76 Blood Pressure Mean 84 Pulse Ox 93 Oxygen Delivery Method Room Air MDM MDM MDM Narrative Medical decision making narrative: My independent interpretation the patient's 4 view x-ray left shoulder shows no acute fracture. Final reading is no evidence of acute osseous injury. My independent interpretation the patient's CT scan of the head shows no acute process which is consistent with final reading. They do note some chronic ethmoidal mucosal thickening greater on the right than the left but this I do not think is related to her injury. I think patient is okay to go. She has meds at home. I think ice rest and meds that she has available will be appropriate. We discussed reasons to return. Radiography Diagnostic Testing: Clinical Impression(s) from Imaging Studies Shoulder X-Ray 05/11/23 16:00 IMPRESSION: No evidence of acute osseous injury. Electronically Signed: Seamus Garber DO at 16:29 EDT , Brain CT 05/11/23 18:02 IMPRESSION: 1. Stable exam 2. No intracranial evidence of acute traumatic injury. 3. No intracranial mass, hemorrhage or acute territorial infarct. 4. No craniofacial fractures noted. 5. Chronic ethmoid mucosal thickening greater on the RIGHT than LEFT.. Electronically Signed: Gigi Wallace MD at 18:39 EDT , Discharge Plan Triage Chief Complaint: Head Injury ED Provider: Pernell Contreras Dx/Rx/DC Orders Clinical Impression: Contusion of left shoulder, initial encounter, Contusion of head Instructions: ED Head Injury (Adult), ED Shoulder Contusion Prescriptions: No Action Vyvanse 30 mg capsule 40 mg PO QAM fluticasone propionate [Allergy Relief (fluticasone)] 50 mcg/actuation spray,suspension 2 spray INTRANASAL DAILY omeprazole 20 mg tablet,delayed release (DR/EC) 20 mg PO DAILY levothyroxine 100 mcg tablet See Rx Instructions .ROUTE .COMPLEX Rx Instructions: 150 mcg orally -thu; 300mcg thursday sennosides 1 TABLET tablet 1 tab PO BID PRN (Reason: Constipation) trazodone 100 MG tablet 200 mg PO QHS pravastatin 40 MG tablet 40 mg PO QHS Label Comments: TAKE 1 TABLET BY MOUTH ONCE DAILY oxycodone-acetaminophen [Percocet] 5-325 mg Tablet 1 tab PO Q6H PRN (Reason: Pain) methylprednisolone 4 mg tablets,dose pack gabapentin 400 mg capsule Label Comments: TAKE 1 CAPSULE BY MOUTH THREE TIMES DAILY fluoxetine 20 mg capsule 20 mg PO DAILY Label Comments: TAKE 2 CAPSULES BY MOUTH IN THE MORNING AND 1 CAPSULE NIGHTLY Primary Care Provider: Conner Carpio Referrals: Conner Carpio MD [Primary Care Provider] - 3-5 Days if not improving Disposition Disposition: Home, Self Care
[2023-05-11 17:51] VITALS: BP 101/76; PULSE 67; RESP 16; O2SAT 93
--- NOTE | 2023-05-11 18:02 | CT_ITS ---
INDICATION: Trauma EXAMINATION: CT BRAIN - CT Head or Brain W/O Contrast Injection TECHNIQUE: Multiple axial images were obtained of the head without intravenous contrast. A radiation dose optimization technique was used for this scan. IV Contrast dosage and agent: None. RADIATION DOSAGE (If Supplied By Facility): CTDIvol = ( 44.99 ) mGy, DLP = ( 846.73 ) mGycm COMPARISON: 05/12/2021 FINDINGS: HEMISPHERES: 1. The cerebral parenchyma, ventricular system, subarachnoid spaces have normal configuration and density. There is a normal gyral pattern. There is normal puga/white differentiation. No midline shift.. 2. The hemispheric white matter has normal appearance. 3. No intraparenchymal mass, hemorrhage, or acute territorial infarct. CEREBELLUM - BRAINSTEM: The cerebellum, brainstem, basilar and suprasellar cisterns have normal appearance. No Chiari malformation. PITUITARY: Infundibulum and pituitary have normal configuration. Midline structures appear normal. CSF SPACES: Appropriate for age. No hydrocephalus. Basal cisterns are patent. VESSELS: 1. No significant vascular calcifications in the cavernous carotid vessels. 2. No hyperdense vascular signs noted.. ORBITS AND PARANASAL SINUSES: 1. Normal appearance of the bony orbits. Normal appearance of the globes and retrobulbar soft tissues.. 2. Minimal mucosal thickening in the ethmoid complexes greater on the RIGHT than LEFT. BONY ELEMENTS: Bony elements of the cranial vault, facial skeleton and skull base have normal appearance. SCALP AND SOFT TISSUES: Normal appearance of the soft tissues of the scalp and the visualized face OTHER: None ASPECTS Score for Acute Strokes: 10 CT/Brain/Head without Contrast IMPRESSION: 1. Stable exam 2. No intracranial evidence of acute traumatic injury. 3. No intracranial mass, hemorrhage or acute territorial infarct. 4. No craniofacial fractures noted. 5. Chronic ethmoid mucosal thickening greater on the RIGHT than LEFT.. Electronically Signed: Gigi Wallace MD at 18:39 EDT ,
[2023-05-11 19:55] VITALS: BP 108/57; PULSE 69; RESP 13; O2SAT 97
== END 2023-05-11 19:55 | disposition home or self-care (01) ==
PROVIDERS: Emergency Provider Emergency Medicine; PCP Family Medicine; Visit Provider Emergency Medicine
DX: S40.012A Contusion of left shoulder, initial encounter (principal); S00.93XA Contusion of unspecified part of head, initial encounter; G47.33 Obstructive sleep apnea (adult) (pediatric); X58.XXXA Exposure to other specified factors, initial encounter
CPT/HCPCS: 70450; 73030; 99282

== ENCOUNTER → 2023-06-18 | Outpatient (CLI) | payer OTHER, SELFPAY ==
--- NOTE | 2023-06-18 09:26 | RAD_ITS ---
INDICATION: PAIN EXAMINATION/TECHNIQUE: X-RAY - XR Hips Bilateral with Pelvis when performed; 2 Views COMPARISON: None. FINDINGS: PELVIC BONES: No displaced fracture, destructive or sclerotic lesions. Note that overlapping bowel shadows may however obscure fine detail. Sacroiliac joints are unremarkable. No widening of the pubic symphysis. HIPS: The articular structures are unremarkable. No displaced fracture seen in this frontal view. SOFT TISSUES: No soft tissue swelling or gas. RAD/Hips B/L min 2 views w/ Pelvis IMPRESSION: Unremarkable plain film evaluation of the pelvis and bilateral hips. Electronically Signed: Olman Diaz MD at 0:30 EDT ,
== END | disposition home or self-care (01) ==
LOC: MTRAD 09:20
PROVIDERS: PCP Family Medicine; Visit Provider Anesthesiology Pain Medicine
DX: M25.551 Pain in right hip (principal); M25.552 Pain in left hip
CPT/HCPCS: 73521

== ENCOUNTER → 2023-07-14 | Outpatient (CLI) | payer OTHER, SELFPAY ==
--- NOTE | 2023-07-14 11:00 | RAD_ITS ---
INDICATION: PAIN EXAMINATION/TECHNIQUE: X-RAY - RIGHT XR Knee 3 Views 3 VIEWS COMPARISON: Prior study dated: August 03, 2017 FINDINGS: SOFT TISSUES: No soft tissue swelling or gas. No radiopaque foreign body. BONES/JOINTS: No acute fracture or subluxation.. There is lateral patellar tilt. There are degenerative changes about the patellofemoral articulation.. No sclerotic or destructive changes observed. RAD/Knee 3 Views IMPRESSION: Lateral patellar tilt. Degenerative changes. Electronically Signed: Hien Weinstein MD at 9:00 EDT ,
== END | disposition home or self-care (01) ==
LOC: MTRAD 10:57
PROVIDERS: PCP Family Medicine; Referring Provider Nurse Practitioner Acute Care; Visit Provider Nurse Practitioner Acute Care
DX: M25.561 Pain in right knee (principal)
CPT/HCPCS: 73562

== ENCOUNTER → 2023-09-07 | Outpatient (CLI) | payer OTHER, SELFPAY | END | disposition home or self-care (01) | LOC: LABSPEC 09:50 | PROVIDERS: PCP Family Medicine; Referring Provider Family Medicine; Visit Provider Family Medicine | DX: J02.9 Acute pharyngitis, unspecified (principal) | CPT/HCPCS: 87070 ==

== ENCOUNTER → 2023-11-11 | Outpatient (CLI) | payer OTHER, SELFPAY ==
[2023-11-11 10:22] LABS: Hematocrit 42.6 % (37-47); Hemoglobin 13.2 g/dL (12.0-15.0); Mean Corpuscular Hgb 29.7 pg (27.0-32.0); Mean Corpuscular Volume 95.9 fL (81-99); Mean Platelet Vol. 10.2 fl (6.2-12.0); Platelet Count 337 K/mm3 (150-450); RBC Distribution Width SD 46.4 fl (35.1-43.9); Red Blood Count 4.44 M/mm3 (4.2-5.4); White Blood Count 5.7 K/mm3 (4.4-11.0)
[2023-11-11 10:47] LABS: Vitamin B12 666 pg/mL (211-911); Vitamin D,25 Hydroxy 42.3 ng/mL
[2023-11-11 11:20] LABS: ALB/GLOB Ratio 1.1 RATIO (0.9-2.4); AST(SGOT) 27 U/L (15-37); Alanine Aminotransfer ALT/SGPT 51 U/L (13-56); Albumin, Serum 3.8 g/dL (3.2-5.0); Alkaline Phosphatase 86 U/L (45-117); Anion Gap 4 (5-15); BUN 12 mg/dL (7-18); BUN/Creat Ratio 16.7 RATIO (10-20); Calcium,Total 9.3 mg/dL (8.5-10.1); Chloride 110 mmol/L (98-107); Cholesterol 178 mg/dL (200); Creatinine, Serum 0.72 mg/dL (0.55-1.02); EST Glomerular Filtration Rate 91 mL/min (>60); Est Glom Filt Rate - Afr Amer 110 mL/min (>60); Ferritin 179 ng/mL (8-252); Globulin 3.5 g/dL (2.2-4.2); Glucose 99 mg/dL (74-106); High Density Lipoprotein 56 mg/dL; Iron 95 ug/dL (50-170); Protein, Total 7.3 g/dL (6.4-8.2); Sodium Level 141 mmol/L (136-145); Thyroid Stim Hormone (TSH) 0.58 uIU/mL (0.358-3.74); Triglycerides 94 mg/dL; Very Low Density Lipoprotein 19 mg/dL (5-40)
== END | disposition home or self-care (01) ==
LOC: MFPLAB 09:08
PROVIDERS: PCP Family Medicine; Visit Provider Family Medicine
DX: D64.9 Anemia, unspecified (principal); E55.9 Vitamin D deficiency, unspecified; R73.01 Impaired fasting glucose
CPT/HCPCS: 36415; 80053; 80061; 82306; 82607; 82728; 83540; 84443; 85027

== ENCOUNTER → 2024-01-27 | Outpatient (CLI) | payer OTHER, SELFPAY ==
--- NOTE | 2024-01-27 16:16 | RAD_ITS ---
EXAM: XR LEFT KNEE COMPLETE, 4 OR MORE VIEWS CLINICAL INDICATION: FALL WITH INJURY TECHNIQUE: Four or more views of the left knee. COMPARISON: No relevant prior studies available. FINDINGS: BONES/JOINTS: Unremarkable. No acute fracture. No subluxation. Normal alignment. Preservation of the joint space. No sclerotic or destructive changes observed. SOFT TISSUES: Unremarkable. No soft tissue swelling or gas. No radiopaque foreign body. RAD/Knee 4 or More Views IMPRESSION: Negative left knee x-rays. Electronically Signed: Olman Diaz MD at 23:40 EST ,
--- NOTE | 2024-01-27 16:16 | RAD_ITS ---
EXAM: XR RIGHT KNEE COMPLETE, 4 OR MORE VIEWS CLINICAL INDICATION: FALL WITH INJURY TECHNIQUE: Four or more views of the right knee. COMPARISON: No relevant prior studies available. FINDINGS: BONES/JOINTS: Unremarkable. No acute fracture. No subluxation. Normal alignment. Preservation of the joint space. No sclerotic or destructive changes observed. SOFT TISSUES: Unremarkable. No soft tissue swelling or gas. No radiopaque foreign body. RAD/Knee 4 or More Views IMPRESSION: Negative right knee x-rays. Electronically Signed: Olman Diaz MD at 7:48 EST ,
== END | disposition home or self-care (01) ==
LOC: MTRAD 16:14
PROVIDERS: PCP Family Medicine; Referring Provider Family Medicine; Visit Provider Family Medicine
DX: S89.91XA Unspecified injury of right lower leg, initial encounter (principal); S89.92XA Unspecified injury of left lower leg, initial encounter; W19.XXXA Unspecified fall, initial encounter
CPT/HCPCS: 73564

== ENCOUNTER → 2024-11-18 | Outpatient (CLI) | payer OTHER, SELFPAY ==
[2024-11-18 12:50] LABS: Vitamin D,25 Hydroxy 29.6 ng/mL
[2024-11-18 12:59] LABS: AST(SGOT) 14 U/L (15-37); Alanine Aminotransfer ALT/SGPT 31 U/L (13-56); Albumin, Serum 3.7 g/dL (3.2-5.0); Alkaline Phosphatase 97 U/L (45-117); Anion Gap 1 (5-15); BUN 15 mg/dL (7-18); BUN/Creat Ratio 17.2 RATIO (10-20); Calcium,Total 9.4 mg/dL (8.5-10.1); Chloride 107 mmol/L (98-107); Cholesterol 203 mg/dL (200); Creatinine, Serum 0.87 mg/dL (0.55-1.02); EST Glomerular Filtration Rate 72 mL/min (>60); Est Glom Filt Rate - Afr Amer 87 mL/min (>60); Globulin 3.8 g/dL (2.2-4.2); Glucose 112 mg/dL (74-106); High Density Lipoprotein 69 mg/dL; Potassium 4.2 mmol/L (3.5-5.1); Protein, Total 7.5 g/dL (6.4-8.2); Sodium Level 140 mmol/L (136-145); Triglycerides 166 mg/dL; Very Low Density Lipoprotein 33 mg/dL (5-40)
== END | disposition home or self-care (01) ==
LOC: MFPLAB 10:23
PROVIDERS: PCP Family Medicine; Referring Provider Family Medicine; Visit Provider Family Medicine
DX: E78.5 Hyperlipidemia, unspecified (principal); E55.9 Vitamin D deficiency, unspecified; E03.9 Hypothyroidism, unspecified
CPT/HCPCS: 36415; 80053; 80061; 82306; 84443

== ENCOUNTER → 2024-11-22 | Outpatient (CLI) | payer OTHER, SELFPAY ==
--- NOTE | 2024-11-22 09:43 | RAD_ITS ---
STUDY: X-RAY - CERVICAL SPINE REASON FOR EXAM: Female, 53 years old. cervical disc degeneration TECHNIQUE: 7 view(s) of the cervical spine were obtained. COMPARISON: 06/02/2019 FINDINGS: Normal anterior atlantoaxial articulation. Normal odontoid process. Normal cervical lordosis. No subluxation on the flexion-extension views to suggest instability. There is multi-level endplate spondylosis. There is multi-level degenerative disc disease with multilevel disc space narrowing. Normal visualized intervertebral neuroforamina. The soft tissue structures are unremarkable. RAD/Cerv Spine Obl/Flex/Ext Comp IMPRESSION: Degenerative disc disease lower cervical spine. No instability. Electronically Signed: Gigi Swenson MD at 23:12 EST ,
== END | disposition home or self-care (01) ==
LOC: MTRAD 09:41
PROVIDERS: PCP Family Medicine; Referring Provider Anesthesiology Pain Medicine; Visit Provider Anesthesiology Pain Medicine
DX: M50.30 Other cervical disc degeneration, unspecified cervical region (principal)
CPT/HCPCS: 72052

== ENCOUNTER → 2025-07-17 | Outpatient (CLI) | payer OTHER, SELFPAY ==
--- NOTE | 2025-07-17 14:43 | RAD_ITS ---
PROCEDURE: L/S SPINE COMP/W BENDING VIEWS 07/17/2025 REASON FOR EXAM: LUMBAR DEGENERATIVE DISC DISEASE TECHNIQUE: L/S SPINE COMP/W BENDING VIEWS COMPARISON: None FINDINGS: 6 views of the lumbosacral spine were obtained. There is normal mineralization of the osseous structures. There are no fractures of the sacrum. There are 5 lumbar-type vertebral bodies below the last set of paired ribs. The vertebral body heights are within normal limits. There is no spondylolysis. There is approximately 4 mm of anterolisthesis of L4 in relationship to L5. There is no instability on the flexion or extension views. The remaining alignment of the vertebral bodies is within normal limits. Very mild spondylosis is noted involving the lumbar spine. There is disc space narrowing involving the L5-S1 disc space. There is some bony encroachment on the neural foramina at this level. The remaining disc spaces are well-maintained. The paravertebral structures are grossly unremarkable. RAD/L/S Spine Comp/w Bending Views IMPRESSION: 4 mm of anterolisthesis of L4 in relationship to L5. There is no instability o n the flexion or extension views. Degenerative disc disease involving the L5-S1 disc. Reading Location: [id number]
--- OUTSIDE RECORDS SUMMARY | 2025-07-17 15:18 | XMS RPT_ITS | CCD ---
Author Organization [facility] Partnership [facility] Care Team Providers Care Hvac Sales Engineer Name Role Phone LAURA BARNETT, DR INGRAM Primary Care Physician Results Test Name Value Interpretation Reference Range Facil ity MRI LUMBAR SPINE WO IVCONon 12-23-2021 MRI LUMBAR SPINE WO IVCON * * *Final Report* * * DATE OF EXAM: Dec 23 2021 11:08AM [id number] - MRI LUMBAR SPINE WO IVCON / PROCEDURE REASON: M51.37 * * * * Physician Interpretation * * * * EXAMINATION: MRI LUMBAR SPINE WO IVCON CLINICAL HISTORY: M51.37 low back pain radiating into right leg. TECHNIQUE: Routine lumbosacral spine MR protocol without gadolinium. MQ: [id number] COMPARISON: None. RESULT: Counting reference: Lumbosacral junction. For the purposes of this report, L4-5 is considered the level of the iliac crest and assume there are 5 lumbar-type vertebrae. Anatomic variant: None. Localizer images: Unremarkable. Alignment: Moderate loss of disc height at L5-S1 reflecting degeneration. Bone marrow signal/fracture: There are type II endplate changes along the left half of L5-S1. No evidence of pathologic marrow infiltration. No evidence of prior fracture. Conus: The conus is within normal limits of signal intensity and morphology terminating at L1-L2. Nerve roots are normal in appearance. Paraspinal soft tissues: Paraspinal soft tissues are within normal limits. Lower thoracic spine: Visualized lower thoracic canal and foramina are patent. T12-L1: Canal and foramina are patent. L1-L2: Canal and foramina are patent. L2-L3: Canal and foramina are patent L3-L4: Canal and foramina are patent L4-L5: Canal and foramina are patent. Hypertrophic changes in the facet joints. L5-S1: Mild narrowing the spinal canal due to disc osteophyte complex. Mild left neural foraminal stenosis. Right neural foramen is patent. Sacrum and iliac wings: The visualized sacrum and iliac wings are within normal limits. IMPRESSION: Degenerative disc disease at L5-S1 with resultant mild left L5-S1 neural foraminal stenosis. No focal protrusion or extrusion on the study. Anatomic Thoracic/Lumbar Variant: None. L4-5 is considered the level of the iliac crest and assume there are 5 lumbar-type vertebrae. Motorcycle Sales Associate: PSCB Transcribe Date/Time: Dec 23 2021 12:50P Dictated by : JOAQUIN TREJO MD This examination was interpreted and the report reviewed and electronically signed by: JOAQUIN TREJO MD on Dec 23 2021 12:53PM EST [id number] N Normal [facility] XR SPINE LUMBOSACRAL 2 OR 3 VIEWSon 09-09-2021 XR SPINE LUMBOSACRAL 2 OR 3 VIEWS ORIGINAL EXAMINATION: THREE XRAY VIEWS OF THE LUMBAR SPINE 09/07/2021 3:24 pm COMPARISON: None. HISTORY: ORDERING SYSTEM PROVIDED HISTORY: Reason for Exam: LOW BACK PAIN FINDINGS: There are 5 lumbar type vertebral bodies with grade 1 anterolisthesis L4 on L5 and mild retrolisthesis L5 on S1. Alignment is otherwise maintained. Vertebral body heights are preserved. There is disc space narrowing with osteophyte formation at L5-S1. The remaining discs are maintained. There are small osteophytes near the thoracolumbar junction. The SI joints are not abnormally widened. There is a large amount of stool in the right colon. IMPRESSION: Mild degenerative changes, greatest at the lumbosacral junction. Interpreted by: Hailey Talley MD Preliminary Report By: Hailey Talley MD Electronically signed By Hailey Talley MD Dictated Date: 09/09/2021 3:16:12 PM Prelim Date: 09/09/2021 3:17:34 PM Sign Date: 09/09/2021 3:17:34 PM Ordering Provider: JOSE ALFREDO REFERRING [facility] ([place]) Encounters Encounter Date Encounter Type Care Provider Facility Start: 09-07-2021 End: 09-07-2021 Patient encounter procedure ROBERTY WO ID REFERRING [facility] Social History Date Type Detail Facility [facility] Sex Assigned At Female [facility] Progress note 12-23-2021 Note Date & Type Note Facility 12-23-2021 Note HNO ID: [id number] Author: RT Marcel(R) Service: ? Author Type: Technologist Type: Progress Notes Filed: 12/23/2021 10:42 AM Note Text: Radiology Service Progress Note PATIENT NAME: Tal Gomez DATE OF SERVICE: December 23, 2021 TIME: 10:42 AM PATIENT IDENTITY VERIFICATION COMPLETED USING TWO (2) IDENTIFIERS: Name and Date of confirmed by patient verbally. FALL SCREENING: Has the patient had 2 falls in the last year or 1 fall with injury or currently using an Ambulatory Assistive Device (Walker, Cane, Wheelchair, Crutches, etc.)? No PATIENT GENDER DATA: Female. status: : No status: NO. PATIENT RELEVANT IMPLANT DATA REVIEWED: Yes RADIOLOGY DEPARTMENT: MR; Exam(s) Completed: Spine: Lumbar spine PERIPHERAL IV DATA: Not applicable SIGNED BY: RT Marcel(R) December 23, 2021 10:42 AM [facility] Evaluation + Plan note Note Date & Type Note Facility Evaluation + Plan note No data available for this section [facility] Hospital Discharge instructions Note Date & Type Note Facility Hospital Discharge instructions No data available for this section [facility] Summary Purpose Family History No Family History Records FoundNo Family History Records Found Advance Directives No Advanced Directives Records FoundNo Advanced Directives Records Found Additional Source Comments INFORMATION SOURCE (unrecogn ized section and content) DATE CREATED AUTHOR 09/10/2021 [facility] ([place]) DATE CREATED AUTHOR AUTHOR'S ORGANIZ ATION 02/14/2022 [facility] FOR RECORDS PERTAINING TO PATIENTS WHO ARE OR HAVE BEEN ENROLLED IN A CHEMICAL DEPENDENCY/SUBSTANCEABUSE PROGRAM, SOME INFORMATION MAY BE OMITTED. This clinical summary was aggregated from multiple sources. Caution should be exercised in using it in the provision of clinical care. This summary normalizes information from multiple sources, and as a consequence, information in this document may materially change the coding, format and clinical context of patient data. In addition, data may be omitted in some cases. CLINICAL DECISIONS SHOULD BE BASED ON THE PRIMARY CLINICAL RECORDS. [facility]. provides no warranty or guarantee of the accuracy or completeness of information in this document.
== END | disposition home or self-care (01) ==
PROVIDERS: PCP Family Medicine; Referring Provider Anesthesiology Pain Medicine; Visit Provider Anesthesiology Pain Medicine
DX: M51.369 Other intervertebral disc degeneration, lumbar region without mention of lumbar back pain or lower extremity pain (principal)
CPT/HCPCS: 72114

== ENCOUNTER → 2025-07-20 | Outpatient (CLI) | payer OTHER, SELFPAY ==
[2025-07-20 18:15] LABS: Anion Gap 10 (5-15); BUN 13 mg/dL (4-19); BUN/Creat Ratio 19.0 RATIO (10-20); Calcium,Total 9.4 mg/dL (7.6-11.0); Carbon Dioxide 26.1 mmol/L (21.0-32.0); Chloride 105 mmol/L (98-108); Glucose 93 mg/dL (70-99); Potassium 4.3 mmol/L (3.3-5.1)
== END | disposition home or self-care (01) ==
LOC: MTLAB 16:07
PROVIDERS: PCP Family Medicine; Referring Provider Anesthesiology Pain Medicine; Visit Provider Anesthesiology Pain Medicine
DX: Z79.01 Long term (current) use of anticoagulants (principal); Z79.1 Long term (current) use of non-steroidal anti-inflammatories (NSAID)
CPT/HCPCS: 36415; 80048

== ENCOUNTER → 2025-08-21 | Outpatient (CLI) | payer OTHER, SELFPAY ==
--- NOTE | 2025-08-21 15:32 | RAD_ITS ---
PROCEDURE: ANKLE MIN 3 VIEWS 08/21/2025 REASON FOR EXAM: ANKLE INJURY TECHNIQUE: Procedure Code: RADANK Modality: DX Procedure: ANKLE MIN 3 VIEWS Laterality: Left COMPARISON: None. FINDINGS: There is no evidence of fracture or dislocation. There are no significant joint space abnormalities. There are no significant soft tissue abnormalities. RAD/Ankle min 3 Views IMPRESSION: NO ACUTE FRACTURE OR DISLOCATION. Reading Location: [place] [id number]
== END | disposition home or self-care (01) ==
LOC: MTRAD 15:32
PROVIDERS: PCP Family Medicine; Referring Provider Physician Assistant; Visit Provider Physician Assistant
DX: S99.912A Unspecified injury of left ankle, initial encounter (principal)
CPT/HCPCS: 73610

== ENCOUNTER → 2025-10-11 | Outpatient (CLI) | payer OTHER, SELFPAY ==
[2025-10-11 11:18] LABS: AST(SGOT) 18 U/L (<=31); Alanine Aminotransfer ALT/SGPT 21 U/L (<=34); Albumin, Serum 4.4 g/dL (3.5-5.0); Alkaline Phosphatase 79 U/L (35-104); Anion Gap 9 (5-15); BUN 12 mg/dL (4-19); BUN/Creat Ratio 15.9 RATIO (10-20); Calcium,Total 9.7 mg/dL (7.6-11.0); Carbon Dioxide 28.4 mmol/L (21.0-32.0); Chloride 106 mmol/L (98-108); Cholesterol 193 mg/dL (<=200); Globulin 2.9 g/dL (2.2-4.2); Glucose 106 mg/dL (70-99); Low Density Lipoprotein Calc. 109 mg/dL; Potassium 4.1 mmol/L (3.3-5.1); Triglycerides 100 mg/dL; Very Low Density Lipoprotein 20 mg/dL (5-40); Vitamin B12 414 pg/mL (180-914); Vitamin D,25 Hydroxy 35.0 ng/mL (30-100); cholesterol:hdl ratio screen 2.93
== END | disposition home or self-care (01) ==
LOC: MFPLAB 08:36
PROVIDERS: PCP Family Medicine; Visit Provider Family Medicine
DX: E03.9 Hypothyroidism, unspecified (principal); R73.01 Impaired fasting glucose
CPT/HCPCS: 36415; 80053; 80061; 82306; 82607; 84443

== ENCOUNTER 2025-11-13 04:41 | Emergency (ER) | payer OTHER, SELFPAY ==
[2025-11-13 04:43] VITALS: BP 141/62; PULSE 73; RESP 16; TEMP 36.3; O2SAT 93; BMI 36.0
--- NOTE | 2025-11-13 05:02 | EDS_ITS ---
HPI History of Present Illness Chief Complaint: Other, Pain/Inj Detail of Chief Complaint: neck pain Informant: patient and spouse/S.O. Narrative Narrative: Patient is a 54-year-old female with a history of spinal stenosis and arthritis presenting with severe neck pain. - Reports severe neck pain for the past 4-5 days, described as throbbing and feeling like veins are about to burst. - Denies any known trauma or injury. - Pain is exacerbated by raising arms, turning the neck, lying back, and lying on the side; unable to turn neck fully due to pain. - Pain is different from previous episodes, stating, I've never had it throbbing like this before. - Associated symptoms include difficulty lifting objects and using hands to support head due to pain in neck. - Denies numbness or weakness in arms or legs. - Has received injections for spinal stenosis, most recently about a month ago, but did not experience this type of pain at that time. - Pain has been so severe that she had difficulty getting out of bed this morning, requiring assistance to move legs and pull herself up. [facility] Medical History GERD (gastroesophageal reflux disease) Hypothyroidism Spinal stenosis PTSD (post-traumatic stress disorder) Cardiac murmur Mixed hyperlipidemia MARLYN on CPAP Suicidal overdose Depression Anxiety Nonrheumatic mitral (valve) prolapse Sinus bradycardia Suicidal overdose Benzodiazepine overdose Home Medications ?Medication ?Instructions ?Recorded ?Last Taken ?Type trazodone 100 mg tablet 200 mg PO QHS 11/17/16 Unkno wn History pravastatin 40 mg tablet 40 mg PO QHS 03/28/17 Unknow n History fluticasone propionate 50 2 spray intranasal DAILY 03/11 Unknown History mcg/actuation nasal spray,suspension (Allergy Relief (fluticasone)) lisdexamfetamine 30 mg capsule 40 mg PO QAM 12/27/18 U nknown History (Vyvanse) nabumetone 750 mg tablet 750 mg PO BID 08/21/25 Unkno wn History fluoxetine 20 mg capsule 40 mg PO DAILY 10/30/25 Unkn own History hydroxyzine pamoate 50 mg capsule 50 mg PO 4X/DAY PRN anxiety 10/30/25 Unknown History levothyroxine 150 mcg tablet 150 mcg PO DAILY 10/30/25 Unknown History (Synthroid) montelukast 10 mg tablet 10 mg PO QDAY 10/30/25 Unkno wn History omeprazole 40 mg capsule,delayed 40 mg PO DAILY Unknown History release rimegepant 75 mg disintegrating 75 mg PO ONCE PRN migr chelsy headache 10/30/25 Unknown History tablet (Nurtec ODT) cholecalciferol (vitamin D3) 50 50 mcg PO QDAY 5 Unknown History mcg (2,000 unit) capsule orphenadrine citrate 100 mg 100 mg PO Q12H PRN muscle pain #6 11/13/25 Unknown Rx tablet,extended release tabs tramadol 50 mg tablet 50 mg PO Q6H PRN pain 2 days #8 11/13/25 Unknown Rx tabs Allergy/AdvReac Type Severity Reaction Status Date / Time bee venom protein (honey Allergy Severe Angioedema Verified 11/13/25 04:48 bee) (bee stings) bupropion (From Wellbutrin) Allergy Severe Nightmares Verified 11/13/25 04:48 sertraline (From Zoloft) Allergy Intermediate Nausea/Vom/ Verified 11/13/25 04:48 Diarrhea adhesive tape AdvReac Rash Verified 11/13/25 04:48 Dressing: Non-Medicated AdvReac Rash Verified 11/13/25 04:48 (bandaids) Family History Sister Hypertension Myocardial infarction Sister Heart disease Hypertension Grandmother CVA (cerebral vascular accident) Heart disease Brother Hypertension Father CVA (cerebral vascular accident) Sister Hypertension Sister Hypertension Mother Heart disease Surgical History History of carpal tunnel surgery History of hysterectomy Social History Smoking Status: Former smoker alcohol intake: never substance use type: does not use ROS ROS ED Constitutional Constitutional ED: Denies chills or fever(s) Eyes Eyes: Denies change in vision, diplopia or photophobia ENT ENT ED: Denies rhinorrhea or sore throat Cardiovascular Cardiovascular: Denies chest pain or palpitations Respiratory/Chest Respiratory/Chest: Denies cough or dyspnea Gastrointestinal Gastrointestinal: Denies abdominal pain, diarrhea, nausea or vomiting Genitourinary Genitourinary ED: Denies dysuria or hematuria Musculoskeletal Musculoskeletal: Reports neck pain; Denies back pain Integumentary Denies abscess or rash Neurologic Neurologic: Denies headache(s), paresthesias or weakness EXAM Physical Exam Const Vital Signs: 11/13/25 04:43 11/13/25 04:48 Temperature 97.3 F L Temperature Source Oral Pulse Rate 73 Respiratory Rate 16 Respiratory Effort Normal Respiratory Pattern Normal Blood Pressure 141/62 H Blood Pressure Mean 88 Pulse Ox 93 Oxygen Delivery Method Room Air Positive well nourished and well developed General Appearance ED: well developed and NAD HEENT Reports moist mucous membranes normocephalic and atraumatic Eyes PERRL and EOMs intact bilaterally Neck Neck Narrative: Holding head in the midline resistant to turning due to pain. She is very superficially tender throughout the left lower lateral anterior neck in the area appropriate for the insertion of the sternocleidomastoid on the clavicle. No palpable lymphadenopathy. No skin changes or erythema. No carotid bruits bilaterally. Mastoids are nontender and normal-appearing. Mild diffuse posterior neck tenderness. Resp normal respiratory effort and clear to auscultation bilaterally Cardio regular rate, regular rhythm and no murmurs GI non-tender and non-distended Auscultation: normoactive bowel sounds Palpation: soft Back/Spine no CVA tenderness General Back: other FROM Extremity normal to inspection General Extremety ED: Negative for edema, pulses abnormal or tenderness General Extremity: Negative for edema or pulses abnormal Neuro oriented x3, CN's II-XII intact bilaterally, no sensory deficits noted and gait normal Sensorium / Orientation: awake and alert Motor Exam: strength 5/5 throughout Psych Mood & Affect: anxious and tearful Skin no rashes or lesions noted and no wounds MDM MDM MDM Narrative Medical decision making narrative: Assessment: The patient is a 54-year-old female with PMH of cervical spinal stenosis and osteoarthritis presenting for 4?5 days of acutely worsened neck pain described as throbbing at the left lower neck, limiting range of motion and sleep. No fever, chills, arm or leg numbness, or focal weakness. Exam shows marked pain-limited cervical rotation and focal tenderness at the left sternocleidomastoid origin without lymphadenopathy or neurologic deficit. Given concern for cervical arterial dissection, a CTA neck was obtained and is normal?no dissection, obstruction, or aneurysm?though it notes multilevel cervical degenerative changes and a few small likely reactive lymph nodes. Labs are unremarkable. Absence of infectious signs and normal CTA make meningitis and vascular causes unlikely; presentation is most consistent with an acute flare of chronic cervical spondylosis causing cervicalgia. Plan: - IV morphine administered for analgesia. - IV ondansetron given for nausea prophylaxis. - IV Norflex 60 mg administered per patient request for muscle relaxation. - Prescribed short course of tramadol for breakthrough pain; patient declined [place]. - Prescribed outpatient muscle relaxer (specific agent not stated) for a few days. - Discussed findings and treatment limits; patient agrees with plan and will follow up with pain management. Diagnostics: - CTA neck: no arterial obstruction, dissection, or aneurysmal dilation; multilevel cervical degenerative changes; several small likely reactive cervical lymph nodes. - Labs: reported normal. Reevaluations: - After IV morphine the patient reports significant pain relief and improved comfort. She is able to move her head better, supporting musculoskeletal etiology rather than meningitis. Portions of this note were generated using voice recognition software ([employer] Dictation). I have reviewed the contents and every effort has been made to ensure accuracy; however, inadvertent errors in grammar, spelling, punctuation, or word choice may occur, that were not noted before signing the document and should not alter the intended clinical meaning. Lab Data Attestation: I reviewed the patient's lab results. Labs: Laboratory Results - last 24 hr 11/13/25 05:08 WBC 8.5 RBC 4.56 Hgb 14.2 Hct 44.2 MCV 96.9 MCH 31.1 MCHC 32.1 RDW Std Deviation 44.5 H RDW Coeff of Serafin 12.4 Plt Count 338 MPV 10.4 Immature Gran % (Auto) 0.200 Neut % (Auto) 58.3 Lymph % (Auto) 30.4 [place] % (Auto) 7.3 Eos % (Auto) 3.1 Baso % (Auto) 0.7 Absolute Neuts (auto) 5.0 Absolute Lymphs (auto) 2.59 Nucleated RBC % 0 Sodium 145 Potassium 4.4 Chloride 104 Carbon Dioxide 28.0 Anion Gap 12 BUN 15 Creatinine 0.92 Estim Creat Clear Calc 81.11 Est GFR (MDRD) Non-Af 74 BUN/Creatinine Ratio 16.6 Glucose 114 H Calcium 9.8 Radiography Diagnostic Testing: Clinical Impression(s) from Imaging Studies Neck CTA 11/13/25 05:44 IMPRESSION: 1. No evidence of large vessel cervical occlusion, hemodynamically significant stenosis, or aneurysmal dilatation. Moderate multilevel degenerative changes of the cervical spine. 2. Shotty cervical lymph nodes, likely reactive. 3. Degenerative changes of the cervical spine. Reading Location: [facility] Discharge Plan Triage Chief Complaint: Other, Pain/Inj ED Provider: Wilner Swanson Dx/Rx/DC Orders Clinical Impression: Cervicalgia, DDD (degenerative disc disease), cervical, Enlarged lymph node in neck, Acute torticollis Instructions: Torticollis ([place]) Prescriptions: New tramadol 50 mg tablet 50 mg PO Q6H PRN (Reason: pain) 2 Days Qty: 8 0RF orphenadrine citrate 100 mg tablet extended release 100 mg PO Q12H PRN (Reason: muscle pain) Qty: 6 0RF No Action Vyvanse 30 mg capsule 40 mg PO QAM fluticasone propionate [Allergy Relief (fluticasone)] 50 mcg/actuation spray,suspension 2 spray INTRANASAL DAILY nabumetone 750 mg tablet 750 mg PO BID hydroxyzine pamoate 50 mg capsule 50 mg PO 4X/DAY PRN (Reason: anxiety) omeprazole 40 mg capsule,delayed release(DR/EC) 40 mg PO DAILY levothyroxine [Synthroid] 150 mcg tablet 150 mcg PO DAILY Rx Instructions: one tab daily and 2 tabs Sat/Sun montelukast 10 mg tablet 10 mg PO QDAY Nurtec ODT 75 mg tablet,disintegrating 75 mg PO ONCE PRN (Reason: migraine headache) Rx Instructions: as a single dose cholecalciferol (vitamin D3) 50 mcg (2,000 unit) capsule 50 mcg PO QDAY trazodone 100 MG tablet 200 mg PO QHS pravastatin 40 MG tablet 40 mg PO QHS Patient Comments: TAKE 1 TABLET BY MOUTH ONCE DAILY fluoxetine 20 mg capsule 40 mg PO DAILY Patient Comments: TAKE 2 CAPSULES BY MOUTH IN THE MORNING AND 1 CAPSULE NIGHTLY Primary Care Provider: Jesse Carpio Referrals: Santiago Pugh DO [Non-Staff, Medical] - As soon as possible Jesse Carpio MD [Primary Care Provider, [facility]] Print Language: Ch[place] Disposition Disposition: Home, Self Care
--- OUTSIDE RECORDS SUMMARY | 2025-11-13 05:18 | XMS RPT_ITS | CCD ---
Author Organization [facility] Care Team Providers Care Lens Fabricating Machine Tender Name Role Phone LAURA BARNETT, DR INGRAM Primary Care Physician Jesse Carpio Referring Unavailable Jesse Carpio Primary Care Unavailable Julio Tate Attending Unavailable Román Miles Attending Unavailable Román Miles Referring Unavailable Jesse Carpio Primary Care Unavailable Román Miles Attending Unavailable Román Miles Referring Unavailable Jesse Carpio Primary Care Unavailable Román Miles Attending Unavailable Román Miles Referring Unavailable Jesse Carpio Primary Care Unavailable Julio Tate Attending Unavailable Julio Tate Referring Unavailable Jesse Carpio Primary Care Unavailable Jesse Carpio Primary Care Unavailable Jesse Carpio Attending Unavailable Jesse Carpio Referring Unavailable Allergies Allergy Classification Reported Allergen(s) Allergy Type Date of Onset Reaction(s) Facility (1 source) Adhesive Tape Drug allergy (disorder) [address] [place] [address] Repository (1 source) Dressing: Non-Medicated; Translations: [Dressing: Non-Medicated] Propensity to adverse reactions (disorder) [address] [place] [address] Problems Problem Classification Problem Date Documented Date Episodic/Chronic Disorders of lipid metabolism (1 source) Hyperlipidemia, unspecified; Translations: [Hyperlipidemia, unspecified] Onset: 12-15-2024 Chronic Other aftercare (1 source) rodent exterminator (current) use of anticoagulants; Translations: [rodent exterminator (current) use of anticoagulants] Onset: 07-26-2025 Episodic Other injuries and conditions due to external causes (1 source) Unspecified injury of unspecified ankle, initial encounter; Translations: [Unspecified injury of unspecified ankle, initial encounter] Onset: 08-21-2025 Episodic Other injuries and conditions due to external causes (1 source) Unspecified injury of left ankle, initial encounter; Translations: [Unspecified injury of left ankle, initial encounter] Onset: 08-26-2025 Episodic Spondylosis; intervertebral disc disorders; other back problems (1 source) Other cervical disc degeneration, unspecified cervical region; Translations: [Other cervical disc degeneration, unspecified cervical region] Onset: 12-14-2024 Chronic Unclassified (1 source) Other intervertebral disc degeneration, lumbar region without mention of lumbar back pain or lower extremity pain; Translations: [Other intervertebral disc degeneration, lumbar region without mention of lumbar back pain or lower extremity pain] Onset: 07-20-2025 Results Test Name Value Interpretation Reference Range Facil ity Ankle min 3 Viewson 08-21-20 Ankle min 3 Views [facility] Imaging Services [address] [place], [place] [address] Ankle min 3 Views MR#: [id number] Acct: [id number] Name: TAL MEDRANO ANALI Rep #: [id number] : 1970 F 54 From: Sumit Stacy MD PCP: Dr. Jesse Carpio MD Status: REG CLI Study: Ankle min 3 Views Date of Exam: 08/21/25 Exam# [id number] Ordering Dr: Julio Andujar PROCEDURE: ANKLE MIN 3 VIEWS 08/21/2025 REASON FOR EXAM: ANKLE INJURY TECHNIQUE: Procedure Code: RADANK Modality: DX Procedure: ANKLE MIN 3 VIEWS Laterality: Left COMPARISON: None. FINDINGS: There is no evidence of fracture or dislocation. There are no significant joint space abnormalities. There are no significant soft tissue abnormalities. RAD/Ankle min 3 Views IMPRESSION: NO ACUTE FRACTURE OR DISLOCATION. Reading Location: [place] [address] CC: Dr. Jesse Carpio MD; JACLYN Yeboah Fermenter: Signed Normal [facility] Urgent Care Visit Reporton 0 08-21-2025 Urgent Care Visit Report [facility] [address], [address] [place], [place] [address] OFFICE VISIT Date of Service: 08/21/25 MR#: [id number] Acct: [id number] Name: TAL MEDRANO Rep #: [id number] : 1970 Provider: JACLYN Yeboah Age/Sex: 54/F Location: [facility] Status: Signed Intake Vital Signs 08/01/24 16:03 08/21/25 15:47 Height 5 ft 5 in 5 ft 5 in Weight: 223 lb BMI 37.0 BP 138/70 H Blood Pressure Location Lt brachial Position Sitting Pulse 77 Pulse Source Monitor Temp 98.1 F Temp Source Oral Pulse Oximetry (%) 95 Oxygen Delivery Method room air Intake Visit Reasons: left ankle injury Chief Complaint: Left Ankle Injury Accompanied by: Self Allergies adhesive tape Adverse Reaction (Verified 08/21/25 15:42) Rash Dressing: Non-Medicated (bandaids) Adverse Reaction (Verified 08/21/25 15:42) Rash Medications ???Medication ???Instructions ???Recorded ???Confirmed ???Type sennosides 8.6 mg tablet 1 tablet PO BID PRN Constipation 1 01/18/16 08/21/25 History trazodone 100 mg tablet 200 mg PO QHS 11/17/16 08/21/25 Hi story pravastatin 40 mg tablet 40 mg PO QHS 03/28/17 08/21/25 His tory fluticasone propionate 50 2 spray intranasal DAILY 12/27/18 08/21/25 History mcg/actuation nasal spray,suspension (Allergy Relief (fluticasone)) lisdexamfetamine 30 mg capsule 40 mg PO QAM 12/27/18 08/21/25 His tory (Vyvanse) omeprazole 20 mg tablet,delayed 20 mg PO DAILY 12/27/18 08/21/25 H istory release levothyroxine 100 mcg tablet See Rx Instructions .Route .COMPLE X 03/02/20 08/21/25 History fluoxetine 20 mg capsule 20 mg PO DAILY 03/13/22 08/21/25 H istory gabapentin 400 mg capsule 03/13/22 08/21/25 History nabumetone 750 mg tablet 750 mg PO BID 08/21/25 08/21/25 Hi story prednisone 50 mg tablet 50 mg PO QDAY #5 tabs 08/21/25 Rx tramadol 50 mg tablet 25 - 50 mg PO TID PRN pain 5 08/21/25 History Nurse's Note: Walking for 2-3 weeks. Achy. hurts to walk today, swollen. [facility] Medical History (Updated 08/21/25 @ 16:51 by Julio ANAYA, PA) Left ankle sprain PTSD (post-traumatic stress disorder) Cardiac murmur Mixed hyperlipidemia MARLYN on CPAP Suicidal overdose Depression Anxiety Nonrheumatic mitral (valve) prolapse Sinus bradycardia Suicidal overdose Benzodiazepine overdose Dysmenorrhea Menorrhagia Sinusitis Surgical History History of carpal tunnel surgery History of hysterectomy Family History Sister Hypertension Myocardial infarction Sister Heart disease Hypertension Grandmother CVA (cerebral vascular accident) Heart disease Brother Hypertension Father CVA (cerebral vascular accident) Sister Hypertension Sister Hypertension Mother Heart disease Social History Smoking Status: Never smoker alcohol intake: never substance use type: does not use HPI HPI Chief Complaint: Left Ankle Injury Details: TAL MEDRANO, is a 54 F who presents to the office today for acute onset left medial ankle discomfort with swelling of unknown ideology, this states she started a walking routine approximately 2 to 3 weeks ago and wonders if this could potentially be contributing factor. No history of traumatic blow or twist/torque of the same as far as she can recall. No left ankle/hip complaints upon questioning. No history of gout or other connective tissue disorders upon questioning. No other associated symptoms and no other alleviating/aggravati ng factors. ROS Const Constitutional: No other (As above) Exam Const General: cooperative, healthy appearing and no acute distress Orientation: alert and awake Resp Effort Inspection: normal respiratory effort and able to speak in complete sentences Cardio Rate: regular rate Pulses: radial pulses present Skin General: no rashes or lesions noted Neuro General: patient alert and patient awake Cognition: normal cognition Speech: speech normal Extrem General: capillary refill normal and normal exam except as noted (Left medial ankle soft tissue swelling distal to the medial malleolus) Other: Left ankle: Guarded FAROM to all, negative drawer, no Achilles step-off or palpable tender, no plantar fascia tender to palpation. Psych Appearance: grossly normal Mental Status: mental status grossly normal Mood: congruent mood Affect: normal affect Speech and Movement: speech and movement normal Attitude: cooperative Coding Level of Care Code Off vis,est,level 3 Diagnoses Left ankle sprain S93.402A Assessment and Plan Assessment and Plan (1) Left ankle sprai (more content not included)... Normal [facility] Basic Metabolic Profile (BMP )on 07-20-2025 BUN/CRE 19.0 RATIO Normal 10-20 [facility] Comment on above: Performed By: #### L 500.2500 #### [facility] Laboratory [address] [place], [address] Calcium [Mass/Vol] 9.4 mg/dL Normal 7.6-11.0 [facility] Comment on above: Performed By: #### L 500.2500 #### [facility] Laboratory [address] [place], [address] Chloride [Moles/Vol] 105 mmol/L Normal 98-108 [facility] Comment on above: Performed By: #### L 500.2500 #### [facility] Laboratory [address] [place], [address] CO2 [Moles/Vol] 26.1 mmol/L Normal 21.0-32.0 [facility] Comment on above: Performed By: #### L 500.2500 #### [facility] Laboratory [address] [place], [address] Creatinine [Mass/Vol] 0.68 mg/dL Low 0.70-1.20 [facility] Comment on above: Performed By: #### L 500.2500 #### [facility] Laboratory [address] [place], [address] GAP 10 Normal 5-15 [facility] Comment on above: Performed By: #### L 500.2500 #### [facility] Laboratory [address] [place], [address] GFR/1.73 sq M.predicted among non-blacks MDRD (S/P/Bld) [Vol rate/Area] 103 mL/min/{1.73_m2} Normal >60 [facility] Comment on above: Result Comment: mL/m in/1.73m2 CKD-EPI Creatinine Equation (2020) Performed By: #### L 500.2500 #### [facility] Laboratory [address] [place], [address] Glucose [Mass/Vol] 93 mg/dL Normal 70-99 [facility] Comment on above: Performed By: #### L 500.2500 #### [facility] Laboratory [address] [place], [address] Potassium [Moles/Vol] 4.3 mmol/L Normal 3.3-5.1 [facility] Comment on above: Performed By: #### L 500.2500 #### [facility] Laboratory [address] [place], [address] Sodium [Moles/Vol] 141 mmol/L Normal 133-145 [facility] Comment on above: Performed By: #### L 500.2500 #### [facility] Laboratory [address] [place], [address] Urea nitrogen [Mass/Vol] 13 mg/dL Normal 4-19 [facility] Comment on above: Performed By: #### L 500.2500 #### [facility] Laboratory [address] [place], [address] L/S Spine Comp/w Bending Vie wson 07-17-2025 L/S Spine Comp/w Bending Views [facility] Imaging Services [address] [place] [address] L/S Spine Comp/w Bending Views MR#: [id number] Acct: [id number] Name: TAL MEDRANO ANALI Rep #: [id number] : 1970 F 54 From: Chanel Anaya PCP: Dr. Jesse Carpio MD Status: REG CLI Study: L/S Spine Comp/w Bending Views Date of Exam: 0 07/17/25 Exam# [id number] Ordering Dr: Román Miles MD PROCEDURE: L/S SPINE COMP/W BENDING VIEWS 07/17/2025 REASON FOR EXAM: LUMBAR DEGENERATIVE DISC DISEASE TECHNIQUE: L/S SPINE COMP/W BENDING VIEWS COMPARISON: None FINDINGS: 6 views of the lumbosacral spine were obtained. There is normal mineralization of the osseous structures. There are no fractures of the sacrum. There are 5 lumbar-type vertebral bodies below the last set of paired ribs. The vertebral body heights are within normal limits. There is no spondylolysis. There is approximately 4 mm of anterolisthesis of L4 in relationship to L5. There is no instability on the flexion or extension views. The remaining alignment of the vertebral bodies is within normal limits. Very mild spondylosis is noted involving the lumbar spine. There is disc space narrowing involving the L5-S1 disc space. There is some bony encroachment on the neural foramina at this level. The remaining disc spaces are well-maintained. The paravertebral structures are grossly unremarkable. RAD/L/S Spine Comp/w Bending Views IMPRESSION: 4 mm of anterolisthesis of L4 in relationship to L5. There is no instability on the flexion or extension views. Degenerative disc disease involving the L5-S1 disc. Reading Location: [facility] CC: Dr. Jesse Carpio MD; Dr. Román Miles MD Fermenter: Signed Normal [facility] Cerv Spine Obl/Flex/Ext Comp on 11-22-2024 Cerv Spine Obl/Flex/Ext Comp [facility] Imaging Services [address] [place] [address] Cerv Spine Obl/Flex/Ext Comp MR#: [id number] Acct: [id number] Name: TAL MEDRANO ANALI Rep #: [id number] : 1970 F 53 From: Gigi Swenson MD PCP: Dr. Jesse Carpio MD Status: REG CLI Study: Cerv Spine Obl/Flex/Ext Comp Date of Exam: Exam# [id number] Ordering Dr: Román Miles MD [id number] STUDY: X-RAY - CERVICAL SPINE REASON FOR EXAM: Female, 53 years old. cervical disc degeneration TECHNIQUE: 7 view(s) of the cervical spine were obtained. COMPARISON: 06/02/2019 FINDINGS: Normal anterior atlantoaxial articulation. Normal odontoid process. Normal cervical lordosis. No subluxation on the flexion-extension views to suggest instability. There is multi-level endplate spondylosis. There is multi-level degenerative disc disease with multilevel disc space narrowing. Normal visualized intervertebral neuroforamina. The soft tissue structures are unremarkable. RAD/Cerv Spine Obl/Flex/Ext Comp IMPRESSION: Degenerative disc disease lower cervical spine. No instability. Electronically Signed: Gigi Swenson MD at 23:12 EST , CC: Dr. Jesse Carpio MD; Dr. Román Miles MD Fermenter: Signed Normal [facility] Comprehensive Metabolic Prof elioandrew 11-18-2024 Albumin [Mass/Vol] 3.7 g/dL Normal 3.2-5.0 [facility] Comment on above: Performed By: #### L 500.4050, L500.4100, L501.9520, L506.1000 #### [facility] Laboratory [address] [place], [place], [address] Albumin/Globulin [Mass ratio] 1.0 {ratio} Normal 0.9-2.4 [facility] Comment on above: Performed By: #### L 500.4050, L500.4100, L501.9520, L506.1000 #### [facility] Laboratory [address] [place], [address] ALK P 97 U/L Normal 45-117 [facility] Comment on above: Performed By: #### L 500.4050, L500.4100, L501.9520, L506.1000 #### [facility] Laboratory [address] [place], [address] ALT [Catalytic activity/Vol] 31 U/L Normal 13-56 [facility] Comment on above: Performed By: #### L 500.4050, L500.4100, L501.9520, L506.1000 #### [facility] Laboratory [address] [place], [address] AST [Catalytic activity/Vol] 14 U/L Low 15-37 [facility] Comment on above: Performed By: #### L 500.4050, L500.4100, L501.9520, L506.1000 #### [facility] Laboratory [address] [place], [address] Bilirubin [Mass/Vol] 0.60 mg/dL Normal 0.20-1.00 [facility] Comment on above: Result Comment: For patients on eltrombopag therapy, use of Dimension [place] TBIL is not recommended. Performed By: #### L 500.4050, L500.4100, L501.9520, L506.1000 #### [facility] Laboratory [address] [place], [address] BUN/CRE 17.2 RATIO Normal 10-20 [facility] Comment on above: Performed By: #### L 500.4050, L500.4100, L501.9520, L506.1000 #### [facility] Laboratory [address] [place], [address] CA,Total 9.4 mg/dL Normal 8.5-10.1 [facility] Comment on above: Performed By: #### L 500.4050, L500.4100, L501.9520, L506.1000 #### [facility] Laboratory [address] [place], [address] Chloride [Moles/Vol] 107 mmol/L Normal 98-107 [facility] Comment on above: Performed By: #### L 500.4050, L500.4100, L501.9520, L506.1000 #### [facility] Laboratory [address] [place], [address] CO2 [Moles/Vol] 31.0 mmol/L Normal 21.0-32.0 [facility] Comment on above: Performed By: #### L 500.4050, L500.4100, L501.9520, L506.1000 #### [facility] Laboratory [address] [place], [address] Creatinine [Mass/Vol] 0.87 mg/dL Normal 0.55-1.02 [facility] Comment on above: Result Comment: The validity of the calculated GFR GFRAA in patients over 70 years has not been determined. Clinical correlation is essential. Performed By: #### L 500.4050, L500.4100, L501.9520, L506.1000 #### [facility] Laboratory [address] [place], [address] EST GFR - AA 87 mL/min Normal >60 [facility] Comment on above: Result Comment: Afri can Israeli GFR Calc Performed By: #### L 500.4050, L500.4100, L501.9520, L506.1000 #### [facility] Laboratory [address] [place], [address] GAP 1 Low 5-15 [facility] Comment on above: Performed By: #### L 500.4050, L500.4100, L501.9520, L506.1000 #### [facility] Laboratory [address] [place], [address] GFR/1.73 sq M.predicted among non-blacks MDRD (S/P/Bld) [Vol rate/Area] 72 mL/min/{1.73_m2} Normal >60 [facility] Comment on above: Result Comment: Non- GFR Calc Performed By: #### L 500.4050, L500.4100, L501.9520, L506.1000 #### [facility] Laboratory [address] [place], [address] Globulin (S) [Mass/Vol] 3.8 g/dL Normal 2.2-4.2 [facility] Comment on above: Performed By: #### L 500.4050, L500.4100, L501.9520, L506.1000 #### [facility] Laboratory [address] [place], [address] Glucose [Mass/Vol] 112 mg/dL High 74-106 [facility] Comment on above: Result Comment: Fast ing Glucose result from 100 to 125 mg/dL suggests IMPAIRED HOMEOSTASIS per A.D.A. criteria. Performed By: #### L 500.4050, L500.4100, L501.9520, L506.1000 #### [facility] Laboratory [address] [place], [address] Potassium [Moles/Vol] 4.2 mmol/L Normal 3.5-5.1 [facility] Comment on above: Performed By: #### L 500.4050, L500.4100, L501.9520, L506.1000 #### [facility] Laboratory [address] [place], [address] Sodium [Moles/Vol] 140 mmol/L Normal 136-145 [facility] Comment on above: Performed By: #### L 500.4050, L500.4100, L501.9520, L506.1000 #### [facility] Laboratory [address] [place], [address] T PROT 7.5 g/dL Normal 6.4-8.2 [facility] Comment on above: Performed By: #### L 500.4050, L500.4100, L501.9520, L506.1000 #### [facility] Laboratory [address] [place], [address] Urea nitrogen [Mass/Vol] 15 mg/dL Normal 7-18 [facility] Comment on above: Performed By: #### L 500.4050, L500.4100, L501.9520, L506.1000 #### [facility] Laboratory [address] [place], [address] Lipid Profileon 11-18-2024 Cholesterol [Mass/Vol] 203 mg/dL High 200 [facility] Comment on above: Result Comment: <200 mg/dL Desirable 200-240 mg/dL Borderline >240 mg/dL High Risk Performed By: #### L 500.4050, L500.4100, L501.9520, L506.1000 #### [facility] Laboratory [address] [place], [address] Cholesterol in HDL [Mass/Vol] 69 mg/dL Normal [facility] Comment on above: Result Comment: The drugs N-Acetylcysteine and Metamizole may falsely depress this assay. Reference Range HDL <40 mg/dL Low HDL Cholesterol HDL >or= 60 mg/dL High HDL Cholesterol Performed By: #### L 500.4050, L500.4100, L501.9520, L506.1000 #### [facility] Laboratory [address] [place], [address] Cholesterol in LDL [Mass/Vol] 101 mg/dL Normal 0-130 [facility] Comment on above: Performed By: #### L 500.4050, L500.4100, L501.9520, L506.1000 #### [facility] Laboratory [address] [place], [address] Cholesterol in VLDL [Mass/Vol] 33 mg/dL Normal 5-40 [facility] Comment on above: Performed By: #### L 500.4050, L500.4100, L501.9520, L506.1000 #### [facility] Laboratory [address] [place], [address] Triglyceride [Mass/Vol] 166 mg/dL Normal [facility] Comment on above: Result Comment: The drugs N-Acetylcysteine and Metamizole may falsely depress this assay. Serum Triglycerides Reference Interval Normal <150 mg/dL Borderline high 150 - 199 mg/dL High 200 - 499 mg/dL Very High > or = 500 mg/dL Performed By: #### L 500.4050, L500.4100, L501.9520, L506.1000 #### [facility] Laboratory [address] [place], [address] Thyroid Stim Hormone (TSH)on 11-18-2024 TSH 1.380 uIU/mL Normal 0.358-3.740 [facility] Comment on above: Performed By: #### L 500.4050, L500.4100, L501.9520, L506.1000 #### [facility] Laboratory [address] [place], [address] Vitamin D,25 Hydroxyon 11-18 Vitamin D 25-OH 29.6 ng/mL Normal [facility] Comment on above: Result Comment: Brisa min D 25(OH) Status Range Deficiency <20 ng/mL (50nmol/L) Insufficiency 20 - 30 ng/mL (50 - 75 nmol/L) Sufficiency 30 - 100 ng/mL (75 - 250 nmol/L) Toxicity >100 ng/mL (>250 nmol/L) Performed By: #### L 500.4050, L500.4100, L501.9520, L506.1000 #### [facility] Laboratory [address] [place], [address] MRI LUMBAR SPINE WO IVCONon 12-23-2021 MRI LUMBAR SPINE WO IVCON * * *Final Report* * * DATE OF EXAM: Dec 23 2021 11:08AM WRPrabhakar 0303 - MRI LUMBAR SPINE WO IVCON [...] and assume there are 5 lumbar-type vertebrae. Fermenter: PSCB Transcribe Date/Time: Dec 23 2021 12:50P Dictated by : JOAQUIN TREJO MD This examination was interpreted and the report reviewed and electronically signed by: JOAQUIN TREJO MD on Dec 23 2021 12:53PM EST [id number] Normal [facility] SPINE LUMBOSACRAL 2 OR 3 VIEWSon [...] 3:17:34 PM Ordering Provider: JOSE ALFREDO REFERRING [facility] ([place]) Encounters Encounter Date Encounter Type Care Provider Facility Start: 08-21-2025 End: 08-21-2025 ambulatory Jesse Carpio Facility:[facility] Start: 08-21-2025 End: 08-21-2025 ambulatory Julio ANAYA Facility:[facility] [place] Start: 07-20-2025 End: 07-20-2025 [facility] [place] Start: 07-17-2025 End: 07-17-2025 ambulatory Román [facility] Facility:[facility] [place] Start: 11-22-2024 End: 11-22-2024 ambulatory Román [facility] Facility:[facility] [place] Start: 11-18-2024 End: 11-18-2024 ambulatory [facility] Facility:[facility] [place] Start: 09-07-2021 End: 09-07-2021 Patient encounter procedure JOSE ALFREDO SANTOS REFERRING [facility] Payers Date Payer Category Payer Self-pay 2020 Private Health Insurance [id number] Unknown [id number] [id number] [id number] Unknown [id number] 2.16.8 [id number] Unknown [id number] 2.16.8 [id number] Unknown [id number] 2.16.8 [id number] Unknown [id number] 2.16.8 [id number] Unknown [id number] 2.16.8 [id number] Social History Date Type Detail Facility [facility] Sex Assigned At Female [facility] Progress note 12-23-2021 Note Date & Type Note Facility 12-23-2021 Note HNO ID: [id number] Author: RT Marcel(R) Service: ? Author Type: Technologist Type: Progress Notes Filed: 12/23/2021 10:42 AM Note Text: Radiology Service Progress Note PATIENT NAME: Tal Medrano DATE OF SERVICE: December 23, 2021 TIME: [...] RT Marcel(R) December 23, 2021 10:42 AM [facility] Evaluation + Plan note Note Date & Type Note Facility Evaluation + Plan note No data available for this section [facility] Hospital Discharge instructions Note Date & Type Note Facility Hospital Discharge instructions No data available for this section [facility] Summary Purpose Family History No Family History Records FoundNo Family History Records FoundNo Family History Records Found Advance Directives No Advanced Directives Records FoundNo Advanced Directives Records FoundNo Advanced Directives Records Found Additional Source Comments INFORMATION SOURCE (unrecogn ized section and content) DATE CREATED AUTHOR 09/10/2021 [facility] ([place]) DATE CREATED AUTHOR AUTHOR'S ORGANIZ ATION 02/14/2022 [facility] DATE CREATED AUTHOR AUTHOR'S ORGANIZ ATION 08/27/2025 [facility] FOR RECORDS PERTAINING TO PATIENTS WHO ARE [...] BE BASED ON THE PRIMARY CLINICAL RECORDS. [facility]. provides no warranty or guarantee of the accuracy or completeness of information in this document.
[2025-11-13 05:19] LABS: Hematocrit 44.2 % (37-47); Hemoglobin 14.2 g/dL (12.0-15.0); Immature Granulocytes Count 0.020 X10^3/uL (0.0-0.0); Mean Corp Hgb Conc 32.1 g/dL (32-36); Mean Corpuscular Volume 96.9 fL (81-99); Mean Platelet Vol. 10.4 fl (6.2-12.0); NRBC Flagged by Analyzer 0 % (0-5); Platelet Count 338 K/mm3 (150-450); RBC Distribution Width CV 12.4 % (11.6-14.6); RBC Distribution Width SD 44.5 fl (35.1-43.9); Red Blood Count 4.56 M/mm3 (4.2-5.4); White Blood Count 8.5 K/mm3 (4.4-11.0)
[2025-11-13 05:32] LABS: Anion Gap 12 (5-15); BUN 15 mg/dL (4-19); BUN/Creat Ratio 16.6 RATIO (10-20); Calcium,Total 9.8 mg/dL (7.6-11.0); Carbon Dioxide 28.0 mmol/L (21.0-32.0); Chloride 104 mmol/L (98-108); Estimated Creatinine Clearance 81.11 ml/min (50-250); Glucose 114 mg/dL (70-99); Potassium 4.4 mmol/L (3.3-5.1)
--- NOTE | 2025-11-13 05:44 | CT_ITS ---
PROCEDURE: CTA NECK W/WO CONTRAST 11/13/2025 REASON FOR EXAM: SEVERE LEFT NECK PAIN TECHNIQUE: Procedure Code: CTCTANEWW Modality: CT Procedure: CTA NECK W/WO CONTRAST Multiplanar Sagittal and Coronal images were obtained. 3D post processing was performed CONTRAST: Isovue 370 VOLUME: 100 mL One or more dose reduction techniques were used (e.g., Automated exposure control, adjustment of the mA and/or kV according to patient size, use of iterative reconstruction technique). RADIATION DOSE SUMMARY: CTDlvol: 24.91+ 17.56 mGy DLP: 473.7 mGycm COMPARISON: 20 May 2021 FINDINGS: Aortic Arch: Normal size and branching pattern. Mild atherosclerotic plaque. Brachiocephalic and Subclavians: Mild atherosclerotic plaque without significant stenosis. RIGHT Carotid: Right CCA: Normal. Right ICA: Normal. Maximum stenosis (NASCET): <10 % Right ECA: Normal. LEFT Carotid: Left CCA: Normal. Left ICA: Normal. Maximum stenosis (NASCET): <10 % Left ECA: Normal. Vertebrals: The left vertebral artery is diminutive in the right is dominant. RIGHT Vertebral: No stenosis. LEFT Vertebral: No hemodynamically significant stenosis. Overall appearance is unchanged compared to previous examination. Other findings: Straightening of the cervical lordotic curvature with moderate multilevel degenerative changes. C4-T1 disc space narrowing with anterior bridging osteophytes. Lung apices are clear. Paravertebral soft tissues are within normal limits. Bilateral dependent atelectasis. Shotty cervical lymph nodes which are not pathologic based on short axis size criteria. CT/CTA Neck W/WO Contrast IMPRESSION: 1. No evidence of large vessel cervical occlusion, hemodynamically significant stenosis, or aneurysmal dilatation. Moderate multilevel degenerative changes of the cervical spine. 2. Shotty cervical lymph nodes, likely reactive. 3. Degenerative changes of the cervical spine. Reading Location: [id number]
[2025-11-13] MEDS: Orphenadrine 60 MG/2 ML Ampul IV (06:35)
[2025-11-13 06:38] VITALS: BP 112/65; PULSE 63; RESP 18; TEMP 36.4; O2SAT 96
== END 2025-11-13 06:43 | disposition home or self-care (01) ==
PROVIDERS: Emergency Provider Emergency Medicine; PCP Family Medicine; Visit Provider Emergency Medicine
DX: M43.6 Torticollis (principal); M48.02 Spinal stenosis, cervical region; M47.812 Spondylosis without myelopathy or radiculopathy, cervical region; R59.0 Localized enlarged lymph nodes; I34.1 Nonrheumatic mitral (valve) prolapse; E03.9 Hypothyroidism, unspecified; E78.2 Mixed hyperlipidemia; K21.9 Gastro-esophageal reflux disease without esophagitis; F41.9 Anxiety disorder, unspecified; F32.A Depression, unspecified; F43.10 Post-traumatic stress disorder, unspecified; G47.33 Obstructive sleep apnea (adult) (pediatric); Z79.899 Other long term (current) drug therapy; Z79.890 Hormone replacement therapy; Z87.891 Personal history of nicotine dependence
CPT/HCPCS: 70498; 80048; 85025; 96374; 96375; 99283; Q9967; A4216; J2405

== ENCOUNTER → 2025-11-14 | Outpatient (CLI) | payer OTHER, SELFPAY ==
--- NOTE | 2025-11-14 15:47 | RAD_ITS ---
EXAM: XR Bilateral Ribs and AP Chest, 3 or More Views CLINICAL INDICATION: NO INJURY-UPPER ANTERIOR PAIN AND LOWER L POSTERIOR PAIN X 6 DAYS TECHNIQUE: Frontal and oblique views of the bilateral ribs and frontal view of the chest. COMPARISON: No relevant prior studies available. FINDINGS: LUNGS AND PLEURAL SPACES: Right basilar atelectasis or pneumonia. HEART: Cardiomegaly with mild congestion. MEDIASTINUM: Unremarkable. Normal mediastinal contour. BONES/JOINTS: Unremarkable. No displaced rib fractures. RAD/Ribs Eros Min 4V w/PA Chest IMPRESSION: 1. No displaced rib fractures. 2. Right basilar atelectasis or pneumonia. 3. Cardiomegaly with mild congestion. Reading Location: [id number]
== END | disposition home or self-care (01) ==
LOC: MTRAD 15:47
PROVIDERS: PCP Family Medicine; Referring Provider Family Medicine; Visit Provider Family Medicine
DX: R07.89 Other chest pain (principal)
CPT/HCPCS: 71111